=== PATIENT | male | born 1965 | race Caucasian/White ===

== ENCOUNTER 2016-09-16 01:31 | Inpatient (IN) | payer MEDICAID ==
[2016-09-16] VITALS (12 sets, daily range): BP systolic 116–138; BP diastolic 68–87
[~2016-09-16] VITALS: Ht 185.4 cm; Wt 83.5 kg
--- NOTE | 2016-09-16 01:57 | NUR ---
PT A/OX4 BREATHING EFFORTLESSLY ON ROOM AIR, PT STATES HE HAS BEEN HAVING A LUMP BY HIS TESTICLES FOR A WHILE AND WAS LIFTING A HEAVY BOX OF T SHIRTS TODAY AND FELT SOMETHING POP, SCROTUM IS SWOLLEN, MD MADE AWARE WILL CONTINUE TO MONITOR
[2016-09-16] MEDS ORDERED: KETOROLAC TROMETHAMINE INJ 60 MG/2 ML VIAL IM ONE ×2 (02:14→02:30)
[2016-09-16 02:41] LABS: APPEARANCE,URINE CLEAR (CLEAR); BILIRUBIN,URINE NEGATIVE (NEGATIVE); BLOOD, URINE NEGATIVE Ery/uL (NEGATIVE); COLOR,URINE YELLOW (YELLOW); KETONES,URINE NEGATIVE (NEGATIVE); LEUKOCYTE ESTERASE ,URINE NEGATIVE (NEGATIVE); NITRITE, URINE NEGATIVE (NEGATIVE); PROTEIN,URINE NEGATIVE (NEGATIVE); UGLUCOSE NEGATIVE (NEGATIVE); UROBILINOGEN,URINE 0.2 EU/dL (0.2)
[2016-09-16] MEDS ORDERED: HYDROMORPHONE 1 MG/1 ML DISP.SYRIN IV ONE (03:30)
[2016-09-16] MEDS ORDERED: ONDANSETRON HCL/PF 4 MG/2 ML VIAL IV ONE (03:30)
[2016-09-16] MEDS ORDERED: ONDANSETRON HCL/PF 4 MG/2 ML VIAL ONE (03:56)
[2016-09-16] MEDS ORDERED: HYDROMORPHONE 1 MG/1 ML DISP.SYRIN ONE (03:56)
--- NOTE | 2016-09-16 04:20 | NUR ---
PT TRIED TO PUSH HERNIA BACK IN AND WAS SUCCESSFUL WITH MD AT BEDSIDE, PT ASKED TO STAND UP AND HERNIA CAME BACK OUT, MD AT BEDSIDE WILL CONTINUE TO MONITOR.
[2016-09-16 05:09] LABS: BASOPHILS % (AUTO) 0.7 % (0.0-2.0); EOSINOPHILS # (AUTO) 0.3 /CMM (0.0-0.7); EOSINOPHILS % (AUTO) 5.2 % (0.0-6.0); HEMATOCRIT 26 % (39-51); HEMOGLOBIN 7.9 g/dL (13.5-17.5); LYMPHOCYTES # (AUTO) 1.5 /CMM (0.8-4.8); LYMPHOCYTES % (AUTO) 24.8 % (20.0-44.0); MEAN CORPUSCULAR HEMOGLOBIN 19 PG (26.0-33.0); MEAN CORPUSCULAR HGB CONC 30 g/dl (31.0-36.0); MEAN CORPUSCULAR VOLUME 64 fL (80-96); MONOCYTES # (AUTO) 0.5 /CMM (0.1-1.30); MONOCYTES % (AUTO) 7.6 % (2.0-12.0); NEUTROPHILS # (AUTO) 3.8 /CMM (1.8-8.9); NEUTROPHILS % (AUTO) 61.7 % (43.0-81.0); PLATELET COUNT (AUTO) 306 /CMM (150-450); RDW COEFFICIENT OF VARIATION 16.7 (11.5-15.0); RED BLOOD CELL COUNT(AUTO) 4.14 MIL/uL (4.5-6.0); WHITE BLOOD COUNT (AUTO) 6.2 K/uL (4.3-11.0)
[2016-09-16 05:18] LABS: CALCIUM, SERUM 8.3 mg/dL (8.5-10.1); CREATININE 0.8 mg/dL (0.6-1.3); POTASSIUM 3.9 mmol/L (3.5-5.1)
[2016-09-16 05:22] LABS: INR 0.94 (0.87-1.13)
--- NOTE | 2016-09-16 05:45 | NUR ---
admission notes: received report from [facility] car framer. pt came in for hernia, scrotal swelling x1 day, pt is a/o x3, brought to the unit via gurney. noted ble edema and both feet edema. received with iv on right side of the forehead, nursing sup lanel aware, for picc line/ midline insertion. vs taken and recorded, pt oriented to unit policy and rounding, took pictures of skin issues, however pt refused for picture of scrotum, education provided to the pt. ble offloaded. inventory of belonging completed by denise vyas. safety precautions for fall initiated call light in reach,will continue to monitor
[2016-09-16 06:00] LABS: EOSINOPHILS % (MANUAL) 6 % (0-4); LYMPHOCYTES % (MANUAL) 21 % (16-48); MONOCYTES % (MANUAL) 8 % (0-11.0); NEUTROPHILS % (MANUAL) 65 (42-76); PLATELET ESTIMATE ADEQUATE
[2016-09-16 06:01] LABS: HYPOCHROMASIA 2+
--- NOTE | 2016-09-16 06:45 | NUR ---
ms rn notes: tried to insert new iv, but unsuccessful, per rn sup already contacted for midline insertion, md aware, also found 5syringes and spoon on pt's bag but claiming its his friends, confiscated placed on francis bag,with pt's sticker, per harlette to endorse it to day rn, place it on four slide machine setter the nurses station.
--- NOTE | 2016-09-16 06:55 | NUR ---
ms rn notes: dr elena called back, informed pt already here, he stated he will put in the order, also made aware of midline insertion and pt's h/h 7.03/22
[2016-09-16] MEDS ORDERED: ONDANSETRON HCL/PF 4 MG/2 ML VIAL IVP PRN (07:00)
[2016-09-16] MEDS ORDERED: Z GUARD REMEDY 2 OZ OINT TP PRN (07:00)
[2016-09-16] MEDS ORDERED: MAGNESIUM HYDROXIDE 30 ML UDC PO PRN (07:00)
[2016-09-16] MEDS ORDERED: HYDROCODONE/APAP 5/325MG 1 EACH TABLET PO PRN ×2 (07:00→12:30)
[2016-09-16] MEDS ORDERED: MAG HYDROX/AL HYDROX/SIMETH 30 ML UDC PO PRN (07:00)
[2016-09-16] MEDS ORDERED: MORPHINE SULFATE INJ 2 MG/ML DISP.SYRIN IV PRN (07:00)
[2016-09-16] MEDS ORDERED: ACETAMINOPHEN 325 MG TABLET PO PRN (07:00)
--- NOTE | 2016-09-16 07:00 | NUR ---
ms rn notes: per pt he's willing to receive flu vaccine. will put an order
--- NOTE | 2016-09-16 07:02 | NUR ---
MS RN NOTES: PER PT HE'S WILLING TO RECEIVE FLU VACCINE PRIOR TO DC, ASKED RN AMARI IF OKAY TO PUT THE ORDER NOW, BUT SINCE PT WILL HAVE POSSIBLE SURGERY WERE CONCERN ABOUT ANY POTENTIAL REACTION, SO WILL ENDORSE TO DAY RN TO PLEASE GIVE FLU VACCINE PRIOR TO DC.
--- NOTE | 2016-09-16 07:04 | NUR ---
ms rn closing notes: pt on bed, sleeping, no facial grimace noted, ble kept offloaded on pillows. on npo for surgical consult with dr burns. vs stable, needs attended. safety precautions for fall remains engaged, call light in reach,will endorse to day rn for jack.
--- NOTE | 2016-09-16 07:15 | NUR ---
MS RN NOTES: RECEIVED CALL FROM KOLE KERR RN STATED HE'S NOT AVAILABLE TO COME, BUT HE WILL FIND SOMEONE TO DO THE MIDLINE, RN SUP MADE AWARE
[2016-09-16] MEDS: PANTOPRAZOLE 40 MG TABLET.DR PO SCH (07:30)
--- NOTE | 2016-09-16 07:46 | NUR ---
rn notes: received call from dr burns, per dr burns to obtain consent for repair of incarcerated right inguinal hernia, he also added he will see the pt before sending him to or, procedure will be 10am
--- NOTE | 2016-09-16 07:55 | NUR ---
RN NOTES: PT SIGNED ALL CONSENT FOR SURGERY AND MIDLINE INSERTION,
--- NOTE | 2016-09-16 08:30 | NUR ---
MS RN NOTES PATIENT IN BED RESTING NO SOB OR ACUTE DISTRESS NOTED. BED IN LOW LOCKED POSITION. CALL LIGHT WITHIN REACH. WILL CONTINUE TO MONITOR.
[2016-09-16] MEDS ORDERED: BUPIVACAINE MPF W/EPI 0.25% 30 ML VIAL ONE (09:53)
[2016-09-16 10:01] LABS: IRON, SERUM 19 ug/dl (50-175); TOTAL IRON BINDING CAPACITY 493 ug/dl (250-450)
[2016-09-16 10:14] LABS: FERRITIN 9 ng/mL (8-388)
[2016-09-16] MEDS ORDERED: FENTANYL PF 100MCG/2ML AMPUL ONE (10:29)
[2016-09-16] MEDS ORDERED: MIDAZOLAM HCL 2 MG/2ML VIAL ONE (10:30)
[2016-09-16] MEDS ORDERED: ROCURONIUM BROMIDE 50 MG/5 ML ONE (10:44)
--- NOTE | 2016-09-16 12:00 | NUR ---
MS RN NOTES PATIENT RETURNED FROM OR IN STABLE CONDITION. WILL CONTINUE TO MONITOR CLOSELY.
[2016-09-16] MEDS: MORPHINE SULFATE INJ 2 MG/ML DISP.SYRIN IV PRN ×4 (14:58→21:19)
--- NOTE | 2016-09-16 19:54 | NUR ---
MS RN NOTES PATIENT IN BED RESTING NO SOB OR ACUTE DISTRESS NOTE.D ALL DUE MEDICATIONS GIVEN. ALL NEEDS MET. PAIN MANAGED WITH MEDICATION WITH MIDLINE ON RIGHT UPPER ARM, INTACT PATENT. WILL ENDORSE TO PM SHIFT.
--- NOTE | 2016-09-16 20:00 | NUR ---
RN INITIAL NOTES RECEIVED PX AWAKE, ALERT, ORIENTED X 3, ON ROOM AIR, WITH DRESSING ON THE SCROTAL AREA WITH SHAKIRA DRAIN, DRAINING SANGUINOUS SECRETION (50 ML) ON NEGATIVE SUCTION; PX ABLE TO MOVE BY SELF; DENIED SOB, N/V, DIZZINESS BUT COMPLAINED OF 8/10 ACHING RIGHT SCROTAL PAIN, MORPHINE GIVEN. DISCUSSED PLAN OF CARE.
--- NOTE | 2016-09-16 22:00 | NUR ---
RN NOTES HAD ANOTHER PAIN ON THE RIGHT SCROTAL AREA, NO OBVIOUS BLEEDING NOTED, MORPHINE GIVEN IV.
[2016-09-16] MEDS: ZOLPIDEM TARTRATE 5 MG TABLET PO PRN (22:39)
--- NOTE | 2016-09-17 | NUR ---
RN NOTES PX COMPLAINING OF RIGHT INGUINAL PAIN, ACHING, MORPHINE GIVEN. HE SAYS THE SLEEPING PILL DID NOT WORK.
[2016-09-17] MEDS: MORPHINE SULFATE INJ 2 MG/ML DISP.SYRIN IV PRN ×11 (00:03→23:30)
--- NOTE | 2016-09-17 01:20 | NUR ---
RN NOTES PX COMPLAINED OF PAIN, RIGHT INGUINAL AREA. HE SAID THAT THE LAST PAIN SHOT WORKED FOR [address] CONCEPCION.
[2016-09-17] MEDS ORDERED: HYDROMORPHONE 1 MG/1 ML DISP.SYRIN ONE (01:39)
--- NOTE | 2016-09-17 01:44 | NUR ---
RN NOTES DR. CONCEPCION MADE AWARE OF PAIN CONDITION OF PATIENT, NEW ORDER MADE, DILAUDID 1 MG IV GIVEN.
[2016-09-17] MEDS ORDERED: HYDROMORPHONE 1 MG/1 ML DISP.SYRIN IV PRN (02:00)
--- NOTE | 2016-09-17 06:10 | NUR ---
RN NOTES PX CONDITION AND NEURO STATUS UNCHANGED; CONTINUED TO HAVE REGULAR EPISODES OF PAIN ON THE RIGHT INGUINAL AREA, MANAGED BY MORPHINE 2 MG IV Q 2 WELL 1 MG DILAUDID Q4, DENIED N/V, DIZZINESS, SOB; SKIN REMAINED INTACT, PIV REMAINED INTACT AND PATENT; SURGICAL SITE CLEAN, DRY, INTACT, SHAKIRA DRAIN ON NEG SUCTION; WILL ENDORSE TO NEXT RN.
--- NOTE | 2016-09-17 07:20 | NUR ---
MS RN- OPENING NOTE PT ASLEEP, NO S/S OF DISTRESS, BREATHING IS EVEN AND UNLABORED ON RA, MIDLINE INTACT, SHAKIRA DRAIN IN PLACE WITH SEROUS DRAINAGE, BEDSIDE RAILS UP X2, CALL LIGHT WITHIN REACH.
[2016-09-17] MEDS: PANTOPRAZOLE 40 MG TABLET.DR PO SCH (07:30)
[2016-09-17 08:00] VITALS: BP 110/61
[2016-09-17 08:05] LABS: EOSINOPHILS # (AUTO) 0.1 /CMM (0.0-0.7); EOSINOPHILS % (AUTO) 0.7 % (0.0-6.0); HEMATOCRIT 24 % (39-51); LYMPHOCYTES # (AUTO) 1.4 /CMM (0.8-4.8); LYMPHOCYTES % (AUTO) 15.7 % (20.0-44.0); MEAN CORPUSCULAR HEMOGLOBIN 19 PG (26.0-33.0); MEAN CORPUSCULAR HGB CONC 30 g/dl (31.0-36.0); MEAN CORPUSCULAR VOLUME 64 fL (80-96); MONOCYTES # (AUTO) 0.6 /CMM (0.1-1.30); MONOCYTES % (AUTO) 7.1 % (2.0-12.0); NEUTROPHILS # (AUTO) 6.6 /CMM (1.8-8.9); NEUTROPHILS % (AUTO) 76.5 % (43.0-81.0); PLATELET COUNT (AUTO) 277 /CMM (150-450); RDW COEFFICIENT OF VARIATION 17.7 (11.5-15.0); RED BLOOD CELL COUNT(AUTO) 3.69 MIL/uL (4.5-6.0); WHITE BLOOD COUNT (AUTO) 8.7 K/uL (4.3-11.0)
[2016-09-17 08:24] LABS: RETICULOCYTE COUNT 1.5 % (0.6-2.5)
[2016-09-17 08:58] LABS: THYROID STIMULATING HORMONE 0.785 uIU/mL (0.358-3.74)
[2016-09-17 09:17] LABS: BAND % (MANUAL) 1 % (0.0-5.0); EOSINOPHILS % (MANUAL) 1 % (0-4); HYPOCHROMASIA 2+; LYMPHOCYTES % (MANUAL) 15 % (16-48); MONOCYTES % (MANUAL) 9 % (0-11.0); NEUTROPHILS % (MANUAL) 74 (42-76); PLATELET ESTIMATE ADEQUATE
[2016-09-17 09:18] LABS: ANISOCYTOSIS 1+
--- NOTE | 2016-09-17 09:25 | NUR ---
WOUND CARE CONSULT: PT NOT SEEN YET FOR SKIN ASSESSMENT DUE TO PT SLEEPING SOUNDLY. PT PREVIOUSLY MEDICATED FOR PAIN PER NURSE. ADMISSION PHOTO SHOWS DRY ABRASIONS TO ABDOMEN. WILL SEE PT PT CONDITION PERMITS. PER NURSING STAFF, PT IS AMBULATORY AND CONTINENT.
[2016-09-17 09:28] LABS: CALCIUM, SERUM 8.2 mg/dL (8.5-10.1); CREATININE 0.9 mg/dL (0.6-1.3); MAGNESIUM 1.8 mg/dL (1.8-2.4); PHOSPHORUS 2.9 mg/dL (2.5-4.9); POTASSIUM 3.5 mmol/L (3.5-5.1)
--- NOTE | 2016-09-17 11:55 | NUR ---
M/S RN - NOTE DR TILLMAN NOTIFIED OF CURRENT H/H. PER DR. TILLMAN NO FURTHER ORDERS GIVEN, WILL PASS TO HEMATOLOGY.
--- NOTE | 2016-09-17 14:54 | NUR ---
M/S RN - NOTE SPOKE WITH VERONIKA BRADLEY TO DC SAHKIRA DRAIN. SHAKIRA DRAIN REMOVED PT TOLERATED WELL. TOTAL OF 30 ML SEROSANGUINEOUS DRAINAGE IN DRAIN. CLEARED FOR DC BY DR CARLOS. DR TILLMAN MADE AWARE.
[2016-09-17] MEDS ORDERED: Docusate Sodium PO (15:59)
[2016-09-17] MEDS ORDERED: HYDR-3326 PO (15:59)
[2016-09-17 16:00] VITALS: BP 120/76
[2016-09-17] MEDS ORDERED: FERR-58 PO (16:13)
[2016-09-17] MEDS: DOCUSATE SODIUM 250 MG CAPSULE PO SCH (16:17)
--- NOTE | 2016-09-17 17:37 | NUR ---
M/S RN - NOTE SPOKE WITH DR. ESTEVEZ REGARDING H/H AND DISCHARGE. NO FURTHER ORDERS GIVEN. DR. ESTEVEZ RECOMMENDS PT FOLLOW UP WITH PRIMARY PHYSICIAN SOON POSSIBLE REGARDING SEVERE ANEMIA.
--- NOTE | 2016-09-17 19:11 | NUR ---
per patient, he has no home to go, his roommate wont allow him to return to the home. Offered homeless [facility] but patient refused and stated he will make arrangement to go to a hotel. Patient hgb is currently low, per MD- no blood transfusion needed, iron supplements prescription was given to patient. Patient was advised to f/u with surgeon next week, list of [facility] clinics [facility] hospital was also given for patient to follow up after discharge. Addendum: 09/17/16 at 2 by CHRIS WILKINSON RN Amended: Links added.
--- NOTE | 2016-09-17 19:50 | NUR ---
MS RN NOTE: PATIENT RESTING IN BED, NO ACUTE DISTRESS NOTED. BREATHING EVEN AND UNLABORED, NO SOB NOTED. MIDLINE TO RIGHT UPPER ARM IN PLACE. BED LOCKED AND IN LOWEST POSITION, CALL LIGHT IN REACH. WILL CONTINUE TO MONITOR.
[2016-09-17 20:00] VITALS: BP 107/65
--- NOTE | 2016-09-17 21:05 | NUR ---
MS RN NOTE: PATIENT COMPLAINS OF PAIN TO ABDOMEN 03/06, MORPHINE 2M IV GIVEN PER MD ORDER. WILL CONTINUE TO MONITOR.
--- NOTE | 2016-09-17 23:30 | NUR ---
MS RN NOTE: PATIENT COMPLAINS OF PAIN TO ABDOMEN 03/06, MORPHINE 2M IV GIVEN PER MD ORDER. WILL CONTINUE TO MONITOR.
[2016-09-18] MEDS: ZOLPIDEM TARTRATE 5 MG TABLET PO PRN (00:21)
[2016-09-18] MEDS: MORPHINE SULFATE INJ 2 MG/ML DISP.SYRIN IV PRN ×5 (01:49→14:53)
--- NOTE | 2016-09-18 02:15 | NUR ---
MS RN NOTE: PATIENT COMPLAINS OF PAIN TO ABDOMEN 03/06, MORPHINE 2M IV GIVEN PER MD ORDER. WILL CONTINUE TO MONITOR.
--- NOTE | 2016-09-18 05:30 | NUR ---
MS RN NOTE: PATIENT COMPLAINS OF PAIN TO ABDOMEN 03/06, MORPHINE 2M IV GIVEN PER MD ORDER. WILL CONTINUE TO MONITOR.
--- NOTE | 2016-09-18 06:10 | NUR ---
MS RN NOTE: PATIENT RESTING IN BED, NO ACUTE DISTRESS NOTED. BREATHING EVEN AND UNLABORED, NO SOB NOTED. MIDLINE TO RIGHT UPPER ARM IN PLACE. BED LOCKED AND IN LOWEST POSITION, CALL LIGHT IN REACH. WILL ENDORSE TO DAY NURSE TO CONTINUE WITH PLAN OF CARE.
--- NOTE | 2016-09-18 07:05 | NUR ---
MS RN OPENING NOTES RECEIVED PT IN STABLE CONDITION, AWAKE AND LYING IN BED. NO SOB OR SIGNS OF DISTRESS NOTED. BED IN LOW LOCKED POSITION, SIDE RAILS UP X2, CALL LIGHT WITHIN PT REACH. WILL CONTINUE TO MONITOR.
[2016-09-18 07:29] LABS: BASOPHILS % (AUTO) 0.1 % (0.0-2.0); EOSINOPHILS # (AUTO) 0.2 /CMM (0.0-0.7); HEMATOCRIT 25 % (39-51); HEMOGLOBIN 7.6 g/dL (13.5-17.5); LYMPHOCYTES # (AUTO) 1.5 /CMM (0.8-4.8); LYMPHOCYTES % (AUTO) 19.4 % (20.0-44.0); MEAN CORPUSCULAR HEMOGLOBIN 19 PG (26.0-33.0); MEAN CORPUSCULAR HGB CONC 30 g/dl (31.0-36.0); MEAN CORPUSCULAR VOLUME 63 fL (80-96); MONOCYTES # (AUTO) 0.5 /CMM (0.1-1.30); MONOCYTES % (AUTO) 6.9 % (2.0-12.0); NEUTROPHILS # (AUTO) 5.6 /CMM (1.8-8.9); NEUTROPHILS % (AUTO) 71.6 % (43.0-81.0); PLATELET COUNT (AUTO) 312 /CMM (150-450); RED BLOOD CELL COUNT(AUTO) 4.03 MIL/uL (4.5-6.0); WHITE BLOOD COUNT (AUTO) 7.8 K/uL (4.3-11.0)
[2016-09-18 08:00] VITALS: BP 121/68
[2016-09-18 08:15] VITALS: BP 120/68
[2016-09-18] MEDS: PANTOPRAZOLE 40 MG TABLET.DR PO SCH (08:22)
[2016-09-18] MEDS: DOCUSATE SODIUM 250 MG CAPSULE PO SCH (08:24)
[2016-09-18 08:55] LABS: BASOPHILS % (MANUAL) 0 % (0.0-2.0); EOSINOPHILS % (MANUAL) 0 % (0-4); HYPOCHROMASIA 3+; LYMPHOCYTES % (MANUAL) 21 % (16-48); MONOCYTES % (MANUAL) 11 % (0-11.0); NEUTROPHILS % (MANUAL) 68 (42-76); PLATELET ESTIMATE ADEQUATE
[2016-09-18 08:56] LABS: ANISOCYTOSIS 1+; OVALOCYTES 1+
[2016-09-18] MEDS ORDERED: FERROUS SULFATE (325 MG) 325 MG/TAB TABLET PO SCH (12:00)
--- NOTE | 2016-09-18 15:30 | NUR ---
MIDLINE REMOVED, PRESSURE DRESSING APPLIED, NO BLEEDING OR PAIN NOTED.
--- NOTE | 2016-09-18 15:56 | NUR ---
DANIELA NOTES PT. WAS SAFELY DISCHARGED FROM THE UNIT IN STABLE CONDITION. HE WAS WHEELED DOWNSTAIRS AND TAKEN TO HIS TAXI BY THE STEEL UNLOADER. NO COMPLAINTS OF PAIN OR ANY SIGNS OF DISTRESS NOTED. ALL PT NEEDS AND ORDERS WERE CARRIED OUT DURING HOSPITALIZATION.
[2016-09-18 16:00] VITALS: BP 126/83
== END 2016-09-18 15:55 | disposition home or self-care (01) | DRG 228 ==
LOC: ER 01:35 → MEDSG2 04:45
PROVIDERS: ADMIT Internal Medicine; ATTEND Internal Medicine
PROC: 0YU50JZ Supplement Right Inguinal Region with Synthetic Substitute, Open Approach (ICD-10-PCS; principal; 2016-09-16 10:57)
PROC: 05H533Z Insertion of Infusion Device into Right Subclavian Vein, Percutaneous Approach (ICD-10-PCS; principal; 2016-09-16 10:57)
DX: K40.30 Unilateral inguinal hernia, with obstruction, without gangrene, not specified as recurrent (principal); F11.10 Opioid abuse, uncomplicated; D50.0 Iron deficiency anemia secondary to blood loss (chronic); I86.1 Scrotal varices; N43.3 Hydrocele, unspecified; N50.3 Cyst of epididymis; Z93.3 Colostomy status; Z71.51 Drug abuse counseling and surveillance of drug abuser; Z59.0 Homelessness
CPT/HCPCS: 36415; 71010-TC; 76870-TC; 80048-TC; 81000-TC; 82728-TC; 82746; 83540-TC; 83735-TC; 84100-TC; 84439-TC; 84443-TC; 85025-TC; 85045-TC; 85730-TC; 86850-TC; 87081-TC; A4606; A6402; C1781; J0690; J1100; J1170; J1885; J2250; J2270; J2405; J2704; J3010; J3490; Z7610

== ENCOUNTER 2016-09-21 13:33 | Emergency (ER) | payer MEDICAID ==
[~2016-09-21] VITALS: Ht 185.4 cm; Wt 80.3 kg
[~2016-09-21 13:33] MED LIST: Docusate Sodium PO; FERR-58 PO; HYDR-3326 PO
[2016-09-21 13:49] VITALS: BP 100/74
== END 2016-09-21 14:17 | disposition home or self-care (01) ==
LOC: ER 13:37
DX: K46.9 Unspecified abdominal hernia without obstruction or gangrene (principal); Z90.89 Acquired absence of other organs; Z91.048 Other nonmedicinal substance allergy status
CPT/HCPCS: 99281; A4606; Z7610; Z7502

== ENCOUNTER 2018-07-14 17:29 | Inpatient (IN) | payer MEDICAID ==
[~2018-07-14] VITALS: Ht 185.4 cm; Wt 86.6 kg
[~2018-07-14 17:29] MED LIST changes: -FERR-58 PO; +FERR325T23 PO; -HYDR-3326 PO; +HYDR-3974 PO
--- NOTE | 2018-07-14 18:00 | NUR ---
PT BIB SELF C/O ABSCESS ON LT UPPER ARM, UNK SOURCE, POSS INSECT BITE PER PT, PT IS AAOX4, NOT IN RESPIRATORY DISTRESS, KEPT RESTED AND COMFORTABLE.
--- NOTE | 2018-07-14 18:12 | NUR ---
AT BEDSIDE FOR EVAL.
[2018-07-14] MEDS ORDERED: VANCOMYCIN 1 GM in IV D5W 250 ML IV ONE (18:30)
[2018-07-14] MEDS ORDERED: IV NS 0.9% 1,000 ML BAG IV ONE (18:30)
--- NOTE | 2018-07-14 18:52 | NUR ---
HAVING DIFFICULTY INSERTING SALINE LOCK.
--- NOTE | 2018-07-14 19:00 | NUR ---
CALLED NURSING SUP FOR PICC LINE NURSE.
--- NOTE | 2018-07-14 19:22 | NUR ---
REPORT GIVEN TO DANIELA LORD FOR SEAMUS.
--- NOTE | 2018-07-14 19:34 | NUR ---
PICC LINE NURSE AT BEDSIDE.
[2018-07-14 19:47] LABS: APPEARANCE,URINE Clear (CLEAR); BILIRUBIN,URINE Negative (NEGATIVE); BLOOD, URINE Small Ery/uL (NEGATIVE); COLOR,URINE Yellow (YELLOW); KETONES,URINE Negative (NEGATIVE); LEUKOCYTE ESTERASE ,URINE Negative (NEGATIVE); NITRITE, URINE Negative (NEGATIVE); PH,URINE 5.5 (5.0-8.0); PROTEIN,URINE 100 mg/dl (NEGATIVE); UGLUCOSE Negative (NEGATIVE); UROBILINOGEN,URINE 0.2 EU/dL (0.2)
--- NOTE | 2018-07-14 19:50 | NUR ---
LABS DRAWN FROM PICC LINE AND SENT TO LAB.
[2018-07-14 19:53] LABS: BACTERIA,URINE None seen /HPF (None Seen); SQUAMOUS EPITHELIAL CELL,UR Few /HPF (None Seen); WBC,URINE 0-2 /HPF (0-3)
[2018-07-14] MEDS ORDERED: LIDOCAINE 2%-EPI 1:100,000 30 ML VIAL ONE (19:57)
[2018-07-14 19:59] LABS: BASOPHILS % (AUTO) 0.2 % (0.0-2.0); EOSINOPHILS % (AUTO) 0.4 % (0.0-6.0); HEMATOCRIT 25 % (39-51); HEMOGLOBIN 8.2 g/dL (13.5-17.5); LYMPHOCYTES # (AUTO) 0.5 /CMM (0.8-4.8); MEAN CORPUSCULAR HGB CONC 33 g/dl (31.0-36.0); MEAN CORPUSCULAR VOLUME 78 fL (80-96); MONOCYTES % (AUTO) 8.3 % (2.0-12.0); NEUTROPHILS # (AUTO) 10.1 /CMM (1.8-8.9); NEUTROPHILS % (AUTO) 87.1 % (43.0-81.0); PLATELET COUNT (AUTO) 380 /CMM (150-450); RED BLOOD CELL COUNT(AUTO) 3.22 MIL/uL (4.5-6.0); WHITE BLOOD COUNT (AUTO) 11.7 K/uL (4.3-11.0)
[2018-07-14 20:10] LABS: POTASSIUM 4.4 mmol/L (3.5-5.1)
[2018-07-14 20:15] LABS: CREATININE 7.6 mg/dL (0.6-1.3)
[2018-07-14 20:16] LABS: ALBUMIN 2.1 g/dL (3.4-5.0); BILIRUBIN,DIRECT 0.2 mg/dL (0.0-0.2); BILIRUBIN,TOTAL 0.4 mg/dL (0.2-1.0); TOTAL PROTEIN, SERUM 7.2 g/dL (6.4-8.2)
--- NOTE | 2018-07-14 20:30 | NUR ---
ER PROVIDER AT BEDSIDE INCISION AND DRAINAGE.
--- NOTE | 2018-07-14 21:33 | NUR ---
Patient is resting comfortably in bed with eyes closed. Easily aroused. VSS. NAD NOTED.
[2018-07-14] MEDS ORDERED: PIPERACILLIN /TAZOBACTAM 3.375 G VIAL IV ONE (21:43)
[2018-07-14] MEDS ORDERED: PIPERACILLIN /TAZOBACTAM 3.375 G in IV D5W 50 ML IV ONE (22:00)
[2018-07-14 22:05] VITALS: BP 149/90
--- NOTE | 2018-07-14 22:15 | NUR ---
RN INITIAL NOTES RECEIVED PT FROM ER, PT A&OX4, ABSCESS L UPPER ARM, PICS TAKEN. R UPPER PICC WITH 0.9 INFUSING @100. VSS, PT ORIENTED TO FLOOR. ALL SAFETY PRECAUTION TAKEN, BED IN LOW LOCKED POSITION. WILL CONT MONITOR.
[2018-07-14] MEDS ORDERED: Z GUARD REMEDY 2 OZ OINT TP PRN (23:00)
[2018-07-14] MEDS ORDERED: MAGNESIUM HYDROXIDE 30 ML UDC PO PRN (23:00)
[2018-07-14] MEDS ORDERED: MAG HYDROX/AL HYDROX/SIMETH 30 ML UDC PO PRN (23:00)
[2018-07-14] MEDS ORDERED: ACETAMINOPHEN 325 MG TABLET PO PRN (23:00)
[2018-07-14] MEDS: IV NS 0.9% 1,000 ML IV PRN (23:13)
[2018-07-15] MEDS ORDERED: MORPHINE SULFATE INJ 4 MG/ML DISP.SYRIN ONE ×2 (00:06→05:55)
[2018-07-15] MEDS: MORPHINE SULFATE INJ 2 MG/ML DISP.SYRIN IV PRN ×2 (00:09→05:56)
[2018-07-15 04:00] VITALS: BP 133/74
[2018-07-15] MEDS ORDERED: PIPERACILLIN /TAZOBACTAM 2.25 G in IV D5W 50 ML IV SCH (05:00)
[2018-07-15] MEDS ORDERED: PIPERACILLIN /TAZOBACTAM 2.25 G VIAL IV ONE (05:22)
[2018-07-15 06:42] LABS: BASOPHILS % (AUTO) 0.3 % (0.0-2.0); EOSINOPHILS % (AUTO) 1.6 % (0.0-6.0); HEMATOCRIT 23 % (39-51); HEMOGLOBIN 7.5 g/dL (13.5-17.5); LYMPHOCYTES # (AUTO) 0.9 /CMM (0.8-4.8); LYMPHOCYTES % (AUTO) 9.3 % (20.0-44.0); MEAN CORPUSCULAR HGB CONC 33 g/dl (31.0-36.0); MEAN CORPUSCULAR VOLUME 78 fL (80-96); MONOCYTES # (AUTO) 0.9 /CMM (0.1-1.30); MONOCYTES % (AUTO) 9.3 % (2.0-12.0); NEUTROPHILS # (AUTO) 7.4 /CMM (1.8-8.9); NEUTROPHILS % (AUTO) 79.5 % (43.0-81.0); PLATELET COUNT (AUTO) 338 /CMM (150-450); RED BLOOD CELL COUNT(AUTO) 2.88 MIL/uL (4.5-6.0); WHITE BLOOD COUNT (AUTO) 9.3 K/uL (4.3-11.0)
[2018-07-15 06:57] LABS: CALCIUM, SERUM 7.8 mg/dL (8.5-10.1); MAGNESIUM 1.9 mg/dL (1.8-2.4); PHOSPHORUS 6.2 mg/dL (2.5-4.9); POTASSIUM 4.5 mmol/L (3.5-5.1)
[2018-07-15 06:59] LABS: CREATININE 7.9 mg/dL (0.6-1.3)
--- NOTE | 2018-07-15 07:04 | NUR ---
RN CLOSING NOTES NO CHANGE IN PTS CONDITION OVER SHIFT. ALL ADMISSION ORDERS CARRIED OUT. ALL DUE MEDS GIVEN. PY KEPT SAFE AND ALL NEED ANTICIPATED AND MET. ZOSYN AND MORPHINE X2 WAS REMOVED BY LICENSING MANAGER BY OVERRIDING MEDS. MEDS WERE ENTERED MANUALLY BECAUSE STOCK MEDS CANT BE SCAND. 2MG MORPHINE WAS GIVEN AND 2MG MORPHINE WAS WASTED X2. WILL ENDORSE TO AM RN.
[2018-07-15 07:23] LABS: THYROID STIMULATING HORMONE 5.092 uIU/mL (0.358-3.74)
--- NOTE | 2018-07-15 07:39 | NUR ---
RN OPENING NOTE PATIENT IN BED IN STABLE CONDITION. A/O X 4. NO SIGNS OF ACUTE DISTRESS. NO COMPLAIN OF PAIN OR DISCOMFORT. ALL NEEDS ATTENDED TO. CALL LIGHT WITHIN REACH. WILL CONTINUE TO MONITOR TO ENSURE SAFETY.
[2018-07-15 08:00] VITALS: BP 130/70
[2018-07-15] MEDS ORDERED: FEE PK DOSING 1 MIN EA MC ONE (08:07)
[2018-07-15] MEDS: IV NS 0.9% 1,000 ML IV PRN (10:35)
--- NOTE | 2018-07-15 11:00 | NUR ---
RN NOTES SEEN BY DR KOLE AUGUSTIN AND RELAYED PATIENT'S BUN/CR OF 67/7.9H ALSO RELAYED KIDNEY US RESULTS. PER DR KOLE Garza HE WILL PUT IN ORDER NEEDED.
[2018-07-15] MEDS: PIPERACILLIN /TAZOBACTAM 3.375 G in IV D5W 100 ML IV SCH (12:42)
[2018-07-15 16:00] VITALS: BP 135/80
--- NOTE | 2018-07-15 18:24 | NUR ---
RN CLOSING NOTE PATIENT IN BED IN STABLE CONDITION. A/O X 4. NO SIGNS OF ACUTE DISTRESS. NO COMPLAIN OF PAIN OR DISCOMFORT. ALL NEEDS ATTENDED TO. CALL LIGHT WITHIN REACH. WILL ENDORSE TO NEXT SHIFT FOR CONTINUITY OF CARE.
[2018-07-15 20:00] VITALS: BP 127/79
--- NOTE | 2018-07-15 20:00 | NUR ---
RN INITIAL NOTE RECEIVED PATIENT IN BED IN STABLE CONDITION. A/O X 4. NO SIGNS OF ACUTE DISTRESS. PT COMPLAIN OF PAIN 02/03. CALL LIGHT WITHIN REACH. WILL CONTINUE TO MONITOR.
[2018-07-15] MEDS: ONDANSETRON HCL/PF 4 MG/2 ML VIAL IVP PRN (20:01)
[2018-07-15] MEDS: HYDROMORPHONE INJ 2 MG/ML DISP.SYRIN IV PRN (20:02)
[2018-07-16] MEDS: PIPERACILLIN /TAZOBACTAM 3.375 G in IV D5W 100 ML IV SCH ×2 (00:22→12:15)
[2018-07-16 04:00] VITALS: BP 129/74
--- NOTE | 2018-07-16 06:32 | NUR ---
RN CLOSING NOTE PATIENT IN BED IN STABLE CONDITION. A/O X 4. NO SIGNS OF ACUTE DISTRESS. ALL NEEDS ATTENDED TO. CALL LIGHT WITHIN REACH. WILL ENDORSE TO NEXT SHIFT FOR CONTINUITY OF CARE.
--- NOTE | 2018-07-16 07:45 | NUR ---
RN OPENING NOTE: RECEIVED PATIENT IN BED, AWAKE, ALERT AND VERBALLY RESPONSIVE. RESPIRATION EVEN AND UNLABORED SATURATING 98% ON ROOM AIR. DENIED ANY PAIN AT THIS TIME. (L) UA NOTED WITH DRY AND CLEAN KERLIX AND ELEVATED WITH PILLOW. (R) UA PICC LINE NOTED PATENT AND INTACT INFUSING WITH NS @100ML/HR. HOB ELEVATED. BED ALARMED AND LOCKED AT ALL TIMES. CALL LIGHT WITHIN REACH. NEEDS ANTICIPATED.
[2018-07-16 08:00] VITALS: BP 152/86
[2018-07-16 08:03] LABS: BASOPHILS % (AUTO) 0.3 % (0.0-2.0); EOSINOPHILS % (AUTO) 4.2 % (0.0-6.0); HEMATOCRIT 22 % (39-51); HEMOGLOBIN 7.3 g/dL (13.5-17.5); LYMPHOCYTES # (AUTO) 0.9 /CMM (0.8-4.8); LYMPHOCYTES % (AUTO) 13.8 % (20.0-44.0); MEAN CORPUSCULAR HGB CONC 33 g/dl (31.0-36.0); MEAN CORPUSCULAR VOLUME 79 fL (80-96); MONOCYTES # (AUTO) 0.8 /CMM (0.1-1.30); MONOCYTES % (AUTO) 12.6 % (2.0-12.0); NEUTROPHILS # (AUTO) 4.4 /CMM (1.8-8.9); NEUTROPHILS % (AUTO) 69.1 % (43.0-81.0); PLATELET COUNT (AUTO) 336 /CMM (150-450); RED BLOOD CELL COUNT(AUTO) 2.77 MIL/uL (4.5-6.0); WHITE BLOOD COUNT (AUTO) 6.4 K/uL (4.3-11.0)
[2018-07-16 08:17] LABS: BILIRUBIN,TOTAL 0.2 mg/dL (0.2-1.0); MAGNESIUM 1.8 mg/dL (1.8-2.4); PHOSPHORUS 6.9 mg/dL (2.5-4.9); POTASSIUM 4.7 mmol/L (3.5-5.1); TOTAL PROTEIN, SERUM 5.6 g/dL (6.4-8.2)
[2018-07-16] MEDS: IV NS 0.9% 1,000 ML IV PRN ×2 (08:21→17:38)
[2018-07-16] MEDS: HYDROCODONE/APAP 5/325MG 1 EACH TABLET PO PRN (08:24)
[2018-07-16 08:25] LABS: ALBUMIN 1.4 g/dL (3.4-5.0)
--- NOTE | 2018-07-16 08:45 | NUR ---
RN NOTE: CALLED AND PAGED DR. CORREA RE: THE ALBUMIN LEVEL. AWAITING FOR MD'S RESPONSE. PATIENT ATE 100% OF HIS BREAKFAST.
--- NOTE | 2018-07-16 09:38 | NUR ---
MS NURSE, Left upper arm oozing from incision area , cleaned up with normal saline and xeroform gauze applied with 4x4 gauze and wrapped with kirlix used all consulting technical director
[2018-07-16] MEDS: HYDROMORPHONE INJ 2 MG/ML DISP.SYRIN IV PRN ×2 (11:29→21:07)
[2018-07-16 16:00] VITALS: BP 136/74
--- NOTE | 2018-07-16 19:45 | NUR ---
RN CLOSING NOTE: PATIENT REMAINED ON STABLE CONDITION. FREE OF PAIN AND (R) UA PICC LINE STILL INFUSING NS @ 100ML/HR. BEDSIDE REPORT GIVEN TO PM SHIFT NURSE FOR CONTINUITY OF CARE.
[2018-07-16 20:00] VITALS: BP 136/82
--- NOTE | 2018-07-16 20:00 | NUR ---
RN INITIAL NOTE: RECEIVED PATIENT IN BED, AWAKE, ALERT AND VERBALLY RESPONSIVE. RESPIRATION EVEN AND UNLABORED SATURATING 98% ON ROOM AIR. (L) UA NOTED WITH DRY AND CLEAN KERLIX AND ELEVATED WITH PILLOW. (R) UA PICC LINE NOTED PATENT AND INTACT INFUSING WITH NS @100ML/HR. HOB ELEVATED. BED ALARMED AND LOCKED AT ALL TIMES. CALL LIGHT WITHIN REACH. WILL CONT TO MONITOR.
[2018-07-16] MEDS: VANCOMYCIN 0.75 GM in IV D5W 250 ML IV SCH (21:06)
[2018-07-17] MEDS: PIPERACILLIN /TAZOBACTAM 3.375 G in IV D5W 100 ML IV SCH ×2 (00:50→12:06)
[2018-07-17] MEDS: HYDROCODONE/APAP 5/325MG 1 EACH TABLET PO PRN (00:58)
[2018-07-17 04:00] VITALS: BP 120/98
[2018-07-17] MEDS: HYDROMORPHONE INJ 2 MG/ML DISP.SYRIN IV PRN ×3 (05:18→21:02)
--- NOTE | 2018-07-17 06:07 | NUR ---
RN CLOSING NOTE: PATIENT REMAINED ON STABLE CONDITION. (R) UA PICC LINE INFUSING NS @ 100ML/HR. BEDSIDE REPORT GIVEN TO AM SHIFT NURSE FOR CONTINUITY OF CARE.
[2018-07-17 06:31] LABS: BASOPHILS % (AUTO) 0.6 % (0.0-2.0); EOSINOPHILS % (AUTO) 3.9 % (0.0-6.0); HEMATOCRIT 25 % (39-51); HEMOGLOBIN 8.1 g/dL (13.5-17.5); LYMPHOCYTES # (AUTO) 1.2 /CMM (0.8-4.8); LYMPHOCYTES % (AUTO) 15.6 % (20.0-44.0); MEAN CORPUSCULAR HGB CONC 33 g/dl (31.0-36.0); MEAN CORPUSCULAR VOLUME 78 fL (80-96); MONOCYTES # (AUTO) 0.7 /CMM (0.1-1.30); NEUTROPHILS # (AUTO) 5.6 /CMM (1.8-8.9); NEUTROPHILS % (AUTO) 70.9 % (43.0-81.0); PLATELET COUNT (AUTO) 442 /CMM (150-450); RED BLOOD CELL COUNT(AUTO) 3.13 MIL/uL (4.5-6.0)
[2018-07-17 06:50] LABS: CALCIUM, SERUM 7.8 mg/dL (8.5-10.1); PHOSPHORUS 6.9 mg/dL (2.5-4.9)
[2018-07-17 07:32] LABS: CREATININE 8.2 mg/dL (0.6-1.3); POTASSIUM 6.2 mmol/L (3.5-5.1)
--- NOTE | 2018-07-17 07:35 | NUR ---
RN OPENING NOTE: RECEIVED PATIENT IN BED, AWAKE, ALERT AND VERBALLY RESPONSIVE. RESPIRATION EVEN AND UNLABORED SATURATING 99% ON ROOM AIR. DENIED ANY PAIN AT THIS TIME. (L) UA NOTED WITH DRY AND CLEAN KERLIX AND ELEVATED WITH PILLOW. (R) UA PICC LINE NOTED PATENT AND INTACT INFUSING WITH NS @100ML/HR. HOB ELEVATED. BED ALARMED AND LOCKED AT ALL TIMES. CALL LIGHT WITHIN REACH. NEEDS ANTICIPATED. DISCUSSED WITH PATIENT THAT THE WOUND CARE NURSE WILL BE COMING TODAY TO SEE HIS (L) UA WOUND. PATIENT UNDERSTOOD AND AGREED TO IT.
--- NOTE | 2018-07-17 07:45 | NUR ---
RN NOTE: CALLED AND PAGED DR. CORREA RE: THE CRITICAL LAB FOR POTASSIUM AND CREATININE LEVEL. AWAITING FOR MD'S RESPONSE. PATIENT REMAINED STABLE IN THE ROOM, AWAKE, ALERT AND ORIENTED X4.
[2018-07-17 08:00] VITALS: BP 165/81
--- NOTE | 2018-07-17 09:31 | NUR ---
WOUND CARE CONSULT: PT PRESENTS WITH LEFT ARM REDNESS, SWELLING AND TENDERNESS S/P I&D IN E.R. LONG PIECE OF IODOFORM PACKING REMOVED WITH SOME PURULENT DRAINAGE AND LARGE AMOUNT OF SEROSANGUINOUS DRAINAGE, NO ODOR. PT REFUSED TO HAVE WOUND MEASURED OR RE-PACKED. RECOMMEND SURGICAL CONSULT. GAUZE, ABD PAD AND KERLIX APPLIED. PT TOLERATED WELL. WILL SEE PRN. IN AGREEMENT WITH PLAN OF CARE.
[2018-07-17] MEDS: IV NS 0.9% 1,000 ML IV PRN (12:10)
[2018-07-17] MEDS: ONDANSETRON HCL/PF 4 MG/2 ML VIAL IVP PRN (13:32)
--- NOTE | 2018-07-17 13:40 | NUR ---
RN NOTE: DR. CORRAE PRESENT IN THE UNIT AND DISCUSSED WITH HER THE POTASSIUM LEVEL OF THE PATIENT SAME THE BUN AND CREATININE LEVEL. MD WITH NEW ORDER, NOTED AND CARRIED OUT. PATIENT MADE AWARE.
[2018-07-17] MEDS ORDERED: SODIUM POLYSTYRENE SULFONATE 15 G/60 ML BOTTLE PO ONE (15:00)
[2018-07-17 16:00] VITALS: BP 160/94
[2018-07-17 18:11] LABS: APPEARANCE,URINE CLEAR (CLEAR); BILIRUBIN,URINE NEGATIVE (NEGATIVE); BLOOD, URINE NEGATIVE Ery/uL (NEGATIVE); COLOR,URINE YELLOW (YELLOW); KETONES,URINE NEGATIVE (NEGATIVE); LEUKOCYTE ESTERASE ,URINE NEGATIVE (NEGATIVE); NITRITE, URINE NEGATIVE (NEGATIVE); PROTEIN,URINE 1+ mg/dl (NEGATIVE); UGLUCOSE NEGATIVE (NEGATIVE); UROBILINOGEN,URINE 0.2 EU/dL (0.2)
[2018-07-17 18:13] LABS: BACTERIA,URINE None seen /HPF (None Seen); EOSINOPHIL,URINE None Seen; RBC,URINE 0-2 /HPF (0-2); SQUAMOUS EPITHELIAL CELL,UR Few /HPF (None Seen); WBC,URINE 0-2 /HPF (0-3)
--- NOTE | 2018-07-17 18:25 | NUR ---
RN NOTE: CLARIFIED WITH DR. CORREA RE: THE PATIENT'S IV FLUID. PER TRUE SPANN THE IV FLUID NS @ 100 ML/HR. ORDER, NOTED AND CARRIED OUT. PATIENT MADE AWARE.
[2018-07-17 18:58] LABS: CREATININE, URINE 25.1 MG/DL (30.0-125.0); URINE TOTAL PROTEIN 56.3 mg/dL (0-11.9)
--- NOTE | 2018-07-17 19:42 | NUR ---
RN CLOSING NOTE: PATIENT REMAINED ON STABLE CONDITION. (R) UA PICC LINE PATENT AND INTACT. BEDSIDE REPORT GIVEN TO PM SHIFT NURSE FOR CONTINUITY OF CARE.
[2018-07-17 20:00] VITALS: BP 155/90
[2018-07-17 22:00] VITALS: BP 155/90
[2018-07-18] MEDS: PIPERACILLIN /TAZOBACTAM 3.375 G in IV D5W 100 ML IV SCH ×2 (00:52→12:13)
[2018-07-18 04:00] VITALS: BP 143/69
[2018-07-18 05:10] LABS: COMPLEMENT C3, SERUM 123 mg/dL (82-167); COMPLEMENT C4, SERUM 23 mg/dL (14-44)
[2018-07-18 05:58] LABS: CALCIUM, SERUM 7.8 mg/dL (8.5-10.1)
[2018-07-18 06:09] LABS: CREATININE 8.4 mg/dL (0.6-1.3)
--- NOTE | 2018-07-18 06:52 | NUR ---
RN NOTES ALERT AND ORIENTED, IN BED WATCHING TV. ABLE TO VERBALLY COMMUNICATE NEEDS. BREATHING EVEN AND UNLABORED. NO DISTRESS NOTED. COMPLAINED OF PAIN IN THE LEFT UPPER ARM. DILAUDID 0,25 ADMINISTERED, WITH RELIEF. HIRAM CALLED FOR ABNORMAL LABS, POTASSIUM 7.0 AND CREATININE 8.4. CALLED MD RELAYED MESSAGE. WAITING FOR REPLY.
--- NOTE | 2018-07-18 07:35 | NUR ---
MS RN OPENING NOTES RECEIVED PT FROM NIGHTSHIFT RN IN STABLE CONDITION. PT A/O X4. NO SOB OR ACUTE SIGNS OF DISTRESS NOTED. BREATHING IS EVEN AND UNLABORED. HE COMPLAINS OF AN ACHING PAIN TO HIS LEFT ELBOW RATED A 6/10. WILL ADMINISTER PRN PAIN MEDICATION. RIGHT UPPER ARM PICC LINE NOTED TO BE PATENT AND INTACT. NO REDNESS OR SIGNS OF INFILTRATION NOTED. GOOD BLOOD RETURN NOTED. BED IN LOW LOCKED POSITION, SIDE RAILS UP X2, CALL LIGHT WITHIN REACH. WILL CONTINUE TO MONITOR
[2018-07-18 08:00] VITALS: BP 148/75
[2018-07-18] MEDS ORDERED: FUROSEMIDE 100 MG/10 ML VIAL IV ONE (09:00)
[2018-07-18] MEDS ORDERED: SODIUM POLYSTYRENE SULFONATE 15 G/60 ML BOTTLE PO ONE (10:00)
[2018-07-18] MEDS: Sodium Acetate 150 MEQ in IV D5W 1,000 ML IV PRN ×2 (10:06→18:56)
[2018-07-18] MEDS: HYDROMORPHONE INJ 2 MG/ML DISP.SYRIN IV PRN ×3 (10:11→23:43)
[2018-07-18 10:17] LABS: *SPE A/G RATIO 0.5 (0.7-1.7); *SPE ALBUMIN 1.7 g/dL (2.9-4.4); *SPE ALPHA-1-GLOBULIN 0.4 g/dL (0.0-0.4); *SPE ALPHA-2-GLOBULIN 0.8 g/dL (0.4-1.0); *SPE BETA GLOBULIN 0.7 g/dL (0.7-1.3); *SPE GLOBULIN, TOTAL 3.2 g/dL (2.2-3.9); *SPE M-SPIKE Not Observed g/dL (Not Observed); *SPEGAMMA GLOBULIN 1.2 g/dL (0.4-1.8)
[2018-07-18] MEDS: SODIUM POLYSTYRENE SULFONATE 15 G/60 ML BOTTLE PO SCH ×2 (10:23→11:30)
--- NOTE | 2018-07-18 11:23 | NUR ---
Social service consult requested by KAROLINA DARSHANA Tabares for possible homelessness. Pt. is a 52 year old male who was admitted to [facility] for cellulitis. SW met with pt. bedside. Pt. is alert and oriented x 4. Pt. is pleasant and cooperative with SW during the assessment. Pt. states he rents a garage at his friend's house located at [address] [place] [address], in [facility]. Pt. states the garage has been converted to a room and is comfortable. Pt. has a history of heroin use but hasn't used for a year. Pt. denies any other drug or alcohol use. Pt. denies smoking cigarettes and marijuana. Pt. has no psychiatric history or diagnosis. Pt. will need transportation once medically cleared for discharge. No other social service needs are requested at this time. SW is available, if needed.
[2018-07-18 12:10] LABS: PTH, INTACT 79 pg/mL (15-65)
--- NOTE | 2018-07-18 12:21 | NUR ---
MS RN NOTES: KAYEXALATE ADMINISTRATION PT REFUSING SECOND KAYEXALATE ADMINISTRATION STATING "I DON'T LIKE IT. IT'S DISGUSTING, I DON'T WANT ANY MORE". RISKS AND BENEFITS EXPLAINED TO PT HOWEVER HE REMAINS FIRM IN HIS STANCE. WILL ALERT MD. PHARMACIST MADE AWARE. MEDICATION PLACED IN MED ROOM FRIDGE
[2018-07-18 12:37] LABS: CREATININE 8.7 mg/dL (0.6-1.3); POTASSIUM 6.5 mmol/L (3.5-5.1)
--- NOTE | 2018-07-18 15:24 | NUR ---
MS RN NOTES: HOSPITAL CHIEF FINANCIAL OFFICER UPDATE (LEO) HOSPITAL CHIEF FINANCIAL OFFICER MADE AWARE THAT PT REFUSED 30MG OUT OF THE 60 PRESCRIBED OF KAYEXALATE. MD ALSO MADE AWARE OF REPEAT BNP RESULT. NO NEW ORDERS AT THIS TIME
[2018-07-18 16:00] VITALS: BP 140/70
[2018-07-18] MEDS ORDERED: SODIUM POLYSTYRENE SULF. PWD 15 GM UDC PO ONE (16:30)
--- NOTE | 2018-07-18 19:05 | NUR ---
MS RN CLOSING NOTES PT REMAINS STABLE. ALL NEEDS MET DURING SHIFT AND ORDERS CARRIED OUT ACCORDINGLY .ALL DUE MEDS GIVEN. WOUND CARE RENDERED. UNABLE TO PACK WOUND WITH IODOFORM IT IS STILL CLOSED DESPITE APPLYING HEATING PAD ORDERED BY . VSS. SAFETY MEASURES REMAIN INLACE. PICC REMAINS PATENT AND INACT. WILL ENDORSE TO NIGHTSHIFT RN FOR SEAMUS
[2018-07-18 19:18] LABS: APPEARANCE,URINE CLEAR (CLEAR); BILIRUBIN,URINE NEGATIVE (NEGATIVE); BLOOD, URINE NEGATIVE Ery/uL (NEGATIVE); COLOR,URINE YELLOW (YELLOW); KETONES,URINE NEGATIVE (NEGATIVE); LEUKOCYTE ESTERASE ,URINE NEGATIVE (NEGATIVE); NITRITE, URINE NEGATIVE (NEGATIVE); PROTEIN,URINE 1+ mg/dl (NEGATIVE); UGLUCOSE NEGATIVE (NEGATIVE); UROBILINOGEN,URINE 0.2 EU/dL (0.2)
[2018-07-18 19:27] LABS: CREATININE, URINE 25.9 MG/DL (30.0-125.0); URINE TOTAL PROTEIN 53.2 mg/dL (0-11.9)
[2018-07-18 19:32] LABS: BACTERIA,URINE None seen /HPF (None Seen); RBC,URINE 0-2 /HPF (0-2); SQUAMOUS EPITHELIAL CELL,UR Rare /HPF (None Seen); WBC,URINE 0-2 /HPF (0-3)
[2018-07-18 20:00] VITALS: BP 155/89
[2018-07-18] MEDS: VANCOMYCIN 0.75 GM in IV D5W 250 ML IV SCH (20:35)
[2018-07-18 21:50] LABS: EOSINOPHIL,URINE None Seen
[2018-07-18] MEDS: ONDANSETRON HCL/PF 4 MG/2 ML VIAL IVP PRN (23:17)
[2018-07-19] MEDS: PIPERACILLIN /TAZOBACTAM 3.375 G in IV D5W 100 ML IV SCH ×2 (00:53→12:20)
[2018-07-19 04:00] VITALS: BP 154/84
[2018-07-19] MEDS: HYDROMORPHONE INJ 2 MG/ML DISP.SYRIN IV PRN ×2 (04:31→12:33)
[2018-07-19 06:58] LABS: BASOPHILS % (AUTO) 0.4 % (0.0-2.0); EOSINOPHILS % (AUTO) 2.4 % (0.0-6.0); HEMATOCRIT 25 % (39-51); HEMOGLOBIN 8.4 g/dL (13.5-17.5); LYMPHOCYTES # (AUTO) 0.9 /CMM (0.8-4.8); LYMPHOCYTES % (AUTO) 10.2 % (20.0-44.0); MEAN CORPUSCULAR HGB CONC 34 g/dl (31.0-36.0); MEAN CORPUSCULAR VOLUME 77 fL (80-96); MONOCYTES # (AUTO) 0.4 /CMM (0.1-1.30); MONOCYTES % (AUTO) 4.8 % (2.0-12.0); NEUTROPHILS # (AUTO) 6.9 /CMM (1.8-8.9); NEUTROPHILS % (AUTO) 82.2 % (43.0-81.0); PLATELET COUNT (AUTO) 443 /CMM (150-450); RED BLOOD CELL COUNT(AUTO) 3.21 MIL/uL (4.5-6.0); WHITE BLOOD COUNT (AUTO) 8.3 K/uL (4.3-11.0)
--- NOTE | 2018-07-19 07:00 | NUR ---
MS RN OPENING NOTES RECEIVED PT FROM ENVIRONMENTAL LABORATORY TECHNICIAN RN IN STABLE CONDITION. PT A/O X4. NO SOB OR ACUTE SIGNS OF DISTRESS NOTED. BREATHING IS EVEN AND UNLABORED. RIGHT UPPER ARM PICC LINE NOTED TO BE PATENT AND INTACT. NO REDNESS OR SIGNS OF INFILTRATION NOTED. GOOD BLOOD RETURN NOTED. BED IN LOW LOCKED POSITION, SIDE RAILS UP X2, CALL LIGHT WITHIN REACH. WILL CONTINUE TO MONITOR
[2018-07-19 07:21] LABS: CALCIUM, SERUM 8.1 mg/dL (8.5-10.1)
[2018-07-19 07:26] LABS: POTASSIUM 6.5 mmol/L (3.5-5.1)
[2018-07-19 07:27] LABS: CREATININE 8.8 mg/dL (0.6-1.3)
[2018-07-19 08:00] VITALS: BP 154/95
--- NOTE | 2018-07-19 12:00 | NUR ---
MS RN NOTES AIDEE (RAYMUNDO) REPORTED PT REQUESTING 1 MORE NIGHT STAY.
[2018-07-19] MEDS ORDERED: FUROSEMIDE 100 MG/10 ML VIAL IV ONE (13:00)
[2018-07-19] MEDS ORDERED: SODIUM POLYSTYRENE SULFONATE 15 G/60 ML BOTTLE PO ONE (13:00)
[2018-07-19] MEDS: CEFTRIAXONE 1 G in IV D5W 50 ML IV SCH (14:49)
[2018-07-19 16:00] VITALS: BP 156/90
[2018-07-19 20:00] VITALS: BP 154/91
--- NOTE | 2018-07-19 20:00 | NUR ---
RECEIVED PATIENT SITTING IN BED, WATCHING TV. VSS, AFEBRILE, NO DISTRESS NOTED, DENIES PAIN PHYSICAL ASSESSMENT DONE. EDUCATION/INSTRUCTIONS GIVEN , VERBALIZED UNDERSTANDING. CALL LIGHT WITHIN REACH INSTRUCTED TO CALL FOR ASSISTANCE. CONTINUE TO MONITOR
[2018-07-19] MEDS: Sodium Acetate 150 MEQ in IV D5W 1,000 ML IV PRN (20:07)
[2018-07-19 20:19] VITALS: BP 154/91
[2018-07-20] MEDS: HYDROMORPHONE INJ 2 MG/ML DISP.SYRIN IV PRN ×4 (00:39→18:27)
--- NOTE | 2018-07-20 00:40 | NUR ---
PATIENT C/O LEFT ARM PAIN - DILAUDID GIVEN PRN. CONTINUE TO MONITOR
[2018-07-20 04:00] VITALS: BP 128/84
[2018-07-20 04:54] VITALS: BP 128/84
[2018-07-20] MEDS: Sodium Acetate 150 MEQ in IV D5W 1,000 ML IV PRN ×2 (05:41→18:16)
[2018-07-20 06:44] LABS: CALCIUM, SERUM 7.1 mg/dL (8.5-10.1); POTASSIUM 4.9 mmol/L (3.5-5.1)
[2018-07-20 06:45] LABS: CREATININE 8.1 mg/dL (0.6-1.3)
--- NOTE | 2018-07-20 07:00 | NUR ---
MS RN NOTES RECEIVED REPORT FROM PM SHIFT NURSE. PT IN BED, AROUSABLE. A/OX3. L ARM WOUND DRESSING INTACT. KATIE MIDLINE NOTED. PT HAS URINAL AT BEDSIDE. NOT COMPLAINING OF PAIN AT THIS TIME. BED IN LOCKED/LOW POSITION. CALL LIGHT W/IN REACH. WILL CONT TO MONITOR.
[2018-07-20 08:00] VITALS: BP 153/94
[2018-07-20] MEDS: CEFTRIAXONE 1 G in IV D5W 50 ML IV SCH (14:48)
[2018-07-20 16:00] VITALS: BP 159/85
--- NOTE | 2018-07-20 19:15 | NUR ---
MS RN NOTES ENDORSED PT TO PM SHIFT FOR SEAMUS. ALL NEEDS ATTENDED TO. PT NOT IN DISTRESS. CALL LIGHT IN REACH.
[2018-07-20 20:00] VITALS: BP 153/87
[2018-07-21] MEDS: HYDROMORPHONE INJ 2 MG/ML DISP.SYRIN IV PRN ×5 (02:16→23:58)
[2018-07-21 04:00] VITALS: BP_SYST 147; BP_SYST 163; BP_DIAS 72; BP_DIAS 94
[2018-07-21] MEDS: Sodium Acetate 150 MEQ in IV D5W 1,000 ML IV PRN ×2 (05:09→17:00)
[2018-07-21 06:37] LABS: BASOPHILS % (AUTO) 0.4 % (0.0-2.0); EOSINOPHILS % (AUTO) 3.1 % (0.0-6.0); HEMATOCRIT 25 % (39-51); HEMOGLOBIN 8.2 g/dL (13.5-17.5); LYMPHOCYTES # (AUTO) 0.9 /CMM (0.8-4.8); LYMPHOCYTES % (AUTO) 11.9 % (20.0-44.0); MEAN CORPUSCULAR HGB CONC 33 g/dl (31.0-36.0); MEAN CORPUSCULAR VOLUME 77 fL (80-96); MONOCYTES # (AUTO) 0.7 /CMM (0.1-1.30); MONOCYTES % (AUTO) 8.9 % (2.0-12.0); NEUTROPHILS # (AUTO) 5.6 /CMM (1.8-8.9); NEUTROPHILS % (AUTO) 75.7 % (43.0-81.0); PLATELET COUNT (AUTO) 377 /CMM (150-450); RED BLOOD CELL COUNT(AUTO) 3.19 MIL/uL (4.5-6.0); WHITE BLOOD COUNT (AUTO) 7.4 K/uL (4.3-11.0)
[2018-07-21 08:00] VITALS: BP_SYST 153; BP_SYST 161; BP_DIAS 86; BP_DIAS 87
[2018-07-21 09:12] LABS: CALCIUM, SERUM 7.9 mg/dL (8.5-10.1); POTASSIUM 5.4 mmol/L (3.5-5.1)
[2018-07-21 09:35] LABS: CREATININE 9.2 mg/dL (0.6-1.3)
[2018-07-21] MEDS: CEFTRIAXONE 1 G in IV D5W 50 ML IV SCH (13:48)
--- NOTE | 2018-07-21 13:55 | NUR ---
MS RN NOTE Rocephin and Dilaudid given as ordered for 01/03 LUE pain. S/E by Jared TREVIÑO and Dr. Flores, discussed re: the patient re: the HD, patient agreed for now but does not want to sign consent yet, she will talk to his mother and he wanted to have HD cath placed tomorrow in case.
[2018-07-21] MEDS ORDERED: FUROSEMIDE 40 MG/4 ML VIAL IV ONE (15:00)
[2018-07-21 16:00] VITALS: BP 151/78
--- NOTE | 2018-07-21 18:11 | NUR ---
RN NOTE Dr. Stallworth called and gave order to get consent for HD cath placement and NPO post midnight. Informed patient but still does not want to sign the procedure at thyis time, he said he will think about tonight and told him to inform Noc nurse, will endorse. MD aware patient still has not signed procedure and informed MD he is still thinking of it.
[2018-07-21 20:00] VITALS: BP 161/95
[2018-07-21] MEDS: HYDROCODONE/APAP 5/325MG 1 EACH TABLET PO PRN (21:25)
[2018-07-22 04:00] VITALS: BP 164/85
[2018-07-22] MEDS: HYDROMORPHONE INJ 2 MG/ML DISP.SYRIN IV PRN (04:40)
[2018-07-22] MEDS: Sodium Acetate 150 MEQ in IV D5W 1,000 ML IV PRN (05:26)
[2018-07-22 06:30] LABS: BASOPHILS % (AUTO) 0.5 % (0.0-2.0); EOSINOPHILS % (AUTO) 2.2 % (0.0-6.0); HEMATOCRIT 25 % (39-51); HEMOGLOBIN 8.3 g/dL (13.5-17.5); LYMPHOCYTES # (AUTO) 1.1 /CMM (0.8-4.8); LYMPHOCYTES % (AUTO) 13.9 % (20.0-44.0); MEAN CORPUSCULAR HGB CONC 33 g/dl (31.0-36.0); MEAN CORPUSCULAR VOLUME 78 fL (80-96); MONOCYTES # (AUTO) 0.6 /CMM (0.1-1.30); NEUTROPHILS % (AUTO) 75.4 % (43.0-81.0); PLATELET COUNT (AUTO) 387 /CMM (150-450); RED BLOOD CELL COUNT(AUTO) 3.21 MIL/uL (4.5-6.0)
[2018-07-22 06:47] LABS: CALCIUM, SERUM 7.8 mg/dL (8.5-10.1); POTASSIUM 5.7 mmol/L (3.5-5.1)
[2018-07-22 06:48] LABS: CREATININE 9.1 mg/dL (0.6-1.3)
--- NOTE | 2018-07-22 07:00 | NUR ---
RN NOTES GOT A CALL FROM SURGERY ABOUT PATIENT BEING READY FOR HD CATH PLACEMENT AND HAS BEEN INFORMED THAT PATIENT DIDN'T ROBINA CONSENT FORMS FOR PROCEDURE AND SAID " NO ONE CAME TO TALK TO ME ABOUT THIS PROCEDURE AND I HAVE NO IDEA WHY I AM HAVING HD CATH PLACEMENT". SURGERY SAID THAT ONCE DOCTOR COMES HE WILL COME AND TALK TO THE PATIENT. AM LEAD AUDITOR SHARRI AND PM LEAD AUDITOR OLAYINKA NOTIFIED. CALLED MD NEVES WITH NO ANSWER. WILL ENDORSE TO THE AM RN FOR OFFICE MACHINE TECHNICIAN.
--- NOTE | 2018-07-22 07:00 | NUR ---
MS RN NOTES RECEIVED PT IN BED, A/OX3. PT SCHEDULED FOR PERMACATH PLACEMENT BUT IS REFUSING SURGERY AT THIS TIME. ON ROOM AIR SAT WNL. IV SITE/PATENT/FLUSHED WITH NO S/SX OF INFECTION. LUNG SOUNDS CLEAR; DIMINISHED LUNG BASES. HR REGULAR. BS ACTIVE ALL QUADS. URINAL AT BS WITH CLEAR YELLOW URINE. BED IN LOCKED/LOW POSITION. WILL FOLLOW UP WITH RE: SURGERY.
[2018-07-22] MEDS ORDERED: ANESTHESIA TRAY IN PYXIS 1 EA TRAY MC ONE (07:02)
--- NOTE | 2018-07-22 07:30 | NUR ---
MS RN NOTES DR WALLACE ROUNDING WITH PATIENT. PT REFUSED SURGERY AGAINST ADVICE OF . PT UNDERSTANDS RISKS OF NOT HAVING DIALYSIS. WILL FOLLOW UP WITH OUTBOUND TELEMARKETING REPRESENTATIVE.
[2018-07-22 08:00] VITALS: BP 136/84
--- NOTE | 2018-07-22 08:00 | NUR ---
MS RN NOTES NOTIFIED DR TRUJILLO OF PT'S REFUSAL TO PERMACATH PLACEMENT.
--- NOTE | 2018-07-22 09:00 | NUR ---
MS RN NOTES NOTIFIED LEO CHOPRA OF PT'S REFUSAL FOR SURGERY. PT STATED, "I DONT WANT SURGERY."
--- NOTE | 2018-07-22 09:45 | NUR ---
MS RN NOTES PT WANTS TO LEAVE AMA PT DOES NOT AGREE WITH TREATMENT OPTION. AMA FORM SIGNED.
--- NOTE | 2018-07-22 10:14 | NUR ---
MS RN NOTES PT REFUSED PIC OF WOUNDS
--- NOTE | 2018-07-22 11:49 | NUR ---
MS RN NOTES MIDLINE REMOVED. PT WALKED OUT WITH BELONGINGS. REFUSED WHEEL CHAIR. DISCHARGE PACKET IN HAND. ALL NEEDS ATTENDED TO.
== END 2018-07-22 11:45 | disposition left against medical advice (07) | DRG 383 ==
LOC: ER 17:32 → MEDSG1 20:58
PROVIDERS: ADMIT Nurse Practitioner Acute Care; ATTEND Nurse Practitioner Acute Care
PROC: 05H533Z Insertion of Infusion Device into Right Subclavian Vein, Percutaneous Approach (ICD-10-PCS; principal; 2018-07-14)
PROC: 0H9CXZZ Drainage of Left Upper Arm Skin, External Approach (ICD-10-PCS; principal; 2018-07-14)
DX: L02.414 Cutaneous abscess of left upper limb (principal); N17.0 Acute kidney failure with tubular necrosis; E43 Unspecified severe protein-calorie malnutrition; E87.2 Acidosis; E87.1 Hypo-osmolality and hyponatremia; D50.9 Iron deficiency anemia, unspecified; F19.11 Other psychoactive substance abuse, in remission; E86.1 Hypovolemia; E88.09 Other disorders of plasma-protein metabolism, not elsewhere classified; Z93.3 Colostomy status; Z68.23 Body mass index [BMI] 23.0-23.9, adult; N18.9 Chronic kidney disease, unspecified; Z91.15 Patient's noncompliance with renal dialysis; D72.829 Elevated white blood cell count, unspecified; L03.114 Cellulitis of left upper limb; E87.5 Hyperkalemia; N18.6 End stage renal disease
CPT/HCPCS: 36415; 71045-TC; 76770-TC; 80048-TC; 80053-TC; 80061-TC; 80074; 80076-TC; 80202-TC; 81000-TC; 82550-TC; 82570-TC; 82728-TC; 83540-TC; 83605-TC; 83735-TC; 83970; 84100-TC; 84155; 84155-TC; 84165; 84300-TC; 84443-TC; 85025-TC; 85610-TC; 85652-TC; 85730-TC; 86704; 86705; 86706; 86803; 86850-TC; 87040-TC; 87070-TC; 87081-TC; 87186-TC; 87340; 87806; A6253; A6402; A6403; A6407; G0378; J0696; J1170; J1940; J2270; J2405; J2543; J3370; J3490; J7030; J7060; J7070

== ENCOUNTER 2019-05-10 08:01 | Inpatient (IN) | payer MEDICAID, OTHER ==
[~2019-05-10] VITALS: Ht 185.4 cm; Wt 79.4 kg
--- NOTE | 2019-05-10 08:07 | NUR ---
PT BIB SELF C/O NAUSEA/VOMITING, PT IS AAOX4, NOT IN RESPIRATORY DISTRESS, HOOKED TO MONITOR, KEPT RESTED AND COMFORTABLE,WILL CONTINUE TO MONITOR.
[2019-05-10] MEDS ORDERED: IV NS 0.9% 1,000 ML BAG IV ONE (08:30)
[2019-05-10] MEDS ORDERED: ONDANSETRON HCL/PF 4 MG/2 ML VIAL IVP ONE (08:30)
[2019-05-10] MEDS ORDERED: ONDANSETRON HCL/PF 4 MG/2 ML VIAL ONE (08:34)
--- NOTE | 2019-05-10 08:39 | NUR ---
SEEN AND EXAMINED BY .
--- NOTE | 2019-05-10 08:41 | NUR ---
ER PHLEB AT BEDSIDE FOR BLOOD DRAW.
[2019-05-10 09:02] LABS: BASOPHILS # (AUTO) 0.1 /CMM (0.0-0.2); BASOPHILS % (AUTO) 0.8 % (0.0-2.0); EOSINOPHILS % (AUTO) 2.3 % (0.0-6.0); HEMATOCRIT 22 % (39-51); HEMOGLOBIN 7.3 g/dL (13.5-17.5); LYMPHOCYTES # (AUTO) 0.9 /CMM (0.8-4.8); LYMPHOCYTES % (AUTO) 11.5 % (20.0-44.0); MEAN CORPUSCULAR HGB CONC 34 g/dl (31.0-36.0); MEAN CORPUSCULAR VOLUME 82 fL (80-96); MONOCYTES # (AUTO) 0.4 /CMM (0.1-1.30); MONOCYTES % (AUTO) 5.2 % (2.0-12.0); NEUTROPHILS # (AUTO) 6.1 /CMM (1.8-8.9); NEUTROPHILS % (AUTO) 80.2 % (43.0-81.0); PLATELET COUNT (AUTO) 167 /CMM (150-450); RED BLOOD CELL COUNT(AUTO) 2.65 MIL/uL (4.5-6.0); WHITE BLOOD COUNT (AUTO) 7.7 K/uL (4.3-11.0)
[2019-05-10 09:14] LABS: ALBUMIN 2.8 g/dL (3.4-5.0); BILIRUBIN,DIRECT 0.1 mg/dL (0.0-0.2); BILIRUBIN,TOTAL 0.3 mg/dL (0.2-1.0); CALCIUM, SERUM 7.5 mg/dL (8.5-10.1); TOTAL PROTEIN, SERUM 8.3 g/dL (6.4-8.2)
[2019-05-10 09:16] LABS: CREATININE 19.6 mg/dL (0.6-1.3)
--- NOTE | 2019-05-10 10:05 | NUR ---
CALLED FOR MS BED -- ANABELLE
--- NOTE | 2019-05-10 10:08 | NUR ---
MOVE PACKET TURNED TO ADMITTING WITH LABS.
--- NOTE | 2019-05-10 10:27 | NUR ---
ROOM GIVEN 115-1
--- NOTE | 2019-05-10 11:45 | NUR ---
CALLED [facility] FIRST TIME 1113 SECOND TIME 1144
--- NOTE | 2019-05-10 11:53 | NUR ---
REPORT GIVEN TO DANIELA YAÑEZ FOR SEAMUS.
[2019-05-10 13:00] VITALS: BP 152/78
[2019-05-10] MEDS ORDERED: ACETAMINOPHEN 325 MG TABLET PO PRN (13:30)
[2019-05-10] MEDS ORDERED: MAGNESIUM HYDROXIDE 30 ML UDC PO PRN (13:30)
[2019-05-10] MEDS ORDERED: Z GUARD REMEDY 2 OZ OINT TP PRN (13:30)
[2019-05-10] MEDS ORDERED: MAG HYDROX/AL HYDROX/SIMETH 30 ML UDC PO PRN (13:30)
[2019-05-10] MEDS: ONDANSETRON HCL/PF 4 MG/2 ML VIAL IVP PRN (15:54)
[2019-05-10 16:24] VITALS: BP 152/78
[2019-05-10 17:00] VITALS: BP_SYST 148; BP_SYST 152; BP_DIAS 78; BP_DIAS 80
[2019-05-10 20:00] VITALS: BP 158/94
[2019-05-10] MEDS: HYDROCODONE/APAP 5/325MG 1 EACH TABLET PO PRN (21:21)
--- NOTE | 2019-05-10 21:47 | NUR ---
18 G MIDLINE PLACED BY MONIQUE
[2019-05-11] VITALS (9 sets, daily range): BP systolic 145–215; BP diastolic 87–105
[2019-05-11] MEDS: ONDANSETRON HCL/PF 4 MG/2 ML VIAL IVP PRN (04:18)
[2019-05-11] MEDS: HYDROCODONE/APAP 5/325MG 1 EACH TABLET PO PRN ×3 (04:19→22:42)
[2019-05-11 05:07] LABS: BASOPHILS # (AUTO) 0.1 /CMM (0.0-0.2); BASOPHILS % (AUTO) 0.7 % (0.0-2.0); EOSINOPHILS % (AUTO) 2.7 % (0.0-6.0); LYMPHOCYTES # (AUTO) 1.4 /CMM (0.8-4.8); LYMPHOCYTES % (AUTO) 20.3 % (20.0-44.0); MEAN CORPUSCULAR HGB CONC 34 g/dl (31.0-36.0); MEAN CORPUSCULAR VOLUME 82 fL (80-96); MONOCYTES # (AUTO) 0.6 /CMM (0.1-1.30); MONOCYTES % (AUTO) 8.5 % (2.0-12.0); NEUTROPHILS # (AUTO) 4.7 /CMM (1.8-8.9); NEUTROPHILS % (AUTO) 67.8 % (43.0-81.0); PLATELET COUNT (AUTO) 144 /CMM (150-450); RED BLOOD CELL COUNT(AUTO) 2.43 MIL/uL (4.5-6.0); WHITE BLOOD COUNT (AUTO) 6.9 K/uL (4.3-11.0)
[2019-05-11 05:28] LABS: HEMATOCRIT 20 % (39-51); HEMOGLOBIN 6.7 g/dL (13.5-17.5)
[2019-05-11 05:39] LABS: ALBUMIN 2.6 g/dL (3.4-5.0); BILIRUBIN,TOTAL 0.2 mg/dL (0.2-1.0); CALCIUM, SERUM 6.5 mg/dL (8.5-10.1); MAGNESIUM 1.6 mg/dL (1.8-2.4); POTASSIUM 5.7 mmol/L (3.5-5.1); TOTAL PROTEIN, SERUM 7.5 g/dL (6.4-8.2)
[2019-05-11 05:42] LABS: THYROID STIMULATING HORMONE 7.098 uIU/mL (0.358-3.74)
[2019-05-11 05:43] LABS: CREATININE 18.4 mg/dL (0.6-1.3)
[2019-05-11 05:44] LABS: PHOSPHORUS 10.4 mg/dL (2.5-4.9)
--- NOTE | 2019-05-11 06:46 | NUR ---
ENDING NOTES: AWARE OF SCHEDULED PROCEDURE AND NEEDING TO BE NPO AT MIDNIGHT. CONSENT SIGNED FOR PERM CATH PLACEMENT BY MD CARBAJAL . MIDLINE PLACED LAST NIGHT BY MONIQUE LEFT ARM. BLOOD DRAWN THIS AM AT 066 FOR TYPE AND SCREEN AND THEN MD ROSA WANTS ONE UNIT TO BE INFUSED. 02 PLACED 2LITER D/T HB 6.7 AND C/O CAR MEDIVATED WITH NORCO TABLET 1 PATIENT FELL ASLEEP
--- NOTE | 2019-05-11 07:00 | NUR ---
MS SUAREZ INIAL NOTES PATIENT RECEIVED BY PM SHIFT , A/O X4 PATIENT IS ON 2L OXYGEN SATURATING AT 100%. PATIENT IS SATURATING WELL. PATIENT COMPLAINING OF HEADACHE. 8/10 PAIN LEVEL PATIENT IS AWARE OF PROCEDURES WELL SURGERY. PATIENT MID LINE IS INTACT AND FLUSHING WELL WITH NO SIGNS OF INFECTION. PATIENT IS AWARE OF BLOOD TRANSFUSION AT 1 UNIT . PATIENT HB 6.7. PATIENTS SKIN IS INTACT. AMBULATORY. BED ON LOWEST POSITION, SAFETY MAINTAINED. CALL LIGHT WITH IN REACH.
[2019-05-11 07:32] LABS: EOSINOPHILS % (MANUAL) 2 % (0-4); LYMPHOCYTES % (MANUAL) 21 % (16-48); MONOCYTES % (MANUAL) 6 % (0-11.0); NEUTROPHILS % (MANUAL) 71 (42-76)
[2019-05-11] MEDS: AMLODIPINE BESYLATE 5 MG TABLET PO SCH (12:15)
--- NOTE | 2019-05-11 13:07 | NUR ---
RN NOTES MS PATIENT BP 198/98 TEMP: 98 , PULSE 62 , PAIN 10/10 PATIENT COMPLAINING OF SEVERE MED ACHE CURRENTLY BLOOD TRANS FUSING 60 ML PATIENT WAS GIVEN NORVAC. NOTIFIED CHASE FATOUMATA ABOUT PATIENT CONDITION . TOLD TO CONTINUE BLOOD AT 120 ML.
[2019-05-11] MEDS ORDERED: ANESTHESIA TRAY IN PYXIS 1 EA TRAY MC ONE (13:42)
[2019-05-11] MEDS ORDERED: LIDOCAINE HCL/PF 1% 30 ML SDV ONE (13:42)
[2019-05-11] MEDS ORDERED: HEPARIN SODIUM, PORCINE 1,000 UNIT/ML VIAL ONE (13:42)
[2019-05-11] MEDS ORDERED: CLONIDINE HCL 0.1 MG TABLET PO PRN (14:00)
--- NOTE | 2019-05-11 14:30 | NUR ---
MS RN NOTES PATIENT LEFT TO SURGERY FOR (R) PERMA CATH.
--- NOTE | 2019-05-11 19:10 | NUR ---
MS RN OPENING NOTES: RECEIVED PATIENT RESTING IN BED, ON HEMODIALYSIS ON GOING. A/O X4. NO COMPLAIN OF PAIN. HD VIA RIGHT CHEST PERMA CATH.
--- NOTE | 2019-05-11 19:30 | NUR ---
MS RN CLOSING NOTES PATIENT ENDORSED TO PM SHIFT. PATIENT IS CURRENTLY ON HD. PATIENT IS ON 2L O2 AND SATURATING WELL. PATIENT SHOWS NO SIGNS OF DISTRESS. PATIENT IS AWARE OF TREATMENT PLAN WELL DISEASE PROCESS. PATIENT BED AT LOWEST POSITION , SAFETY MAINTAINED, CALL LIGHT WITH IN REACH .
--- NOTE | 2019-05-11 22:28 | NUR ---
Met with patient, he is alert and oriented. States he is currently homeless and has very limited resources. He is ambulatory and independent with adl's. Hx of ESRD and non-compliant. He was started on his 1st hemodialysis today and might need outpt hemodialysis set up . Discuss dc planning - patient is requesting placement when discharge. Addendum: 05/11/19 at 2229 by CHRIS WILKINSON RN Amended: Links added.
--- NOTE | 2019-05-12 01:27 | NUR ---
VOMITTED. ZOFRAN 4MG IV GIVEN.
[2019-05-12] MEDS: ONDANSETRON HCL/PF 4 MG/2 ML VIAL IVP PRN ×3 (01:31→21:16)
--- NOTE | 2019-05-12 01:50 | NUR ---
PATIENT INSTRUCTED TO COLLECT URINE SAMPLE. STERILE CONTAINER PROVIDED,PATIENT VERBALIZED UNDERSTANDING.
[2019-05-12 04:00] VITALS: BP 139/79
--- NOTE | 2019-05-12 05:00 | NUR ---
MS RN CLOSING NOTES: PATIENT IS RESTING COMFORTABLY IN BED. COMPLAINED OF HEADACHE, MEDICATED WITH NORCO 5/325 MG PO. NO ACUTE EVENTS OVERNIGHT. URINE SAMPLE COLLECTED. CALL LIGHT WITHIN REACH. BED IN LOWEST AND LOCKED POSITION.
[2019-05-12] MEDS: HYDROCODONE/APAP 5/325MG 1 EACH TABLET PO PRN (06:39)
[2019-05-12 06:59] LABS: BASOPHILS % (AUTO) 0.5 % (0.0-2.0); EOSINOPHILS % (AUTO) 0.7 % (0.0-6.0); HEMOGLOBIN 7.1 g/dL (13.5-17.5); LYMPHOCYTES # (AUTO) 0.6 /CMM (0.8-4.8); LYMPHOCYTES % (AUTO) 9.7 % (20.0-44.0); MEAN CORPUSCULAR HGB CONC 35 g/dl (31.0-36.0); MEAN CORPUSCULAR VOLUME 79 fL (80-96); MONOCYTES # (AUTO) 0.3 /CMM (0.1-1.30); MONOCYTES % (AUTO) 5.9 % (2.0-12.0); NEUTROPHILS # (AUTO) 4.8 /CMM (1.8-8.9); NEUTROPHILS % (AUTO) 83.2 % (43.0-81.0); PLATELET COUNT (AUTO) 141 /CMM (150-450); RED BLOOD CELL COUNT(AUTO) 2.56 MIL/uL (4.5-6.0); WHITE BLOOD COUNT (AUTO) 5.8 K/uL (4.3-11.0)
[2019-05-12 07:06] LABS: COMPLEMENT C3, SERUM 104 mg/dL (82-167); COMPLEMENT C4, SERUM 32 mg/dL (14-44)
[2019-05-12 07:17] LABS: ALBUMIN 2.5 g/dL (3.4-5.0); BILIRUBIN,TOTAL 0.3 mg/dL (0.2-1.0); CALCIUM, SERUM 8.1 mg/dL (8.5-10.1); MAGNESIUM 1.7 mg/dL (1.8-2.4); POTASSIUM 4.5 mmol/L (3.5-5.1); TOTAL PROTEIN, SERUM 7.2 g/dL (6.4-8.2)
[2019-05-12 07:18] LABS: HEMATOCRIT 20 % (39-51)
[2019-05-12 07:22] LABS: CREATININE, URINE 31.4 MG/DL (30.0-125.0); URINE TOTAL PROTEIN 443.1 mg/dL (0-11.9)
[2019-05-12 07:38] LABS: CREATININE 11.3 mg/dL (0.6-1.3)
--- NOTE | 2019-05-12 07:38 | NUR ---
RECEIVED A CRITICAL LAB HEMATOCRIT= 20, ENDORSED TO DANIELA AN.
--- NOTE | 2019-05-12 07:58 | NUR ---
CRITICAL RESULT OF PHOS 80. RECIEVED FROM PROGRAM MANAGER TRANSPORTATION SUNNY. TRENDING LOW. WILL GRETEL THE ATTENDING
[2019-05-12 08:00] VITALS: BP 156/83
--- NOTE | 2019-05-12 08:37 | NUR ---
COMPLAINING OF NAUSEA AND STILL HAS HEADACHE AND CLAIMS NORCO DID NOT RELIEVE THE PAIN .WILL CALL THE PHYSICIAN TO INFORM
[2019-05-12] MEDS: AMLODIPINE BESYLATE 5 MG TABLET PO SCH (08:41)
--- NOTE | 2019-05-12 08:51 | NUR ---
CHARGE NURSE INMFORMED THAT THE PATIENT HAS CRITICAL PHOISPHOROUS LEVE, TALKED TO THE HD NURSE AND WILL HAVE HD TODAY IN THE AFTERNOON
[2019-05-12] MEDS ORDERED: AMLODIPINE BESYLATE 5 MG TABLET PO SCH (09:00)
[2019-05-12 11:35] LABS: EOSINOPHIL,URINE None Seen
[2019-05-12 11:47] LABS: APPEARANCE,URINE CLEAR (CLEAR); BILIRUBIN,URINE NEGATIVE (NEGATIVE); BLOOD, URINE SMALL Ery/uL (NEGATIVE); KETONES,URINE NEGATIVE (NEGATIVE); LEUKOCYTE ESTERASE ,URINE NEGATIVE (NEGATIVE); NITRITE, URINE NEGATIVE (NEGATIVE); PROTEIN,URINE >=300 mg/dl (NEGATIVE); UGLUCOSE 250 MG/DL mg/dL (NEGATIVE); UROBILINOGEN,URINE 0.2 EU/dL (0.2)
[2019-05-12 11:49] LABS: COLOR,URINE STRAW (YELLOW)
--- NOTE | 2019-05-12 11:49 | NUR ---
charge nurse [facility] that the patient needs wound care consult as there are wounds that are not recorded. will take pictures about it and will needs wound care reaasessements and orders, Addendum: 05/12/19 at 1244 by JUVE NARANJO RN error this note is not for this patient, clarification of notes
[2019-05-12 11:53] LABS: BACTERIA,URINE None seen /HPF (None Seen); RBC,URINE 0-2 /HPF (0-2); SQUAMOUS EPITHELIAL CELL,UR None Seen /HPF (None Seen); WBC,URINE NONE SEEN /HPF (0-3)
[2019-05-12 12:06] LABS: PTH, INTACT 290 pg/mL (15-65)
--- NOTE | 2019-05-12 12:45 | NUR ---
Dr Spencer paged for the critical value od phosphorous and hct,
--- NOTE | 2019-05-12 13:32 | NUR ---
Dr Spencer in and informed about the phosphorous level and the headache but patient is curretly asleep with no further complaints,
[2019-05-12 15:06] LABS: *ANA ANTI-CENTROMERE B AB <0.2 AI (0.0-0.9); *ANA ANTI-DNA(DS) AB, QN 14 IU/mL (0-9); *ANA ANTI-JO-1 <0.2 AI (0.0-0.9); *ANA ANTICHROMATIN ANTIBODY <0.2 AI (0.0-0.9); *ANA RNP ANTIBODIES <0.2 AI (0.0-0.9); *ANA SJOGREN'S ANTI-SS-A <0.2 AI (0.0-0.9); *ANA SJOGREN'S ANTI-SS-B <0.2 AI (0.0-0.9); *ANAANTI-SCLERODERMA-70 AB 0.5 AI (0.0-0.9); *ANASMITH AB <0.2 AI (0.0-0.9)
[2019-05-12] MEDS: MORPHINE SULFATE INJ 2 MG/ML DISP.SYRIN IV PRN ×2 (15:12→22:59)
--- NOTE | 2019-05-12 15:17 | NUR ---
with complainmts of headache 04/05 DR Spencer with orders and carried out.morphine dose as ordered
[2019-05-12 15:18] VITALS: BP 152/76
--- NOTE | 2019-05-12 15:21 | NUR ---
vein mapping of the bilateral arms for av shunt access insertion completed and patient tolerated the procedure.
[2019-05-12 16:00] VITALS: BP 156/85
--- NOTE | 2019-05-12 19:00 | NUR ---
RN medsurrao opening notes Received Pt from morning nurse. Pt is alert and orientedX4. Pt is resting in bed comfortably. Pt will have dialysis today. Respiration is normal in room air. No SOB. No nausea or vomiting. No S/S of distress noted. TROY midline is clean, intact and patent. R chest permacath is clean, intact and patent. Safety precautions is maintained. Bed at low position, brakes locked, side rails upX2 and call light is within reach. Will continue to monitor.
--- NOTE | 2019-05-12 19:10 | NUR ---
venous mapping ot the bilateral lower extremties completed.
--- NOTE | 2019-05-12 19:50 | NUR ---
DANIELA nye notes Pt is having a dialysis. Will continue to monitor
[2019-05-12 20:00] VITALS: BP 162/98
--- NOTE | 2019-05-12 21:16 | NUR ---
RN hannah notes Pt is complaining of nausea. Administered Zofran Inj 4 mg/2 ml IV push as ordered for nausea. Instructed to call. Safety precautions is maintained. Will continue to monitor.
--- NOTE | 2019-05-12 22:00 | NUR ---
DANIELA young notes Dialysis is finished. Pt tolerated well. VS is stable. Output is 500 ml. Will continue to monitor.
[2019-05-12 22:55] VITALS: BP 163/95
--- NOTE | 2019-05-12 23:06 | NUR ---
RN medsurg notes Pt is complaining of pain in his head and requesting pain meds morphine. Administered Morphine sulfate 2 mg/1 ml as ordered for pain in head 8/10 on pain scale. Instructed to call. Safety precautions is maintained. Will continue to monitor. VS as follows: Bp 163/95, Pulse 69, Temp 98.6, O2 sat is 98% in room air and respiration is 20.
[2019-05-13 04:00] VITALS: BP 156/91
[2019-05-13] MEDS: MORPHINE SULFATE INJ 2 MG/ML DISP.SYRIN IV PRN ×3 (05:54→18:19)
--- NOTE | 2019-05-13 06:50 | NUR ---
RN medsurg closing notes Pt is alert and orientedX4. Pt is resting in bed comfortably. Awaken easily. Respiration is normal in room air. No SOB. No nausea or vomiting. No S/S of distress noted. TROY midline is clean, intact, patent and SL. R chest permacath is clean, intact and patent. Kept Pt clean, dry, warm and comfortable. PRN meds were given as ordered per Pt request. Safety precautions is maintained. Bed at low position, brakes locked, side rails upX2 and call light is within reach. Will endorse to morning nurse for SEAMUS.
[2019-05-13 07:04] LABS: BASOPHILS % (AUTO) 0.4 % (0.0-2.0); EOSINOPHILS % (AUTO) 1.5 % (0.0-6.0); HEMATOCRIT 21 % (39-51); HEMOGLOBIN 7.3 g/dL (13.5-17.5); LYMPHOCYTES # (AUTO) 0.7 /CMM (0.8-4.8); LYMPHOCYTES % (AUTO) 11.9 % (20.0-44.0); MEAN CORPUSCULAR HGB CONC 34 g/dl (31.0-36.0); MEAN CORPUSCULAR VOLUME 81 fL (80-96); MONOCYTES # (AUTO) 0.5 /CMM (0.1-1.30); MONOCYTES % (AUTO) 8.6 % (2.0-12.0); NEUTROPHILS # (AUTO) 4.4 /CMM (1.8-8.9); NEUTROPHILS % (AUTO) 77.6 % (43.0-81.0); PLATELET COUNT (AUTO) 138 /CMM (150-450); RED BLOOD CELL COUNT(AUTO) 2.61 MIL/uL (4.5-6.0); WHITE BLOOD COUNT (AUTO) 5.7 K/uL (4.3-11.0)
--- NOTE | 2019-05-13 07:15 | NUR ---
MS RN OPENING NOTES RECEIVED PT IN BED, AWAKE, AO X4. TOLERATING RA, WITH NO ACUTE RESPIRATORY DISTRESS NOTED. PT DENIES ANY PAIN OR DISCOMFORT. PT ALSO DENIES CONCERNS OR QUESTIONS AT THIS TIME. PIV TROY MIDLINE, FLUSHED WITH NS, INTACT AND OPERATIONAL. RIGHT CHEST WALL PERMACATH NOTED FOR HD ACCESS. PT KEPT COMFORTABLE IN BED. CALL LIGHT KEPT WITHIN REACH. PT'S BED IN LOWEST, LOCKED POSITION WITH SR X3. WILL CONTINUE TO MONITOR.
[2019-05-13 07:48] LABS: ALBUMIN 2.5 g/dL (3.4-5.0); BILIRUBIN,TOTAL 0.3 mg/dL (0.2-1.0); MAGNESIUM 1.7 mg/dL (1.8-2.4); PHOSPHORUS 4.8 mg/dL (2.5-4.9); POTASSIUM 4.6 mmol/L (3.5-5.1); TOTAL PROTEIN, SERUM 7.3 g/dL (6.4-8.2)
[2019-05-13 08:00] VITALS: BP 164/97
[2019-05-13] MEDS: AMLODIPINE BESYLATE 5 MG TABLET PO SCH (08:13)
[2019-05-13 08:22] LABS: CREATININE 7.9 mg/dL (0.6-1.3)
[2019-05-13] MEDS: Magnesium 1GM/D5W 100ML PREMIX 100 ML IV SCH ×2 (11:10→12:56)
[2019-05-13 16:00] VITALS: BP 163/92
[2019-05-13 17:07] LABS: APPEARANCE,URINE CLEAR (CLEAR); BILIRUBIN,URINE NEGATIVE (NEGATIVE); BLOOD, URINE SMALL Ery/uL (NEGATIVE); COLOR,URINE YELLOW (YELLOW); KETONES,URINE NEGATIVE (NEGATIVE); LEUKOCYTE ESTERASE ,URINE NEGATIVE (NEGATIVE); NITRITE, URINE NEGATIVE (NEGATIVE); PROTEIN,URINE >=300 mg/dl (NEGATIVE); UGLUCOSE 500 MG/DL mg/dL (NEGATIVE); UROBILINOGEN,URINE 0.2 EU/dL (0.2)
--- NOTE | 2019-05-13 18:39 | NUR ---
MS RN CLOSING NOTES PT IN BED, AWAKE, AO X4. TOLERATING RA, WITH NO ACUTE RESPIRATORY DISTRESS NOTED. PT DENIES ANY PAIN OR DISCOMFORT. PT ALSO DENIES CONCERNS OR QUESTIONS AT THIS TIME. PIV TROY MIDLINE, FLUSHED WITH NS, INTACT AND OPERATIONAL. RIGHT CHEST WALL PERMACATH NOTED FOR HD ACCESS. ALL NEEDS AND CARE ATTENDED. PT KEPT COMFORTABLE IN BED. CALL LIGHT KEPT WITHIN REACH. PT'S BED IN LOWEST, LOCKED POSITION WITH SR X3. WILL ENDORSE TO INCOMING NIGHT NURSE FOR SE[facility].
--- NOTE | 2019-05-13 19:05 | NUR ---
MS RN NOTE RECEIVED PT IN STABLE CONDITION A/O X4, PT NOTED TO BE ASLEEP. NO SIGNS OF SOB OR DISTRESS, NO INDICATION OF PAIN OR N/V. TROY MIDLINE IN PLACE S/L, PT NOTED WITH R CHEST WALL PERMACATH IN PLACE AND INTACT. ALL CURRENT NEEDS ATTENDED TO. BED LOW, LOCKED, UPPER RAILS UP, AND CALL LIGHT WITHIN REACH. WILL. CONT. TO MONITOR.
--- NOTE | 2019-05-13 19:10 | NUR ---
MS RN NOTE RECEIVED PT IN STABLE CONDITION A/O X3, NOTED TO BE RESTING IN BED. NO SIGNS OF SOB OR DISTRESS, NO C/O PAIN OR N/V. PEREZ NOTED TO BE IN PLACE WITH ADEQUATE URINE DRAINING. IV IN LAC IN PLACE WITH IVF INFUSING, TOLERATING WELL. ALL CURRENT NEEDS ATTENDED TO. BED LOW, LOCKED, UPPER RAILS UP, AND CALL LIGHT WITHIN REACH. WILL CONT. TO MONITOR. Addendum: 05/13/19 at 6 by JAH LYONS RN NOTE FOR WRONG PATIENT, PLEASE DISREGARD.
[2019-05-13 20:00] VITALS: BP 143/93
[2019-05-13] MEDS: ZOLPIDEM TARTRATE 5 MG TABLET PO PRN (23:17)
--- NOTE | 2019-05-14 04:00 | NUR ---
MS RN NOTE PT REFUSED 0400 VITAL SIGNS TO BE TAKEN.
[2019-05-14] MEDS: MORPHINE SULFATE INJ 2 MG/ML DISP.SYRIN IV PRN ×3 (05:56→19:20)
--- NOTE | 2019-05-14 06:28 | NUR ---
MS RN NOTE PT REMAINS IN STABLE CONDITION A/O X4, CURRENTLY WATCHING TV. NO SIGNS OF SOB OR DISTRESS, NO INDICATION OF PAIN OR N/V. TROY MIDLINE IN PLACE S/L, PT NOTED WITH R CHEST WALL PERMACATH IN PLACE AND INTACT. ALL CURRENT NEEDS ATTENDED TO. BED LOW, LOCKED, UPPER RAILS UP, AND CALL LIGHT WITHIN REACH. WILL. CONT. TO MONITOR AND ENDORSE TO NEXT SHIFT FOR [facility].
[2019-05-14 06:50] LABS: BASOPHILS # (AUTO) 0.1 /CMM (0.0-0.2); EOSINOPHILS % (AUTO) 2.7 % (0.0-6.0); HEMATOCRIT 22 % (39-51); HEMOGLOBIN 7.4 g/dL (13.5-17.5); LYMPHOCYTES # (AUTO) 1.1 /CMM (0.8-4.8); LYMPHOCYTES % (AUTO) 17.3 % (20.0-44.0); MEAN CORPUSCULAR HGB CONC 34 g/dl (31.0-36.0); MEAN CORPUSCULAR VOLUME 82 fL (80-96); MONOCYTES # (AUTO) 0.5 /CMM (0.1-1.30); MONOCYTES % (AUTO) 8.7 % (2.0-12.0); NEUTROPHILS # (AUTO) 4.5 /CMM (1.8-8.9); NEUTROPHILS % (AUTO) 70.3 % (43.0-81.0); PLATELET COUNT (AUTO) 138 /CMM (150-450); WHITE BLOOD COUNT (AUTO) 6.3 K/uL (4.3-11.0)
[2019-05-14 07:09] LABS: CALCIUM, SERUM 7.8 mg/dL (8.5-10.1); MAGNESIUM 2.1 mg/dL (1.8-2.4); PHOSPHORUS 5.7 mg/dL (2.5-4.9)
--- NOTE | 2019-05-14 07:15 | NUR ---
MS RN OPENING NOTE: RECEIVED PATIENT IN BED. AWAKE, ALERT AND ORIENTED X4. TOLERATING ROOM AIR, NO SOB NOR ACUTE DISTRESS NOTED. IV ACCESS ON TROY MIDLINE PATENT, DRESSING INTACT AND CLEAN. WITH RIGHT CHEST HD ACCESS. DRESSING IS CLEAN AND DRY. NO COMPLAINTS OF PAIN AT THE MOMENT. CALL LIGHT IN REACH, SIDE RAILS UP, BED LOCKED, LOW AND AT SEMI-MCDANIELS'S POSITION. WILL CONTINUE TO MONITOR.
[2019-05-14 08:00] VITALS: BP 172/97
[2019-05-14] MEDS: LEVOTHYROXINE SODIUM 25 MCG TABLET PO SCH (08:14)
[2019-05-14] MEDS: AMLODIPINE BESYLATE 5 MG TABLET PO SCH (09:33)
[2019-05-14 10:00] VITALS: BP 172/97
[2019-05-14 16:00] VITALS: BP 136/102
--- NOTE | 2019-05-14 19:15 | NUR ---
MS RN CLOSING NOTE: PATIENT IN BED. AWAKE, ALERT AND ORIENTED X4. TOLERATING ROOM AIR, NO SOB NOR ACUTE DISTRESS NOTED. IV ACCESS ON TROY MIDLINE PATENT, DRESSING INTACT AND CLEAN. WITH RIGHT CHEST HD ACCESS. DRESSING IS CLEAN AND DRY. NO COMPLAINTS OF PAIN AT THE MOMENT. CALL LIGHT IN REACH, SIDE RAILS UP, BED LOCKED, LOW AND AT SEMI-MCDANIELS'S POSITION. PATIENT INDEPENDENTLY ABLE TO TURN, REMINDED TO TURN AND REPOSITION Q2HR AND QPRN. PERSONAL GROOMING AND HYGIENE WAS DONE BY PATIENT. ENDORSED TO NIGHT NURSE FOR SE[facility].
[2019-05-14 20:00] VITALS: BP 148/90
[2019-05-14] MEDS: HYDROCODONE/APAP 5/325MG 1 EACH TABLET PO PRN (20:28)
[2019-05-14] MEDS: ZOLPIDEM TARTRATE 5 MG TABLET PO PRN (20:53)
[2019-05-15 04:00] VITALS: BP 148/89
[2019-05-15] MEDS: MORPHINE SULFATE INJ 2 MG/ML DISP.SYRIN IV PRN ×3 (05:52→18:51)
[2019-05-15 06:30] LABS: BASOPHILS # (AUTO) 0.1 /CMM (0.0-0.2); EOSINOPHILS % (AUTO) 2.9 % (0.0-6.0); HEMATOCRIT 22 % (39-51); HEMOGLOBIN 7.3 g/dL (13.5-17.5); LYMPHOCYTES # (AUTO) 1.1 /CMM (0.8-4.8); LYMPHOCYTES % (AUTO) 18.7 % (20.0-44.0); MEAN CORPUSCULAR HGB CONC 34 g/dl (31.0-36.0); MEAN CORPUSCULAR VOLUME 82 fL (80-96); MONOCYTES # (AUTO) 0.5 /CMM (0.1-1.30); MONOCYTES % (AUTO) 9.5 % (2.0-12.0); NEUTROPHILS # (AUTO) 3.9 /CMM (1.8-8.9); NEUTROPHILS % (AUTO) 67.9 % (43.0-81.0); PLATELET COUNT (AUTO) 135 /CMM (150-450); RED BLOOD CELL COUNT(AUTO) 2.63 MIL/uL (4.5-6.0); WHITE BLOOD COUNT (AUTO) 5.7 K/uL (4.3-11.0)
[2019-05-15 07:11] LABS: POTASSIUM 4.3 mmol/L (3.5-5.1)
--- NOTE | 2019-05-15 07:25 | NUR ---
RN OPENING NOTES PT IS AWAKE AND ALERT. DENIES ANY PAIN OR SOB AT PRESENT MOMENT. REPORT RECEIVED FROM TEACHER CCLC RN. PT HAS A MIDLINE IN TROY. URINAL AT BEDSIDE. PER REPORT PT RECEIVED DIALYSIS YESTERDAY WITH 2 L OUTPUT. BED IS LOCKED AND IN LOWEST POSITION WITH CALL LIGHT IN REACH. WILL CONTINUE TO MONITOR.
[2019-05-15] MEDS: ONDANSETRON HCL/PF 4 MG/2 ML VIAL IVP PRN (07:37)
[2019-05-15 08:00] VITALS: BP 121/86
[2019-05-15] MEDS: LEVOTHYROXINE SODIUM 25 MCG TABLET PO SCH (08:07)
[2019-05-15] MEDS: AMLODIPINE BESYLATE 5 MG TABLET PO SCH (08:08)
[2019-05-15 09:07] LABS: CREATININE 8.3 mg/dL (0.6-1.3)
[2019-05-15 09:13] LABS: MAGNESIUM 1.9 mg/dL (1.8-2.4)
[2019-05-15 16:00] VITALS: BP 134/89
[2019-05-15] MEDS: HYDROCODONE/APAP 5/325MG 1 EACH TABLET PO PRN (17:29)
--- NOTE | 2019-05-15 19:10 | NUR ---
RN PM OPENING NOTES REPORT RECIEVED FROM FREDDY SUAREZ. PT IS AWAKE AND ALERT. PT DENIES ANY PAIN OR SOB AT THIS TIME. PT SITTING IN BED WATCHING HIS PHONE IN BED. PT HAS A MIDLINE IN TROY THAT IS PATENT AND INTACT. URINAL AT BEDSIDE. PER REPORT PT RECEIVED DIALYSIS 05/14/19 WITH 2 L OUTPUT. PLAN IS TO HAVE DIALYSIS AGAIN TOMORROW. REVIEWED POC WITH PATIENT VERBALIZED UNDERSTANDING. BED IS LOCKED AND IN LOWEST POSITION WITH CALL LIGHT IN REACH. WILL CONTINUE TO MONITOR. VERBALIZED UNDERSTANDING TO CALL FOR ASSISTANCE NEEDED.
--- NOTE | 2019-05-15 19:17 | NUR ---
REPORT GIVEN TO SENIOR FOREMAN RN FOR SE[facility]US.
[2019-05-15 20:00] VITALS: BP 142/87
[2019-05-15] MEDS: ZOLPIDEM TARTRATE 5 MG TABLET PO PRN (23:12)
[2019-05-16] MEDS: MORPHINE SULFATE INJ 2 MG/ML DISP.SYRIN IV PRN ×3 (02:37→18:53)
[2019-05-16 04:00] VITALS: BP 153/95
[2019-05-16] MEDS: ONDANSETRON HCL/PF 4 MG/2 ML VIAL IVP PRN (06:35)
[2019-05-16] MEDS: LEVOTHYROXINE SODIUM 25 MCG TABLET PO SCH (06:35)
--- NOTE | 2019-05-16 06:40 | NUR ---
RN PM CLOSING NOTES PT IS AWAKE AND ALERT. PT DENIES SOB AT THIS TIME. PT IN BED WATCHING HIS PHONE IN BED. PT HAS A MIDLINE IN TROY THAT IS PATENT AND INTACT. MEDICATED FOR NAUSEA WITH ZOFRAN PER PATIENT REQUEST ORDERED. URINAL AT BEDSIDE. DIALYSIS SCHEDULED TODAY. REVIEWED POC WITH PATIENT AND PAIN MANAGEMENT PLAN WITH PATIENT AND THE NEXT TIME HE WAS ABLE TO HAVE HIS MEDICATIONS. REPORTS HIS HEADACH IS RISING. VERBALIZED UNDERSTANDING. BED IS LOCKED AND IN LOWEST POSITION WITH CALL LIGHT IN REACH. WILL CONTINUE TO MONITOR. VERBALIZED UNDERSTANDING TO CALL FOR ASSISTANCE NEEDED.
[2019-05-16 07:16] LABS: BASOPHILS # (AUTO) 0.1 /CMM (0.0-0.2); BASOPHILS % (AUTO) 1.1 % (0.0-2.0); CALCIUM, SERUM 8.1 mg/dL (8.5-10.1); EOSINOPHILS % (AUTO) 3.6 % (0.0-6.0); HEMATOCRIT 21 % (39-51); HEMOGLOBIN 7.2 g/dL (13.5-17.5); MEAN CORPUSCULAR HGB CONC 34 g/dl (31.0-36.0); MEAN CORPUSCULAR VOLUME 83 fL (80-96); MONOCYTES # (AUTO) 0.5 /CMM (0.1-1.30); MONOCYTES % (AUTO) 10.4 % (2.0-12.0); NEUTROPHILS # (AUTO) 3.2 /CMM (1.8-8.9); NEUTROPHILS % (AUTO) 64.9 % (43.0-81.0); PHOSPHORUS 6.1 mg/dL (2.5-4.9); PLATELET COUNT (AUTO) 140 /CMM (150-450); POTASSIUM 4.5 mmol/L (3.5-5.1); RED BLOOD CELL COUNT(AUTO) 2.57 MIL/uL (4.5-6.0); WHITE BLOOD COUNT (AUTO) 4.9 K/uL (4.3-11.0)
[2019-05-16 07:21] LABS: CREATININE 9.9 mg/dL (0.6-1.3)
[2019-05-16 08:00] VITALS: BP 131/85
--- NOTE | 2019-05-16 08:04 | NUR ---
RN OPENING NOTES RECEIVED PATIENT RESTING IN BED COMFORTABLY, EASILY AROUSED. HE IS AOX4, VERBAL, AND AMBULATORY. HE IS ON RA, TOLERATING WELL, NO S/SX OF RESP DISTRESS OR SOB. SKIN IS INTACT, WILL MONITOR FOR ANY CHANGES OR BREAKDOWN. CHEST RISES AND FALLS EVENLY WITH EVERY BREATH. PT DOES NO COMPLAIN OF ANY PAIN OR DISCOMFORT AT THIS TIME. TROY MIDLINE HL AND R CHEST HD CATH ARE INTACT, PT TO BE DIALYZED TODAY. PT IS ON RENAL DIET, TOLERATING WELL. SAFETY MEASURES HAVE BEEN IMPLEMENTED, CALL LIGHT IS WITHIN REACH, BED IS IN LOWEST AND LOCKED POSITION, SIDE RAILS UP X2, WILL CONTINUE TO MONITOR FOR ANY CHANGES.
[2019-05-16] MEDS: AMLODIPINE BESYLATE 5 MG TABLET PO SCH (09:00)
--- NOTE | 2019-05-16 11:41 | NUR ---
RN NOTES PATIENT HAS BEEN DIALYZED, 1.5 L REMOVED. TOLERATED IT WELL. VSS, WILL CONTINUE TO MONITOR.
--- NOTE | 2019-05-16 15:40 | NUR ---
RAYMUNDO was made aware this afternoon by case specialist Mairelena that pt. is homeless and there is a discharge order for him since he has been given a chair time at [facility]. RAYMUNDO met with the pt. bedside. Pt. is alert and oriented x 4. DARSHANA Johnson was also bedside. RAYMUNDO informed pt. that he has been cleared for discharge and that he is no longer appropriate for SNF placement per Marielena. Pt. got upset and stated, " all this time they said they were going to get me placement." RAYMUNDO provided active listening and emotional support to the pt. Pt. does not want to go to assisted since his dialysis is in the [facility] [place] and all the shelters are in [facility]. Pt. will try to call and make accommodations. RAYMUNDO informed pt, she will request the doctor to have him stay another night. DARSHANA Johnson to notify the doctor. RAYMUNDO to follow up with the pt. tomorrow.
[2019-05-16 16:00] VITALS: BP 136/94
--- NOTE | 2019-05-16 19:28 | NUR ---
RN CLOSING NOTES PATIENT IS RESTING IN BED COMFORTABLY. DOES NOT SHOW ANY S/SX OF DISTRESS. NO ACUTE CHANGES OCCURRED THROUGHOUT THE SHIFT, VITAL SIGNS GERRY STABLE, PT NEEDS HAVE BEEN MET. SAFETY MEASURES HAVE BEEN IMPLEMENTED, CALL LIGHT IS WITHIN REACH, BED IS IN LOWEST AND LOCKED POSITION, PT HAS BEEN ENDORSED TO NIGHTSHIFT RN.
--- NOTE | 2019-05-16 19:30 | NUR ---
MS RN OPENING NOTES Received patient A/O x 4, awake on bed. Per patient he is not relieved of his headache despite the Morphine administered by the AM RN. Patient claimed sharp pain medial of his head, 03/06, patient is calm watching TV. Administered additional due meds to adjunct patient's claim. On RA, no SOB/respiratory distress noted. Kept on bed clean, dry and comfortable. Call light within easy reach. On fall and aspiration precautions.
[2019-05-16] MEDS: HYDROCODONE/APAP 5/325MG 1 EACH TABLET PO PRN (19:52)
[2019-05-16 20:00] VITALS: BP 130/87
[2019-05-16] MEDS: ZOLPIDEM TARTRATE 5 MG TABLET PO PRN (22:42)
[2019-05-17] MEDS: MORPHINE SULFATE INJ 2 MG/ML DISP.SYRIN IV PRN ×3 (02:41→21:46)
[2019-05-17 04:00] VITALS: BP 148/95
--- NOTE | 2019-05-17 06:21 | NUR ---
MS RN CLOSING NOTES Patient asleep, easily awaken. On RA, no respiratory distress, no s/sx of discomfort noted at this time. All nursing needs attended, all due meds given as ordered. No new complaints made. Afebrile throughout the shift, medicated for complaints of pain, noted effective. No episode of N/V within the shift. Able to perform ADLs without assistance, tolerated well. Kept on bed clean, dry and comfortable. On fall and aspiration precautions. Call light within easy reach. Endorsed to the next shift.
[2019-05-17 06:30] LABS: BASOPHILS # (AUTO) 0.1 /CMM (0.0-0.2); BASOPHILS % (AUTO) 1.1 % (0.0-2.0); HEMATOCRIT 23 % (39-51); HEMOGLOBIN 7.6 g/dL (13.5-17.5); LYMPHOCYTES # (AUTO) 0.9 /CMM (0.8-4.8); LYMPHOCYTES % (AUTO) 19.1 % (20.0-44.0); MEAN CORPUSCULAR HGB CONC 33 g/dl (31.0-36.0); MEAN CORPUSCULAR VOLUME 83 fL (80-96); MONOCYTES # (AUTO) 0.5 /CMM (0.1-1.30); MONOCYTES % (AUTO) 10.1 % (2.0-12.0); NEUTROPHILS # (AUTO) 3.3 /CMM (1.8-8.9); NEUTROPHILS % (AUTO) 66.7 % (43.0-81.0); PLATELET COUNT (AUTO) 159 /CMM (150-450); RED BLOOD CELL COUNT(AUTO) 2.73 MIL/uL (4.5-6.0); WHITE BLOOD COUNT (AUTO) 4.9 K/uL (4.3-11.0)
[2019-05-17 06:52] LABS: CALCIUM, SERUM 8.1 mg/dL (8.5-10.1); MAGNESIUM 1.9 mg/dL (1.8-2.4); PHOSPHORUS 5.5 mg/dL (2.5-4.9); POTASSIUM 4.5 mmol/L (3.5-5.1)
[2019-05-17 07:06] LABS: CREATININE 8.5 mg/dL (0.6-1.3)
[2019-05-17 08:00] VITALS: BP 120/72
[2019-05-17] MEDS: LEVOTHYROXINE SODIUM 25 MCG TABLET PO SCH (08:03)
[2019-05-17] MEDS: AMLODIPINE BESYLATE 5 MG TABLET PO SCH (08:04)
[2019-05-17 16:00] VITALS: BP 133/87
--- NOTE | 2019-05-17 18:33 | NUR ---
RN NOTE: PATIENT REMAINS ALERT AWAKE ORIENTED X 4. ON ROOM AIR, NO BREATHING DISTRESS NOTED. DENIES CHEST PAIN & DISCOMFORT. C/O HEADACHES PER PATIENT CHRONIC, CONTINUE WITH PAIN MANAGEMENT PRN MEDICATION ORDERED, EFFECTIVE. NO FALL/INJURY NOTED. COMPLIANT WITH NURSING CARE & TREATMENT. SAFETY MEASURES OBSERVED. ENCOURAGE PATIENT TO USE CALL LIGHT FOR ASSISTANCE. CONTINUE WITH PLAN OF CARE. CALL LIGHT WITHIN REACH. Addendum: 05/17/19 at 1837 by JUAN PABLO TORRES RN HD CATH INTACT TO RIGHT CHEST WALL. DRESSING CLEAN & DRY.
--- NOTE | 2019-05-17 19:35 | NUR ---
MS RN NOTES RECEIVED ON BED,SLEEPING,AROUSABLE TO VERBAL STIMULI,BREATHING NORMAL,NOT IN ANY FORM OF DISTRESS.WITH LEFT ARM MIDLINE SALINE LOCK FOR MEDS,RIGHT CHEST WALL CATH FOR HD TREATMENT.CALL LIGHT IN REACH,NEEDS ANTICIPATED.
[2019-05-17 20:00] VITALS: BP 133/76
[2019-05-17 20:34] VITALS: BP 133/76
--- NOTE | 2019-05-17 21:46 | NUR ---
MS RN NOTES C/O HEADACHE 8/10 ON PAIN SCALE,MEDICATED WITH MORPHINE 2MG IV ORDERED FOR SEVERE PAIN.
[2019-05-17] MEDS: ZOLPIDEM TARTRATE 5 MG TABLET PO PRN (23:16)
--- NOTE | 2019-05-17 23:16 | NUR ---
MS RN NOTES C/O INSOMNIA,AMBIEN 5MG PO GIVEN ORDERED.
[2019-05-18] VITALS: BP 124/62
[2019-05-18 04:00] VITALS: BP 147/84
--- NOTE | 2019-05-18 06:17 | NUR ---
MS RN NOTES SLEPT WELL AT NIGHT WITH AMBIEN 5MG PO.HEADACHE IMPROVED.MIDLINE LEFT UPPER ARM INTACT AND PATENT.FOR D/C PLANNING TO ASSISTED LIVING,CALL LIGHT IN REACH,NEEDS ATTENDED.WILL ENDORSE TO DAY NURSE FOR [facility].
[2019-05-18 06:39] LABS: BASOPHILS # (AUTO) 0.1 /CMM (0.0-0.2); BASOPHILS % (AUTO) 1.1 % (0.0-2.0); EOSINOPHILS % (AUTO) 3.7 % (0.0-6.0); HEMATOCRIT 23 % (39-51); HEMOGLOBIN 7.7 g/dL (13.5-17.5); LYMPHOCYTES % (AUTO) 18.8 % (20.0-44.0); MEAN CORPUSCULAR HGB CONC 34 g/dl (31.0-36.0); MEAN CORPUSCULAR VOLUME 83 fL (80-96); MONOCYTES # (AUTO) 0.5 /CMM (0.1-1.30); MONOCYTES % (AUTO) 9.9 % (2.0-12.0); NEUTROPHILS # (AUTO) 3.7 /CMM (1.8-8.9); NEUTROPHILS % (AUTO) 66.5 % (43.0-81.0); PLATELET COUNT (AUTO) 177 /CMM (150-450); RED BLOOD CELL COUNT(AUTO) 2.75 MIL/uL (4.5-6.0); WHITE BLOOD COUNT (AUTO) 5.5 K/uL (4.3-11.0)
[2019-05-18 07:07] LABS: CALCIUM, SERUM 8.3 mg/dL (8.5-10.1); PHOSPHORUS 5.7 mg/dL (2.5-4.9); POTASSIUM 4.4 mmol/L (3.5-5.1)
[2019-05-18 07:09] LABS: CREATININE 10.6 mg/dL (0.6-1.3)
--- NOTE | 2019-05-18 07:30 | NUR ---
MS RN OPENING NOTES RECEIVED REPORT AT BEDSIDE. PATIENT SLEEPING, OPEN EYES WHEN CALLED BY NAME. IV TROY MIDLINE, SL , PATENT AND FLUSHED WELL. RIGHT CHEST PERMA CATH, DRESSING INTACT. PATIENT COMPLAIN OF HEADACHE 7 OUT OF 10 AND ASKING FOR PAIN MEDICATION. PAIN MED TO BE GIVEN. BED LOW AND LOCKED, SIDE RAILS UP X2, CALL LIGHT WITHIN REACH. INSTRUCTED TO CALL IF HE NEEDS GOING TO THE BATHROOM. URINAL AT BEDSIDE. WILL CON TO MONITOR.
[2019-05-18 08:00] VITALS: BP 128/72
[2019-05-18] MEDS: LEVOTHYROXINE SODIUM 25 MCG TABLET PO SCH (08:06)
[2019-05-18] MEDS: MORPHINE SULFATE INJ 2 MG/ML DISP.SYRIN IV PRN ×2 (08:07→15:40)
[2019-05-18] MEDS: AMLODIPINE BESYLATE 5 MG TABLET PO SCH (09:31)
[2019-05-18] MEDS ORDERED: CLON0.1T14 PO (10:22)
[2019-05-18] MEDS ORDERED: AMLO5TAB9 PO (10:22)
[2019-05-18] MEDS ORDERED: LEVO25TA7 PO (10:22)
[2019-05-18] MEDS ORDERED: EPOETIN ALFA (10,000 UNIT) 10,000 UNIT/ML VIAL IV ONE (12:00)
--- NOTE | 2019-05-18 12:06 | NUR ---
PATIENT TO BE DISCHARGED AND SAID HE HAS CHANGED HIS MIND AND NEEDS TO BE RELOCATED. ANALYTICS LEAD MADE AWARE. ARRANGEMENT DONE WITH [facility].
--- NOTE | 2019-05-18 15:28 | NUR ---
HD DONE. 2 L OUT.
[2019-05-18 16:00] VITALS: BP_SYST 130; BP_SYST 135; BP_DIAS 68; BP_DIAS 76
--- NOTE | 2019-05-18 18:01 | NUR ---
PATIENT DISCHARGED TO [facility]. STABLE UPON DISCHARGE. ALL NEEDS ATTENDED.
== END 2019-05-18 17:59 | disposition home or self-care (01) | DRG 470 ==
LOC: ER 08:02 → MEDSG1 12:28
PROVIDERS: ADMIT Hospitalist; ATTEND Nurse Practitioner Acute Care
PROC: 05HA33Z Insertion of Infusion Device into Left Brachial Vein, Percutaneous Approach (ICD-10-PCS; 2019-05-10)
PROC: 0JH63XZ Insertion of Tunneled Vascular Access Device into Chest Subcutaneous Tissue and Fascia, Percutaneous Approach (ICD-10-PCS; principal; 2019-05-11)
PROC: 02HV33Z Insertion of Infusion Device into Superior Vena Cava, Percutaneous Approach (ICD-10-PCS; principal; 2019-05-11)
PROC: 30233P1 Transfusion of Nonautologous Frozen Red Cells into Peripheral Vein, Percutaneous Approach (ICD-10-PCS; principal; 2019-05-11)
PROC: B518YZA Fluoroscopy of Superior Vena Cava using Other Contrast, Guidance (ICD-10-PCS; principal; 2019-05-11)
PROC: 5A1D70Z Performance of Urinary Filtration, Intermittent, Less than 6 Hours Per Day (ICD-10-PCS; 2019-05-12)
PROC: 5A1D70Z Performance of Urinary Filtration, Intermittent, Less than 6 Hours Per Day (ICD-10-PCS; 2019-05-14)
PROC: 5A1D70Z Performance of Urinary Filtration, Intermittent, Less than 6 Hours Per Day (ICD-10-PCS; 2019-05-16)
PROC: 5A1D70Z Performance of Urinary Filtration, Intermittent, Less than 6 Hours Per Day (ICD-10-PCS; 2019-05-18)
DX: I12.0 Hypertensive chronic kidney disease with stage 5 chronic kidney disease or end stage renal disease (principal); K85.90 Acute pancreatitis without necrosis or infection, unspecified; E87.2 Acidosis; E44.0 Moderate protein-calorie malnutrition; N25.0 Renal osteodystrophy; E83.39 Other disorders of phosphorus metabolism; E83.42 Hypomagnesemia; N18.6 End stage renal disease; E87.5 Hyperkalemia; Z99.2 Dependence on renal dialysis; D63.1 Anemia in chronic kidney disease; Z68.23 Body mass index [BMI] 23.0-23.9, adult; Z91.14 Patient's other noncompliance with medication regimen; Z91.19 Patient's noncompliance with other medical treatment and regimen; R51 Headache; E03.9 Hypothyroidism, unspecified
CPT/HCPCS: 36415; 70450-TC; 71045-TC; 76700-TC; 80048-TC; 80053-TC; 80061-TC; 80076-TC; 81000-TC; 82550-TC; 82570-TC; 83540-TC; 83690-TC; 83735-TC; 83970; 84100-TC; 84155-TC; 84300-TC; 84439-TC; 84443-TC; 84484-TC; 85025-TC; 85610-TC; 85652-TC; 85730-TC; 86225; 86235; 86706; 86803; 86850-TC; 86921-TC; 87081-TC; 87086-TC; 87340; 90935-TC; 97116-TC; 97530-TC; C1750; G0378; J0690; J0885; J1644; J2270; J2405; J2704; J3475; J3490; J7030; J7040; P9016-BL

== ENCOUNTER 2019-08-09 16:05 | Inpatient (IN) | payer OTHER ==
[~2019-08-09] VITALS: Ht 185.4 cm; Wt 80.3 kg
[~2019-08-09 16:05] MED LIST changes: +AMLO5TAB9 PO; +CLON0.1T14 PO; -Docusate Sodium PO; -FERR325T23 PO; -HYDR-3974 PO; +LEVO25TA7 PO
[2019-08-09] MEDS ORDERED: CALC667C6 PO (16:19)
[2019-08-09] MEDS ORDERED: LEVO50TA8 PO (16:21)
[2019-08-09] MEDS ORDERED: AMLO5TAB9 PO (16:21)
[2019-08-09] MEDS ORDERED: CLON0.1T14 PO (16:21)
--- NOTE | 2019-08-09 16:30 | NUR ---
[facility] C/O MALFUNCTIONING DIALYSIS CATHETER. PATIENT A/OX4, BREATHING EVEN AND UNLABORED, NO SOB NOTED, NEEDS ATTENDED, AMBULATORY WITH STEADY GAIT. PATIENT COMPLETED HALF OF HIS HEMODIALYSIS SESSION TODAY.
--- NOTE | 2019-08-09 16:40 | NUR ---
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 WAITING FOR MIDLINE INSERTION.
--- NOTE | 2019-08-09 16:53 | NUR ---
CALLED FOR BED AND SUBITTED MOVE SHEET
--- NOTE | 2019-08-09 17:41 | NUR ---
JUAN CARLOS CALLED ITS [facility]
--- NOTE | 2019-08-09 17:47 | NUR ---
SPOKE WITH SHANNON ZAMORA, UNABLE TO PROVIDE CLINICALS AT THIS TIME. STILL WAITING FOR MIDLINE INSERTION FOR BLOOD DRAW.
--- NOTE | 2019-08-09 17:49 | NUR ---
BED ASSIGNMENT 115-1
--- NOTE | 2019-08-09 18:17 | NUR ---
MIDLINE NURSE AT BEDSIDE.
--- NOTE | 2019-08-09 18:32 | NUR ---
MIDLINE INSERTED ON RIGHT UPPER ARM.
[2019-08-09 18:36] LABS: BASOPHILS % (AUTO) 1.2 % (0.0-2.0); EOSINOPHILS % (AUTO) 5.2 % (0.0-6.0); HEMATOCRIT 41 % (39-51); LYMPHOCYTES # (AUTO) 0.9 /CMM (0.8-4.8); LYMPHOCYTES % (AUTO) 22.4 % (20.0-44.0); MEAN CORPUSCULAR HGB CONC 32 g/dl (31.0-36.0); MEAN CORPUSCULAR VOLUME 91 fL (80-96); MONOCYTES # (AUTO) 0.4 /CMM (0.1-1.30); MONOCYTES % (AUTO) 10.9 % (2.0-12.0); NEUTROPHILS # (AUTO) 2.3 /CMM (1.8-8.9); NEUTROPHILS % (AUTO) 60.3 % (43.0-81.0); PLATELET COUNT (AUTO) 150 /CMM (150-450); RED BLOOD CELL COUNT(AUTO) 4.47 MIL/uL (4.5-6.0); WHITE BLOOD COUNT (AUTO) 3.9 K/uL (4.3-11.0)
--- NOTE | 2019-08-09 18:37 | NUR ---
REPORT GIVEN TO LILIAN SUAREZ FOR [facility].
[2019-08-09 19:01] LABS: ALBUMIN 3.8 g/dL (3.4-5.0); BILIRUBIN,DIRECT 0.1 mg/dL (0.0-0.2); BILIRUBIN,TOTAL 0.5 mg/dL (0.2-1.0); CALCIUM, SERUM 8.7 mg/dL (8.5-10.1); POTASSIUM 5.5 mmol/L (3.5-5.1); TOTAL PROTEIN, SERUM 8.1 g/dL (6.4-8.2)
[2019-08-09 19:02] LABS: CREATININE 9.3 mg/dL (0.6-1.3)
--- NOTE | 2019-08-09 19:11 | NUR ---
Spoke with alex winkler, clinicals information provided, transferred back to admitting.
--- NOTE | 2019-08-09 19:42 | NUR ---
PATIENT SEEN BY KEVAN FOR EVALUATION
--- NOTE | 2019-08-09 19:43 | NUR ---
PATIENT IN NO DISTRESS, TRANSFERRED TO ROOM VIA ACLS PROTOCOL. AMBULATORY WITH STEADY GAIT.
[2019-08-09] MEDS ORDERED: ZOLPIDEM TARTRATE 5 MG TABLET PO PRN (20:00)
[2019-08-09] MEDS ORDERED: HYDROCODONE/APAP 5/325MG 1 EACH TABLET PO PRN (20:00)
[2019-08-09] MEDS ORDERED: MAG HYDROX/AL HYDROX/SIMETH 30 ML UDC PO PRN (20:00)
[2019-08-09] MEDS ORDERED: CLONIDINE HCL 0.1 MG TABLET PO PRN (20:00)
[2019-08-09] MEDS ORDERED: ACETAMINOPHEN 325 MG TABLET PO PRN (20:00)
[2019-08-09] MEDS ORDERED: MORPHINE SULFATE INJ 2 MG/ML DISP.SYRIN IV PRN (20:00)
[2019-08-09] MEDS ORDERED: ONDANSETRON HCL/PF 4 MG/2 ML VIAL IVP PRN (20:00)
[2019-08-09] MEDS ORDERED: MAGNESIUM HYDROXIDE 30 ML UDC PO PRN (20:00)
--- NOTE | 2019-08-09 20:30 | NUR ---
ADMISSION NOTES: RECEIVED REPORT FROM MIRELA SUAREZ, PT BROUGHT TO THE UNIT AT 1950 VIA IEMORNEY. PT A/O X4, ON RA RESPIRATIONS EVEN AND UNLABORED. DENIES ANY PAIN OR DISCOMFORT AT THIS TIME. NEW MIDLINE KATIE, PATENT AND FLUSHING WELL, ON HL, GOOD BLOOD RETURN NOTED. SKIN ASSESSMENT PERFORMED, PT STATED HE HAS GENITAL HERPES, PT REFUSED ASSESSMENT OF GENITAL AREA, REFUSED FOR PHOTO. PT INSISTED ON USING OWN STREET CLOTHES AND PANTS. ORIENTED TO UNIT POLICY AND HOURLY ROUNDING, USE OF CALL LIGHT SYSTEM. RIGHT CW PERMACATH MALFUNCTION, DRESSING IN PLACED. PER PT HE HAD HD TODAY BUT NO OUTPUT WAS REMOVED. DISCUSSED PLAN OF CARE TO PT. VS TAKEN AND RECORDED. GARCIA CORMIER COMPLETED INVENTORY OF BELONGINGS. SAFETY PRECAUTIONS FOR FALL INITIATED, CALL LIGHT IN REACH, WILL CONTINUE MONITORING PT.
[2019-08-09] MEDS: SODIUM POLYSTYRENE SULFONATE 15 G/60 ML BOTTLE PO ONE ×2 (20:40→20:44)
[2019-08-09 20:42] VITALS: BP_SYST 139; BP_SYST 141; BP_DIAS 98; BP_DIAS 99
--- NOTE | 2019-08-09 20:44 | NUR ---
refusal for kayexalate: informed pt asbout medication kayexalate for potassium 5.5, pt initially agree. rn prepared meds open in front of pt, however upon pt seeing the bottle he changed his mind and said he doesnt want the said medication. education provided to pt regarding medication action/purpose. but pt still refused. tech intern made aware.
[2019-08-10 04:22] VITALS: BP 149/99
--- NOTE | 2019-08-10 06:43 | NUR ---
end of shift report: pt complained that he's unable to sleep at 0500am, informed pt prn sleeping pill cannot be administered at this time, as its beyond the policy, last time for admin is 0200am for sleping pills. 0500am is already late. pt understand. pt ambulatory, self care, continent, luzmaria midline remains patent and flushing well, with good blood return noted. awaiting nephro consult. right cw hd catheter dressing remains c/d/i, no active bleeding noted. safety precautions for fall remains engaged, call light in reach, will endorse to day rn for continuity of care.
[2019-08-10 07:19] LABS: BASOPHILS % (AUTO) 1.1 % (0.0-2.0); EOSINOPHILS % (AUTO) 5.9 % (0.0-6.0); HEMATOCRIT 41 % (39-51); HEMOGLOBIN 12.9 g/dL (13.5-17.5); LYMPHOCYTES % (AUTO) 21.9 % (20.0-44.0); MEAN CORPUSCULAR HGB CONC 32 g/dl (31.0-36.0); MEAN CORPUSCULAR VOLUME 92 fL (80-96); MONOCYTES # (AUTO) 0.5 /CMM (0.1-1.30); MONOCYTES % (AUTO) 11.3 % (2.0-12.0); NEUTROPHILS # (AUTO) 2.6 /CMM (1.8-8.9); NEUTROPHILS % (AUTO) 59.8 % (43.0-81.0); PLATELET COUNT (AUTO) 161 /CMM (150-450); RED BLOOD CELL COUNT(AUTO) 4.45 MIL/uL (4.5-6.0); WHITE BLOOD COUNT (AUTO) 4.4 K/uL (4.3-11.0)
[2019-08-10 07:30] VITALS: BP 148/89
[2019-08-10 07:47] LABS: ALBUMIN 3.6 g/dL (3.4-5.0); BILIRUBIN,TOTAL 0.4 mg/dL (0.2-1.0); MAGNESIUM 2.5 mg/dL (1.8-2.4); PHOSPHORUS 6.6 mg/dL (2.5-4.9); POTASSIUM 5.5 mmol/L (3.5-5.1); TOTAL PROTEIN, SERUM 7.8 g/dL (6.4-8.2)
[2019-08-10 07:49] LABS: CREATININE 10.2 mg/dL (0.6-1.3)
[2019-08-10 08:00] VITALS: BP 148/89
[2019-08-10] MEDS: LEVOTHYROXINE SODIUM 25 MCG TABLET PO SCH (08:07)
[2019-08-10] MEDS: CALCIUM ACETATE 667 MG TABLET PO SCH ×3 (08:07→18:51)
[2019-08-10] MEDS: PANTOPRAZOLE 40 MG TABLET.DR PO SCH (08:07)
[2019-08-10] MEDS ORDERED: AMLODIPINE BESYLATE 5 MG TABLET PO SCH (09:00)
[2019-08-10] MEDS ORDERED: hydrOXYzine 10 MG TABLET PO PRN (10:30)
[2019-08-10] MEDS ORDERED: ALTEPLASE CATHFLO 2 MG/VIAL IV ONE (12:30)
--- NOTE | 2019-08-10 12:30 | NUR ---
MS RN NOTES CATH FLOW GIVEN BY HD NURSE. PATIENT TOLERATED WELL.
[2019-08-10 16:00] VITALS: BP 144/95
--- NOTE | 2019-08-10 19:27 | NUR ---
MS RN NOTES PATIENT IN BED RESTING NO SOB OR ACUTE DISTRESS NOTED. NO ACUTE CHANGES NOTED DURING SHIFT. ENDORSED CARE TO PM SHIFT.
--- NOTE | 2019-08-10 19:45 | NUR ---
KAROLINA/RN RECEIVED PATIENT IN BED AWAKE, ALERT, ORIENTED, COMFORTABLE, NO C/O PAIN, NO DISTRESS NOTED, CALL LIGHT IN REACH. WILL MONITOR.
[2019-08-11 04:00] VITALS: BP 144/75
--- NOTE | 2019-08-11 06:22 | NUR ---
KAROLINA/RN PATIENT IS AWAKE, COMFORTABLE, NO DISTRESS NOTED, ALL NEEDS ATTENDED AT THIS TIME, WILL CONTINUE TO MONITOR.
--- NOTE | 2019-08-11 07:19 | NUR ---
RN OPENING NOTES RECEIVED PATIENT IN BED, AWAKE. A/O X4, VERBALLY RESPONSIVE AND ABLE TO MAKE NEEDS KNOWN. DENIES PAIN OR ANY DISCOMFORT AT THE MOMENT. ON ROOM AIR, NO SOB NOTED. IN NO APPARENT DISTRESS NOTED. IV ACCESS ON KATIE MIDLINE HEPLOCK , INTACT, PATENT AND FLUSHED WELL. NOTED OF RCW PERMACATH , NO SIGNS OF INFECTION. SAFETY MEASURES APPLIED. BED IN LOW POSITION AND LOCKED. CALL LIGHT WITHIN REACH. WILL CONTINUE TO MONITOR
[2019-08-11] MEDS: PANTOPRAZOLE 40 MG TABLET.DR PO SCH (07:33)
[2019-08-11] MEDS: LEVOTHYROXINE SODIUM 25 MCG TABLET PO SCH (07:33)
[2019-08-11] MEDS: SEVELAMER CARBONATE 0.8 GM POWD.PACK GT SCH ×3 (07:33→18:00)
[2019-08-11] MEDS: CALCIUM ACETATE 667 MG TABLET PO SCH ×3 (07:33→18:28)
[2019-08-11 08:00] VITALS: BP 150/95
[2019-08-11] MEDS: AMLODIPINE BESYLATE 5 MG TABLET PO SCH (08:47)
[2019-08-11 16:00] VITALS: BP 122/86
--- NOTE | 2019-08-11 19:07 | NUR ---
RN CLOSING NOTES PATIENT IN BED AWAKE, COMFORTABLY WATCHING TELEVISION. A/O X 4. VERBALLY RESPONSIVE AND ABLE TO MAKE NEEDS KNOWN. DENIES ANY PAIN AT THE MOMENT. ON ROOM AIR, SATURATING WELL. NO SOB NOTED. IV ACCESS INTACT, PATENT AND FLUSHED WELL. NO SIGNS OF INFILTRATION. KEPT CLEAN AND DRY. ALL NEEDS MET. SAFETY PRECAUTIONS IN PLACED. ENDORSED TO PM RN FOR [facility]
--- NOTE | 2019-08-11 19:10 | NUR ---
MS RN NOTE RECEIVED PT IN STABLE CONDITION A/O X4, NOTED WALKING IN ROOM. STEADY GAIT. NO SIGNS OF SOB OR DISTRESS, NO C/O PAIN OR N/V. KATIE MIDLINE IN PLACE S/L. ALL CURRENT NEEDS ATTENDED TO. BED LOW, LOCKED, UPPER RAILS UP, AND CALL LIGHT WITHIN REACH. WILL CONT. TO MONITOR.
[2019-08-11 20:00] VITALS: BP 142/76
[2019-08-12 04:18] VITALS: BP 131/80
--- NOTE | 2019-08-12 06:47 | NUR ---
MS RN NOTE PT IN STABLE CONDITION A/O X4, NOTED WALKING IN ROOM. STEADY GAIT. NO SIGNS OF SOB OR DISTRESS, NO C/O PAIN OR N/V. KATIE MIDLINE IN PLACE S/L. ALL CURRENT NEEDS ATTENDED TO. BED LOW, LOCKED, UPPER RAILS UP, AND CALL LIGHT WITHIN REACH. WILL CONT. TO MONITOR AND ENDORSE TO NEXT SHIFT FOR [facility].
[2019-08-12 08:00] VITALS: BP 137/74
[2019-08-12 08:10] LABS: BASOPHILS # (AUTO) 0.1 /CMM (0.0-0.2); BASOPHILS % (AUTO) 0.9 % (0.0-2.0); EOSINOPHILS % (AUTO) 4.3 % (0.0-6.0); HEMATOCRIT 42 % (39-51); HEMOGLOBIN 13.5 g/dL (13.5-17.5); LYMPHOCYTES # (AUTO) 1.6 /CMM (0.8-4.8); LYMPHOCYTES % (AUTO) 24.4 % (20.0-44.0); MEAN CORPUSCULAR HGB CONC 32 g/dl (31.0-36.0); MEAN CORPUSCULAR VOLUME 91 fL (80-96); MONOCYTES # (AUTO) 0.8 /CMM (0.1-1.30); MONOCYTES % (AUTO) 11.3 % (2.0-12.0); NEUTROPHILS # (AUTO) 3.9 /CMM (1.8-8.9); NEUTROPHILS % (AUTO) 59.1 % (43.0-81.0); PLATELET COUNT (AUTO) 175 /CMM (150-450); RED BLOOD CELL COUNT(AUTO) 4.66 MIL/uL (4.5-6.0); WHITE BLOOD COUNT (AUTO) 6.7 K/uL (4.3-11.0)
[2019-08-12] MEDS: LEVOTHYROXINE SODIUM 25 MCG TABLET PO SCH (08:33)
[2019-08-12] MEDS: CALCIUM ACETATE 667 MG TABLET PO SCH ×3 (08:33→18:06)
[2019-08-12] MEDS: SEVELAMER CARBONATE 0.8 GM POWD.PACK GT SCH ×3 (08:33→18:06)
[2019-08-12] MEDS: PANTOPRAZOLE 40 MG TABLET.DR PO SCH (08:33)
[2019-08-12] MEDS: AMLODIPINE BESYLATE 5 MG TABLET PO SCH (08:34)
[2019-08-12 09:00] LABS: CALCIUM, SERUM 8.1 mg/dL (8.5-10.1); POTASSIUM 5.2 mmol/L (3.5-5.1)
[2019-08-12 09:09] LABS: CREATININE 11.6 mg/dL (0.6-1.3)
[2019-08-12 16:00] VITALS: BP 129/73
--- NOTE | 2019-08-12 18:31 | NUR ---
PATIENT RESTING IN BED, WATCHING TV. A/O X 4. DENIES ANY PAIN AT THIS TIME. ON ROOM AIR, SATURATING WELL. NO SOB, NO DISTRESS NOTED. KATIE MIDLINE PATENT AND FLUSHING WELL. PATIENT KEPT CLEAN AND DRY. ALL NEEDS ATTENDED. SAFETY PRECAUTIONS IN PLACED, CALL LIGHT WITHIN REACH.WILL ENDORSED TO BILL COLLECTOR RN FOR [facility]
--- NOTE | 2019-08-12 19:40 | NUR ---
MS RN NOTES PATIENT IN BED, AWAKE, ALERT AND ORIENTED X4. BREATHING EVEN AND UNLABORED ON ROOM AIR. SHOWS NO SIGNS OF ACUTE RESPIRATORY DISTRESS. NO ACUTE PAIN. IV KATIE MIDLINE CLEAN DRY AND INTACT. SHOWS NO SIGNS OF INFILTRATION, NO REDNESS. SAFETY PRECAUTIONS IN PLACE. BED IN LOWEST POSITION, LOCKED AND CALL LIGHT KEPT WITHIN REACH. WILL CONTINUE TO MONITOR.
[2019-08-12 20:00] VITALS: BP_SYST 124; BP_SYST 127; BP_DIAS 71
[2019-08-13 04:00] VITALS: BP 125/81
--- NOTE | 2019-08-13 06:48 | NUR ---
MS RN NOTES PATIENT IN BED, ASLEEP, ALERT AND ORIENTED X4. BREATHING EVEN AND UNLABORED ON ROOM AIR. SHOWS NO SIGNS OF ACUTE RESPIRATORY DISTRESS. NO ACUTE PAIN. IV KATIE MIDLINE CLEAN DRY AND INTACT. SHOWS NO SIGNS OF INFILTRATION, NO REDNESS. ALL DUE MEDICATIONS GIVEN. SAFETY PRECAUTIONS IN PLACE. BED IN LOWEST POSITION, LOCKED AND CALL LIGHT KEPT WITHIN REACH. WILL ENDORSE TO ONCOMING NURSE.
[2019-08-13 06:58] LABS: BASOPHILS % (AUTO) 0.8 % (0.0-2.0); EOSINOPHILS % (AUTO) 5.7 % (0.0-6.0); HEMATOCRIT 41 % (39-51); HEMOGLOBIN 13.1 g/dL (13.5-17.5); LYMPHOCYTES # (AUTO) 1.2 /CMM (0.8-4.8); LYMPHOCYTES % (AUTO) 22.3 % (20.0-44.0); MEAN CORPUSCULAR HGB CONC 32 g/dl (31.0-36.0); MEAN CORPUSCULAR VOLUME 91 fL (80-96); MONOCYTES # (AUTO) 0.6 /CMM (0.1-1.30); MONOCYTES % (AUTO) 10.8 % (2.0-12.0); NEUTROPHILS # (AUTO) 3.3 /CMM (1.8-8.9); NEUTROPHILS % (AUTO) 60.4 % (43.0-81.0); PLATELET COUNT (AUTO) 158 /CMM (150-450); RED BLOOD CELL COUNT(AUTO) 4.48 MIL/uL (4.5-6.0); WHITE BLOOD COUNT (AUTO) 5.5 K/uL (4.3-11.0)
[2019-08-13 08:00] VITALS: BP 137/84
[2019-08-13] MEDS: SEVELAMER CARBONATE 0.8 GM POWD.PACK GT SCH ×3 (08:44→16:55)
[2019-08-13] MEDS: PANTOPRAZOLE 40 MG TABLET.DR PO SCH (08:45)
[2019-08-13] MEDS: LEVOTHYROXINE SODIUM 25 MCG TABLET PO SCH (08:45)
[2019-08-13] MEDS: CALCIUM ACETATE 667 MG TABLET PO SCH ×3 (08:45→16:55)
[2019-08-13] MEDS: AMLODIPINE BESYLATE 5 MG TABLET PO SCH (08:47)
--- NOTE | 2019-08-13 09:48 | NUR ---
alert, oriented, self-care, compliant with care. took all po meds EXCEPT renvela, last po4 on 08/10 was 6.6, " it is nasty meds, i deal with po4 myself". asked whether he wants me to mix with juice, or apple sauce, " it is even nastier" for HD today
[2019-08-13 10:13] VITALS: BP 137/84
[2019-08-13] MEDS ORDERED: ALTEPLASE CATHFLO 2 MG/VIAL IV ONE (14:00)
--- NOTE | 2019-08-13 14:35 | NUR ---
completed his 2 hrs and 1/2 dialysis, 1.4liter out, alert, oriented, and appropriate. . Plan is to have UE venous doppler for possible fistula.
[2019-08-13 16:00] VITALS: BP 124/77
--- NOTE | 2019-08-13 16:47 | NUR ---
fell asleep aftert dialysis today, fully aware he is NPO except meds, after midnite for R ARM AV FISTULA REPLACEMENT. also verbalized understanding NO blood drawn on Right arm, consent has not been signed yet secondary to sleepiness. Oncoming to follow this up
--- NOTE | 2019-08-13 19:30 | NUR ---
MS RN OPENING NOTE RECEIVED PATIENT IN BED. A/O X4. TOLERATING ROOM AIR. RESPIRATIONS ARE EVEN AND UNLABORED. NO S/S SOB NOTED. DENIES PAIN AT THIS TIME. IN NO APPARENT DISTRESS. IV ACCESS IN KATIE MIDLINE PATENT AND SALINE LOCKED. RIGHT UPPER CHEST PERMACATH PRESENT. BED IS LOW AND LOCKED, HOB ELEVATED IN SEMI FOWLERS, SIDE RAILS UPX2. CALL LIGHT WITHIN REACH. WILL CONTINUE TO MONITOR.
[2019-08-13 20:00] VITALS: BP 132/89
--- NOTE | 2019-08-13 20:10 | NUR ---
MS RN NOTE OBTAINED CONSENT FOR RIGHT ARM AV FISTULA REPLACEMENT, BLOOD, AND ANESTHESIA. CONSENTS PLACED IN CHART.
--- NOTE | 2019-08-13 21:30 | NUR ---
MS RN NOTE INFORMED CHARGE NURSE THAT THERE IS A MISC. ORDER FOR NO BLOOD DRAW OR IV INSERTION IN RIGHT ARM. [facility] HAS A MIDLINE, WHERE LAB OBTAINS BLOOD. PATIENT NEEDS TYPE AND SCREEN FOR PROCEDURE TOMORROW AFTERNOON. CHARGE NURSE CALLED NURSING SUPP AND INFORMED OF THE SITUATION. NURSING SUPP REPLIED THE DAY SHIFT WILL OBTAIN ORDER/CONSENT FOR TROY MIDLINE FOR PATIENT, NO BLOOD DRAW FROM RIGHT ARM. LAB OBTAINED BLOOD FROM LEFT ARM. SIGN PLACED ABOVE BED WITH NO RIGHT ARM BLOOD DRAW.
[2019-08-13 22:00] VITALS: BP 132/89
[2019-08-13 22:55] LABS: APPEARANCE,URINE CLEAR (CLEAR); BILIRUBIN,URINE NEGATIVE (NEGATIVE); BLOOD, URINE SMALL Ery/uL (NEGATIVE); COLOR,URINE YELLOW (YELLOW); KETONES,URINE NEGATIVE (NEGATIVE); LEUKOCYTE ESTERASE ,URINE NEGATIVE (NEGATIVE); NITRITE, URINE NEGATIVE (NEGATIVE); PH,URINE 7.5 (5.0-8.0); PROTEIN,URINE 100 mg/dl (NEGATIVE); UGLUCOSE 100 MG/DL mg/dL (NEGATIVE); UROBILINOGEN,URINE 0.2 EU/dL (0.2)
[2019-08-13 23:00] LABS: BACTERIA,URINE Few /HPF (None Seen); SQUAMOUS EPITHELIAL CELL,UR Rare /HPF (None Seen); WBC,URINE 0-2 /HPF (0-3)
--- NOTE | 2019-08-14 00:05 | NUR ---
MS RN NOTE MADE PATIENT AWARE OF NPO STATUS. PLACED SIGN ON DOOR AND TABLE. REMOVED ALL FOOD AND DRINK. PATIENT ACKNOWLEDGES NO PO INTAKE. WILL CONTINUE TO MONITOR.
[2019-08-14 04:00] VITALS: BP 137/82
--- NOTE | 2019-08-14 06:06 | NUR ---
MS RN CLOSING NOTE PATIENT IN BED. A/O X4. TOLERATING ROOM AIR. RESPIRATIONS ARE EVEN AND UNLABORED. NO SOB NOTED. NO C/O PAIN THROUGHOUT SHIFT. NO DISTRESS NOTED. IV ACCESS MAINTAINED IN [facility] MIDLINE PATENT AND SALINE LOCKED. RIGHT UPPER CHEST PERMACATH PRESENT. BED IS LOW AND LOCKED, HOB ELEVATED IN SEMI FOWLERS, SIDE RAILS UPX2. CALL LIGHT WITHIN REACH. WILL ENDORSE TO NEXT SHIFT
[2019-08-14 06:16] VITALS: BP 136/82
[2019-08-14 08:00] VITALS: BP 124/78
[2019-08-14] MEDS: SEVELAMER CARBONATE 0.8 GM POWD.PACK GT SCH ×3 (08:00→17:40)
[2019-08-14] MEDS: CALCIUM ACETATE 667 MG TABLET PO SCH ×3 (08:00→17:40)
[2019-08-14] MEDS: PANTOPRAZOLE 40 MG TABLET.DR PO SCH (08:23)
[2019-08-14] MEDS: LEVOTHYROXINE SODIUM 25 MCG TABLET PO SCH (08:23)
[2019-08-14] MEDS: AMLODIPINE BESYLATE 5 MG TABLET PO SCH (08:23)
[2019-08-14 11:08] LABS: BASOPHILS % (AUTO) 0.8 % (0.0-2.0); EOSINOPHILS % (AUTO) 5.2 % (0.0-6.0); HEMATOCRIT 43 % (39-51); LYMPHOCYTES # (AUTO) 1.1 /CMM (0.8-4.8); LYMPHOCYTES % (AUTO) 22.5 % (20.0-44.0); MEAN CORPUSCULAR HGB CONC 32 g/dl (31.0-36.0); MEAN CORPUSCULAR VOLUME 90 fL (80-96); MONOCYTES # (AUTO) 0.6 /CMM (0.1-1.30); MONOCYTES % (AUTO) 10.9 % (2.0-12.0); NEUTROPHILS # (AUTO) 3.1 /CMM (1.8-8.9); NEUTROPHILS % (AUTO) 60.6 % (43.0-81.0); PLATELET COUNT (AUTO) 159 /CMM (150-450); RED BLOOD CELL COUNT(AUTO) 4.83 MIL/uL (4.5-6.0); WHITE BLOOD COUNT (AUTO) 5.1 K/uL (4.3-11.0)
[2019-08-14 11:25] LABS: ALBUMIN 3.5 g/dL (3.4-5.0); BILIRUBIN,TOTAL 0.4 mg/dL (0.2-1.0); CALCIUM, SERUM 7.8 mg/dL (8.5-10.1); MAGNESIUM 2.3 mg/dL (1.8-2.4); PHOSPHORUS 6.3 mg/dL (2.5-4.9); POTASSIUM 5.2 mmol/L (3.5-5.1); TOTAL PROTEIN, SERUM 7.6 g/dL (6.4-8.2)
[2019-08-14 11:34] LABS: CREATININE 11.2 mg/dL (0.6-1.3)
[2019-08-14 15:58] VITALS: BP 120/73
[2019-08-14 16:00] VITALS: BP 120/73
--- NOTE | 2019-08-14 18:28 | NUR ---
RN NOTE: PATIENT REMAINS ALERT AWAKE ORIENTED X 4. ON ROOM AIR, NO BREATHING DISTRESS NOTED. DENIES CHEST PAIN & DISCOMFORT. NO FALL/INJURY NOTED. NO SIGNIFICANT CHANGES NOTED. S/P HD DONE TODAY, NO OUTPUT. PLAN FOR AV FISTULA CREATION TOMORROW. NEW MIDLINE INSERTED TO LEFT UPPER ARM. RIGHT ARM MIDLINE REMOVED. PT AMBULATORY. ENCOURAGE PATIENT TO USE CALL LIGHT FOR ASSISTANCE. CONTINUE TO MONITOR.
--- NOTE | 2019-08-14 19:44 | NUR ---
RN NOTES RECEIVED PATIENT ALERT AWAKE ORIENTED X 4. ON ROOM AIR, NO BREATHING DISTRESS NOTED. DENIES CHEST PAIN & OR DISCOMFORT.SAFETY MEASURES S/P HD DONE TODAY, NO OUTPUT. PLAN FOR AV FISTULA CREATION TOMORROW. NEW MIDLINE INSERTED TO LEFT UPPER ARM, DRESSING INTACT AND PATENT, RIGHT ARM MIDLINE REMOVED PER AM NURSE REPORT, PT AMBULATORY. ENCOURAGE PATIENT TO USE CALL LIGHT FOR ASSISTANCE. BED IN LOW LOCKED POSITION, WILL CONTINUE TO MONITOR ACCORDINGLY.
[2019-08-14 20:00] VITALS: BP 143/91
--- NOTE | 2019-08-15 00:08 | NUR ---
RN NOTES NPO MAINTAINED, PATIENT AWARE FOR PROCEDURE OH.
[2019-08-15 00:18] VITALS: BP 138/84
[2019-08-15 06:29] VITALS: BP 142/91
[2019-08-15] MEDS: LEVOTHYROXINE SODIUM 25 MCG TABLET PO SCH (07:30)
[2019-08-15] MEDS: PANTOPRAZOLE 40 MG TABLET.DR PO SCH (07:30)
--- NOTE | 2019-08-15 07:33 | NUR ---
RN NOTES ALL NEEDS ATTENDED AND MET, ABLE TO REST AND SLEPT WITH LONG INTERVALS, SAFETY MEASURES IN PLACE, ENDORSED TO AM NURSE FOR CONTINUITY OF CARE.
[2019-08-15 08:00] VITALS: BP 141/100
[2019-08-15] MEDS: SEVELAMER CARBONATE 0.8 GM POWD.PACK GT SCH ×3 (08:00→17:57)
[2019-08-15] MEDS: CALCIUM ACETATE 667 MG TABLET PO SCH ×3 (08:00→17:56)
--- NOTE | 2019-08-15 08:00 | NUR ---
RN NOTE: PATIENT REMAINS ALERT AWAKE ORIENTED X 4. ON ROOM AIR, NO BREATHING DISTRESS NOTED. DENIES CHEST PAIN & DISCOMFORT. NO FALL/INJURY NOTED. NO SIGNIFICANT CHANGES NOTED. ON NPO. FOR AV FISTULA PLACEMENT AT [address] CARBAJAL.CONSENTS HAS BEEN SIGNED.PT AMBULATORY. ENCOURAGED PATIENT TO USE CALL LIGHT FOR ASSISTANCE. CONTINUE TO MONITOR.
[2019-08-15] MEDS: AMLODIPINE BESYLATE 5 MG TABLET PO SCH (09:00)
--- NOTE | 2019-08-15 12:00 | NUR ---
TO OR FOR AV FISTULA PLACEMENT BY DR CARBAJAL.ALL CONSENTS HAS BEEN SIGNED WITH STABLE V/S.
[2019-08-15] MEDS ORDERED: LIDOCAINE HCL/MPF 1% 30 ML VIAL IJ ONE (12:06)
[2019-08-15] MEDS ORDERED: FENTANYL PF 100MCG/2ML AMPUL ONE ×2 (12:16→13:13)
[2019-08-15] MEDS ORDERED: HEPARIN SODIUM, PORCINE 1,000 UNIT/ML VIAL ONE (12:45)
[2019-08-15] MEDS ORDERED: CELLULOSE,OXIDIZED 1 PKT EACH MC ONE (14:20)
[2019-08-15] MEDS ORDERED: HYDROMORPHONE INJ 2 MG/ML DISP.SYRIN ONE (15:10)
--- NOTE | 2019-08-15 15:58 | NUR ---
BACK FROM O.R. S/P AV FISTULA PLACEMENT IN HIS [facility].FISTULA DONE WAS TO DEEP PER O.R. NURSE.PENDING BMP BLOOD DRAW.CALLED LAB TO SEND FUR GRADER TO DO STAT BMP ON THE PT.WITH STABLE V/S NOTED.BP 144/82 HR 58 O2 SAT 98%.PT DENIES ANY PAIN OR DISTRESS.C/O PAIN WHEN BRUIT IS CHECKED IN HIS [facility] BECAUSE ITS TOO DEEP PER MD.WILL MONITOR.
[2019-08-15 16:00] VITALS: BP_SYST 123; BP_SYST 144; BP_DIAS 79; BP_DIAS 82
[2019-08-15 16:42] LABS: CALCIUM, SERUM 8.3 mg/dL (8.5-10.1); POTASSIUM 5.3 mmol/L (3.5-5.1)
[2019-08-15 16:43] LABS: CREATININE 10.4 mg/dL (0.6-1.3)
[2019-08-15] MEDS ORDERED: SEVE0.8P GT (17:02)
[2019-08-15] MEDS ORDERED: AMLO5TAB9 PO (17:02)
--- NOTE | 2019-08-15 18:28 | NUR ---
DISCHARGED PT HOME VIA PRIVATE CAR WITH STABLE V/S.NO BLEEDING NOTED ON THE [place]OY MIDLINE.DRESSING TO THE [facility] AV FISTULA IS CLEAN AND DRY.PT DENIES ANY PAIN OR DISTRESS.NORCO GIVEN WAS EFFECTIVE.
== END 2019-08-15 18:29 | disposition home health service (06) | DRG 444 ==
LOC: ER 16:10 → MEDSG1 19:34
PROVIDERS: ADMIT Nurse Practitioner Acute Care; ATTEND Nurse Practitioner Acute Care
PROC: 5A1D70Z Performance of Urinary Filtration, Intermittent, Less than 6 Hours Per Day (ICD-10-PCS; 2019-08-11)
PROC: B547ZZA Ultrasonography of Left Subclavian Vein, Guidance (ICD-10-PCS; principal; 2019-08-14)
PROC: 05H633Z Insertion of Infusion Device into Left Subclavian Vein, Percutaneous Approach (ICD-10-PCS; principal; 2019-08-14)
PROC: 03170ZD Bypass Right Brachial Artery to Upper Arm Vein, Open Approach (ICD-10-PCS; principal; 2019-08-14)
PROC: 05PY33Z Removal of Infusion Device from Upper Vein, Percutaneous Approach (ICD-10-PCS; 2019-08-15)
PROC: 05HY33Z Insertion of Infusion Device into Upper Vein, Percutaneous Approach (ICD-10-PCS; 2019-08-15)
PROC: 0JH63XZ Insertion of Tunneled Vascular Access Device into Chest Subcutaneous Tissue and Fascia, Percutaneous Approach (ICD-10-PCS; 2019-08-15)
DX: T82.41XA Breakdown (mechanical) of vascular dialysis catheter, initial encounter (principal); I12.0 Hypertensive chronic kidney disease with stage 5 chronic kidney disease or end stage renal disease; E83.39 Other disorders of phosphorus metabolism; E87.5 Hyperkalemia; N25.0 Renal osteodystrophy; N18.6 End stage renal disease; Y71.2 Prosthetic and other implants, materials and accessory cardiovascular devices associated with adverse incidents; Z99.2 Dependence on renal dialysis; K21.9 Gastro-esophageal reflux disease without esophagitis; E03.9 Hypothyroidism, unspecified; D63.8 Anemia in other chronic diseases classified elsewhere; Y84.8 Other medical procedures as the cause of abnormal reaction of the patient, or of later complication, without mention of misadventure at the time of the procedure; Y92.009 Unspecified place in unspecified non-institutional (private) residence as the place of occurrence of the external cause; R73.9 Hyperglycemia, unspecified
CPT/HCPCS: 36410; 36415; 71045-TC; 80048-TC; 80053-TC; 80076-TC; 81000-TC; 83690-TC; 83735-TC; 84100-TC; 84132-TC; 85025-TC; 85730-TC; 86704; 86705; 86706; 86803; 86850-TC; 87081-TC; 87340; 90935-TC; 97116-TC; 97530-TC; C1750; C1769; G0378; J0690; J1100; J1170; J1644; J2405; J2704; J2997; J3010; J3490; Q0177

== ENCOUNTER 2020-05-19 13:11 | Emergency (ER) | payer MEDICARE, OTHER ==
[~2020-05-19] VITALS: Ht 185.4 cm; Wt 86.2 kg
[~2020-05-19 13:11] MED LIST changes: +AMLO-212 PO; -AMLO5TAB9 PO; +CALC667C6 PO; -LEVO25TA7 PO; +LEVO50TA8 PO; +SEVE0.8P GT
[2020-05-19 13:54] VITALS: BP 125/74
== END 2020-05-19 13:55 | disposition left against medical advice (07) ==
LOC: ER 13:17
DX: S50.312A Abrasion of left elbow, initial encounter (principal); R94.31 Abnormal electrocardiogram [ECG] [EKG]; X58.XXXA Exposure to other specified factors, initial encounter; Y93.89 Activity, other specified; Y92.89 Other specified places as the place of occurrence of the external cause; Y99.8 Other external cause status
CPT/HCPCS: 82962-TC

== ENCOUNTER 2020-12-06 13:03 | Inpatient (IN) | payer MEDICARE, OTHER ==
[~2020-12-06] VITALS: Ht 185.4 cm; Wt 87.1 kg
--- NOTE | 2020-12-06 13:18 | NUR ---
PT CAME IN FOR ANXIETY, HEART RACING SENSATION ON/OFF X 1 WEEK. DENIES CHEST PAIN SENT [facility] FOR NOTED HR >130'S. FINISHED DIALYSIS TODAY. AOX4, NO SOB NOTED, PLACE ON DIALS SUPERVISOR. DR KIRAN AT BEDSIDE. WILL CONTINUE TO MONITOR
[2020-12-06] MEDS ORDERED: DILTIAZEM HCL 25 MG IV ONE (13:55)
[2020-12-06] MEDS ORDERED: DILTIAZEM HCL 25 MG IV IVP ONE (14:00)
[2020-12-06 14:03] LABS: BASOPHILS % (AUTO) 0.9 % (0.0-2.0); EOSINOPHILS % (AUTO) 3.7 % (0.0-6.0); HEMATOCRIT 33 % (39-51); LYMPHOCYTES # (AUTO) 0.9 /CMM (0.8-4.8); LYMPHOCYTES % (AUTO) 19.6 % (20.0-44.0); MEAN CORPUSCULAR HGB CONC 33 g/dl (31.0-36.0); MEAN CORPUSCULAR VOLUME 97 fL (80-96); MONOCYTES # (AUTO) 0.8 /CMM (0.1-1.30); MONOCYTES % (AUTO) 16.1 % (2.0-12.0); NEUTROPHILS # (AUTO) 2.8 /CMM (1.8-8.9); NEUTROPHILS % (AUTO) 59.7 % (43.0-81.0); PLATELET COUNT (AUTO) 211 /CMM (150-450); RED BLOOD CELL COUNT(AUTO) 3.39 MIL/uL (4.5-6.0); WHITE BLOOD COUNT (AUTO) 4.7 K/uL (4.3-11.0)
[2020-12-06] MEDS: DILTIAZEM HCL IV 125 MG in IV D5W 100 ML IV ONE ×2 (14:07→14:26)
[2020-12-06 14:13] LABS: CALCIUM, SERUM 8.3 mg/dL (8.5-10.1); CREATININE 5.2 mg/dL (0.6-1.3); POTASSIUM 3.9 mmol/L (3.5-5.1)
[2020-12-06 14:18] LABS: BILIRUBIN,TOTAL 0.8 mg/dL (0.2-1.0); TOTAL PROTEIN, SERUM 7.4 g/dL (6.4-8.2)
--- NOTE | 2020-12-06 14:40 | NUR ---
[facility] CALLED LINK FABRIC MACHINE OPERATOR PAGED.
--- NOTE | 2020-12-06 14:53 | NUR ---
BP 133/85, HR 143, CARDIZEM DRIP TITRATED UP FROM 5MG TO 10MG. DR KIRAN AWARE. WILL CONTINUE TO MONITOR
[2020-12-06 15:18] LABS: EOSINOPHILS % (MANUAL) 5 % (0-4); LYMPHOCYTES % (MANUAL) 18 % (16-48); MONOCYTES % (MANUAL) 10 % (0-11.0); NEUTROPHILS % (MANUAL) 67 (42-76)
--- NOTE | 2020-12-06 15:29 | NUR ---
BP 130/87, HR 148, CARDIZEM DRIP TITRATED UP FROM TO 15MG. DR KIRAN AWARE. WILL CONTINUE TO MONITOR
[2020-12-06] MEDS ORDERED: MAGNESIUM HYDROXIDE 30 ML UDC PO PRN (15:30)
[2020-12-06] MEDS ORDERED: ACETAMINOPHEN 325 MG TABLET PO PRN (15:30)
[2020-12-06] MEDS ORDERED: Z GUARD REMEDY 2 OZ OINT TP PRN (15:30)
[2020-12-06] MEDS ORDERED: ONDANSETRON HCL/PF 4 MG/2 ML VIAL IVP PRN (15:30)
[2020-12-06] MEDS ORDERED: HYDROCODONE/APAP 5/325MG TABLET PO PRN (15:30)
[2020-12-06] MEDS ORDERED: DILTIAZEM HCL IV 125 MG in IV NS 0.9% 100 ML IV PRN ×2 (15:30→16:00)
--- NOTE | 2020-12-06 15:45 | NUR ---
Patient's tele box initiated upon arrival to the unit and noted with Sinus rhythm with HR of 74. Cardizem drip turned off. Informed MD and per MD gann to hold Amiodarone drip.
[2020-12-06] MEDS ORDERED: METOPROLOL TARTRATE 25 MG TABLET PO ONE (16:00)
[2020-12-06] MEDS ORDERED: LORAZEPAM INJ 2 MG/ML VIAL IV ONE (16:00)
--- NOTE | 2020-12-06 16:10 | NUR ---
GOT BED 117-1
--- NOTE | 2020-12-06 16:19 | NUR ---
VITAL SIGNS AT THIS TIME, BP 138/89, HR 124, PT SEEN BY CHASE RIVERA. PER DR RIVERA, ADMINISTER ATIVAN AND METOPROLOL PER ORDER AT THIS TIME WILL CONTINUE TO MONITOR.
[2020-12-06] MEDS ORDERED: METOPROLOL TARTRATE 25 MG TABLET ONE (16:26)
[2020-12-06] MEDS ORDERED: LORAZEPAM INJ 2 MG/ML VIAL ONE (16:28)
[2020-12-06] MEDS ORDERED: APIXABAN 2.5 MG TABLET PO SCH (17:00)
--- NOTE | 2020-12-06 17:07 | NUR ---
REPORT GIVEN TO NURSE DANE
[2020-12-06] MEDS ORDERED: APIXABAN 5 MG TABLET PO SCH (17:12)
[2020-12-06 17:27] VITALS: BP 118/70
[2020-12-06] MEDS ORDERED: AMIODARONE 150 MG in IV D5W 100 ML IV ONE (17:30)
--- NOTE | 2020-12-06 17:35 | NUR ---
Received patient from ED at 1725. Patient on cardizem drip running to left neck. Patient is alert and oriented. No c/o pain or discomfort. Vitals stable . HR WNL. Tele box applied upon arrival. Assessments initiated.
--- NOTE | 2020-12-06 17:35 | NUR ---
PT TRANSPORTED TO [facility] ROOM 117-1 WITH ACLS PROTOCOL IN PLACE. REPORT GIVEN TO [place] NURSE FOR [facility]AMUS
[2020-12-06] MEDS ORDERED: AMIODARONE 450 MG in IV D5W 250 ML IV PRN (17:45)
--- NOTE | 2020-12-06 19:07 | NUR ---
RN CLOSING NOTES Patient is alert and oriented. Patient is breathing even and unlabored. No c/o pain or discomfort. On room air with 02 sat of 98%. Patient noted with left neck iv access, flushes well. Bruit and thrill noted to right upper arm AV fistula. Bed is in lowest and locked position. Tele box readings of SR in 60's to 70's. Endorsed to next shift for continuation of care. Call light within reach.
--- NOTE | 2020-12-06 19:50 | NUR ---
RN NOTE RECEIVED PT IN BED RESTING. PT A/O X 4 DENIES ANY PAIN OR DISCOMFORT. NO SOB AT THIS TIME. PT ON TELE MONITOR HR 70 NSR. [facility] AV FISTULA + BRUIT. SAFETY MEASURES IMPLEMENTED, SIDE RAILS UP X 2, CALL LIGHT WITHIN REACH WILL CONT TO MONITOR PT.
[2020-12-06 20:00] VITALS: BP 113/70
[2020-12-06] MEDS ORDERED: HEPARIN SODIUM, PORCINE 5000 UNITS/1 ML VIAL SQ ONE (21:00)
[2020-12-07] VITALS: BP 127/85
[2020-12-07 04:00] VITALS: BP 136/86
--- NOTE | 2020-12-07 06:24 | NUR ---
RN NOTE PT REFUSED TO HAVE LABS DRAWN PER VELVET WEAVER
--- NOTE | 2020-12-07 07:30 | NUR ---
RN OPENING NOTE PATIENT IN BED IN HIGH FOWLERS POSITION EATING BREAKFAST. PATIENT A&OX4 ABLE TO MAKE NEEDS KNOWN. NO APPARENT RESPIRATORY DISTRESS NOTED. NO SIGN AND SYMPTOM OF PAIN NOTED. TELE MONITOR ON. PATIENT LEFT NECK #20 G INTACT AND PATENT. RIGHT UPPER ARM AV FISTULA NOTED. SAFETY PRECAUTIONS IMPLEMENTED, SIDE RAILS UP X2, BED LOCKED IN LOWEST POSITION, CALL LIGHT WITHIN REACH. WILL CONTINUE TO MONITOR AND PROVIDE CARE THROUGHOUT SHIFT.
--- NOTE | 2020-12-07 07:31 | NUR ---
RN NOTE PT REMAINED STABLE DURING SHIFT. ENDORSED TO AM RN FOR CONT. OF CARE.
[2020-12-07 08:00] VITALS: BP 145/92
[2020-12-07] MEDS: SERTRALINE HCL 50 MG TABLET PO SCH (11:03)
[2020-12-07 11:15] LABS: BASOPHILS % (AUTO) 0.7 % (0.0-2.0); EOSINOPHILS % (AUTO) 3.6 % (0.0-6.0); HEMATOCRIT 30 % (39-51); HEMOGLOBIN 9.8 g/dL (13.5-17.5); LYMPHOCYTES # (AUTO) 1.3 /CMM (0.8-4.8); LYMPHOCYTES % (AUTO) 29.8 % (20.0-44.0); MEAN CORPUSCULAR HGB CONC 33 g/dl (31.0-36.0); MEAN CORPUSCULAR VOLUME 99 fL (80-96); MONOCYTES # (AUTO) 0.8 /CMM (0.1-1.30); MONOCYTES % (AUTO) 20.1 % (2.0-12.0); NEUTROPHILS # (AUTO) 1.9 /CMM (1.8-8.9); NEUTROPHILS % (AUTO) 45.8 % (43.0-81.0); PLATELET COUNT (AUTO) 163 /CMM (150-450); RED BLOOD CELL COUNT(AUTO) 3.02 MIL/uL (4.5-6.0); WHITE BLOOD COUNT (AUTO) 4.2 K/uL (4.3-11.0)
[2020-12-07 11:28] LABS: CALCIUM, SERUM 7.4 mg/dL (8.5-10.1); MAGNESIUM 2.1 mg/dL (1.8-2.4); PHOSPHORUS 5.4 mg/dL (2.5-4.9); POTASSIUM 4.5 mmol/L (3.5-5.1)
[2020-12-07 11:33] LABS: CREATININE 7.6 mg/dL (0.6-1.3)
[2020-12-07 12:00] VITALS: BP 144/90
[2020-12-07 12:55] LABS: EOSINOPHILS % (MANUAL) 3 % (0-4); LYMPHOCYTES % (MANUAL) 30 % (16-48); MONOCYTES % (MANUAL) 15 % (0-11.0); NEUTROPHILS % (MANUAL) 52 (42-76)
[2020-12-07] MEDS: LORAZEPAM 0.5 MG TABLET PO PRN (13:58)
[2020-12-07 16:00] VITALS: BP 146/90
[2020-12-07] MEDS: CALCIUM ACETATE 667 MG TABLET PO SCH (18:10)
--- NOTE | 2020-12-07 18:55 | NUR ---
RN CLOSING NOTE PATIENT RESTING IN BED IN HIGH FOWLERS POSITION. PATIENT A&OX4 ABLE TO MAKE NEEDS KNOWN. NO APPARENT RESPIRATORY DISTRESS NOTED. NO SIGN AND SYMPTOM OF PAIN NOTED. TELE MONITOR ON. PATIENT LEFT NECK #20 G INTACT AND PATENT. RIGHT UPPER ARM AV FISTULA NOTED. SAFETY PRECAUTIONS IMPLEMENTED, SIDE RAILS UP X2, BED LOCKED IN LOWEST POSITION, CALL LIGHT WITHIN REACH. WILL ENDORSE CARE TO UPCOMING SHIFT.
[2020-12-07 20:00] VITALS: BP 129/70
[2020-12-08] VITALS: BP 155/94
[2020-12-08] MEDS: LORAZEPAM 0.5 MG TABLET PO PRN (03:40)
[2020-12-08 04:00] VITALS: BP 151/90
[2020-12-08] MEDS ORDERED: LEVOTHYROXINE SODIUM 25 MCG TABLET PO SCH (07:30)
--- NOTE | 2020-12-08 07:30 | NUR ---
BAD WORK GATHERER AM NOTE PATIENT IN BED IN HIGH FOWLERS POSITION, AOX4 ABLE TO MAKE NEEDS KNOWN. ON ROOM AIR, NO SOB, RESPIRATION UNLABORED. SINUS RHYTHM, HR 72, DENIES CHEST PAIN OR DISCOMFORT, PATIENT LEFT NECK #20 G INTACT AND PATENT. RIGHT UPPER ARM AV FISTULA NOTED. SAFETY PRECAUTIONS IMPLEMENTED, SIDE RAILS UP X2, BED LOCKED IN LOWEST POSITION, CALL LIGHT WITHIN REACH. WILL CONTINUE TO MONITOR.
[2020-12-08 08:00] VITALS: BP 150/89
[2020-12-08] MEDS: CALCIUM ACETATE 667 MG TABLET PO SCH ×2 (08:01→13:20)
[2020-12-08] MEDS: SERTRALINE HCL 50 MG TABLET PO SCH (08:01)
--- NOTE | 2020-12-08 09:30 | NUR ---
RN NOTES DUE MEDS GIVEN
[2020-12-08 12:00] VITALS: BP 171/90
[2020-12-08] MEDS ORDERED: Lorazepam PO (12:52)
[2020-12-08] MEDS ORDERED: SERT50TA PO (12:52)
[2020-12-08 13:22] VITALS: BP 171/90
[2020-12-08] MEDS ORDERED: hydrALAZINE HCL 10 MG TABLET PO ONE (13:30)
--- NOTE | 2020-12-08 15:26 | NUR ---
RN NOTES PATIENT DISCHARGED TO HOME PER MD IN STABLE CONDITION. PROVIDED DC INSTRUCTIONS, HEALTH TEACHINGS, MED RECON LIST/PRESCRIPTION. PATIENT TO FOLLOW UP WITH PCP IN 1 WEEK AND TO CONTINUE WITH HD. IV ACCESS TO LEFT NECK REMOVED, PRESSURE APPLIED, NO BLEEDING, DRESSING IN PLACE. ALL BELONGINGS CHECKED AND RETURNED. ALL PAPERWORKS SIGNED. ACCOMPANIED BY JU GUERRIERBY VIA WHEELCHAIR WILL GO HOME VIA LYFT.
== END 2020-12-08 15:49 | disposition home or self-care (01) | DRG 308 ==
LOC: ER 13:05 → TELE 17:00 → TELE1 17:24 → TELE-TD 17:41 → TELE1 12-07 11:22
PROVIDERS: ADMIT Nurse Practitioner Acute Care; ATTEND Nurse Practitioner Acute Care
PROC: 5A1D70Z Performance of Urinary Filtration, Intermittent, Less than 6 Hours Per Day (ICD-10-PCS; principal; 2020-12-07)
DX: I48.91 Unspecified atrial fibrillation (principal); N18.6 End stage renal disease; E44.0 Moderate protein-calorie malnutrition; I12.0 Hypertensive chronic kidney disease with stage 5 chronic kidney disease or end stage renal disease; Z99.2 Dependence on renal dialysis; E87.5 Hyperkalemia; E03.9 Hypothyroidism, unspecified; D63.1 Anemia in chronic kidney disease; F32.9 Major depressive disorder, single episode, unspecified; F41.9 Anxiety disorder, unspecified; M89.8X9 Other specified disorders of bone, unspecified site; E88.09 Other disorders of plasma-protein metabolism, not elsewhere classified; N25.0 Renal osteodystrophy; I50.9 Heart failure, unspecified
CPT/HCPCS: 36415; 71045-TC; 80048-TC; 80053-TC; 80061-TC; 83735-TC; 83880; 84100-TC; 84443-TC; 84484-TC; 85025-TC; 85610-TC; 87081-TC; 90935-TC; 93307-TC; C9803; G0378; J0282; J2060; J3490; J7060

== ENCOUNTER → 2021-12-31 | Emergency (ER) | payer OTHER ==
[~2021-12-31] VITALS: Ht 185.4 cm; Wt 81.6 kg
[~2021-12-31] MED LIST changes: -AMLO-212 PO; +AMOX-430 PO; +HYDR-4209 PO; +HYDR-4303 PO; +HYDROCODONE/APAP 5/325MG TABLET ONE; +Lorazepam PO; +SERT50TA PO; -SEVE0.8P GT
[2021-12-31 15:58] VITALS: BP 142/90
[2021-12-31] MEDS: HYDROCODONE/APAP 5/325MG TABLET PO ONE (16:04)
--- NOTE | 2021-12-31 16:04 | NUR ---
Patient discharged to home in stable condition. Written and verbal after care instructions given. Patient verbalizes understanding of instruction.
== END | disposition home or self-care (01) ==
LOC: ER 16:08
DX: K02.9 Dental caries, unspecified (principal); I12.0 Hypertensive chronic kidney disease with stage 5 chronic kidney disease or end stage renal disease; N18.6 End stage renal disease; E03.9 Hypothyroidism, unspecified; Z99.2 Dependence on renal dialysis; Z88.8 Allergy status to other drugs, medicaments and biological substances; Z60.2 Problems related to living alone; Z79.899 Other long term (current) drug therapy

== ENCOUNTER 2023-04-30 09:51 | Inpatient (IN) | payer OTHER ==
[~2023-04-30] VITALS: Ht 185.4 cm; Wt 85.3 kg
[~2023-04-30 09:51] MED LIST changes: -HYDR-4303 PO; -HYDROCODONE/APAP 5/325MG TABLET ONE
[2023-04-30 11:24] LABS: BASOPHILS # (AUTO) 0.1 K/uL (0.0-0.2); BASOPHILS % (AUTO) 1.1 % (0.0-2.0); EOSINOPHILS # (AUTO) 0.2 K/uL (0.0-0.7); EOSINOPHILS % (AUTO) 3.6 % (0.0-6.0); HEMATOCRIT 40 % (39-51); HEMOGLOBIN 13.2 g/dL (13.5-17.5); LYMPHOCYTES # (AUTO) 0.9 K/uL (0.8-4.8); LYMPHOCYTES % (AUTO) 16.1 % (20.0-44.0); MEAN CORPUSCULAR HEMOGLOBIN 33 PG (26.0-33.0); MEAN CORPUSCULAR HGB CONC 33 g/dl (31.0-36.0); MEAN CORPUSCULAR VOLUME 98 fL (80-96); MONOCYTES # (AUTO) 0.4 K/uL (0.1-1.30); MONOCYTES % (AUTO) 7.5 % (2.0-12.0); NEUTROPHILS # (AUTO) 3.9 K/uL (1.8-8.9); NEUTROPHILS % (AUTO) 71.7 % (43.0-81.0); PLATELET COUNT (AUTO) 107 K/uL (150-450); RED BLOOD CELL COUNT(AUTO) 4.04 MIL/uL (4.5-6.0); RED CELL DISTRIBUTION WIDTH 18.2 % (11.5-15.0); WHITE BLOOD COUNT (AUTO) 5.5 K/uL (4.3-11.0)
[2023-04-30 11:28] LABS: MAGNESIUM 2.5 mg/dL (1.8-2.4)
[2023-04-30 11:33] LABS: LACTIC ACID 1.3 mmol/L (0.4-2.0); PHOSPHORUS 8.4 mg/dL (2.5-4.9)
[2023-04-30 11:57] LABS: ALANINE AMINOTRANSFERASE 22 U/L (12-78); ALBUMIN 3.9 g/dL (3.4-5.0); ALKALINE PHOSPHATASE 99 U/L (46-116); ASPARTATE AMINOTRANSFERASE 16 U/L (15-37); BILIRUBIN,TOTAL 0.5 mg/dL (0.2-1.0); CALCIUM, SERUM 9.1 mg/dL (8.5-10.1); CARBON DIOXIDE 23 mmol/L (21-32); CHLORIDE 95 mmol/L (98-107); GLUCOSE 97 mg/dL (74-106); NT-PRO BNP > 25000 pg/mL (0-125); POTASSIUM 4.9 mmol/L (3.5-5.1); SODIUM SERUM 137 mmol/L (136-145); TOTAL PROTEIN, SERUM 8.8 g/dL (6.4-8.2)
[2023-04-30 11:58] LABS: UREA NITROGEN, BLOOD 101 mg/dL (7-18)
[2023-04-30 11:59] LABS: CREATININE 12.3 mg/dL (0.6-1.3)
[2023-04-30] MEDS ORDERED: LABETALOL HCL IV 100MG VIAL IV ONE (12:30)
[2023-04-30 12:38] LABS: BILIRUBIN,DIRECT 0.1 mg/dL (0.0-0.2)
[2023-04-30] MEDS ORDERED: LABETALOL HCL IV 100MG VIAL ONE (12:51)
[2023-04-30] MEDS ORDERED: FERR210T PO (13:20)
[2023-04-30] MEDS ORDERED: CINA30TA2 PO (13:20)
[2023-04-30] MEDS ORDERED: APIXABAN 5 MG TABLET PO SCH (17:00)
[2023-04-30] MEDS ORDERED: ZOLPIDEM TARTRATE 5 MG TABLET PO PRN (17:00)
[2023-04-30] MEDS ORDERED: ACETAMINOPHEN 325 MG TABLET PO PRN (17:00)
[2023-04-30] MEDS ORDERED: METOPROLOL SUCCINATE 50 MG TAB.SR.24H PO SCH (17:00)
[2023-04-30] MEDS ORDERED: ALPRAZOLAM 0.25 MG TABLET PO PRN (17:00)
[2023-04-30] MEDS: CALCIUM ACETATE 667 MG CAP/TAB PO SCH (17:56)
[2023-04-30] MEDS ORDERED: DILTIAZEM HCL IV 125 MG in IV NS 0.9% 100 ML IV PRN (18:00)
[2023-04-30] MEDS ORDERED: DILTIAZEM HCL 25 MG IV ONE (19:43)
[2023-04-30] MEDS: HEPARIN SODIUM, PORCINE 5000 UNITS/1 ML VIAL SQ SCH (20:57)
[2023-04-30 21:06] VITALS: BP 122/78; TEMP 97.5; O2SAT 100
[2023-04-30 21:36] VITALS: BP 126/63; O2SAT 100
[2023-04-30 22:00] VITALS: BP 119/75; O2SAT 100
[2023-04-30 23:00] VITALS: BP 128/71; O2SAT 99
[2023-05-01] VITALS (14 sets, daily range): BP systolic 124–155; BP diastolic 15–85; TEMP 97.5–98.7; O2SAT 96–100
[2023-05-01 05:52] LABS: BASOPHILS % (AUTO) 0.7 % (0.0-2.0); EOSINOPHILS # (AUTO) 0.2 K/uL (0.0-0.7); EOSINOPHILS % (AUTO) 3.6 % (0.0-6.0); HEMATOCRIT 33 % (39-51); HEMOGLOBIN 11.4 g/dL (13.5-17.5); LYMPHOCYTES # (AUTO) 0.9 K/uL (0.8-4.8); LYMPHOCYTES % (AUTO) 16.8 % (20.0-44.0); MEAN CORPUSCULAR HEMOGLOBIN 33 PG (26.0-33.0); MEAN CORPUSCULAR HGB CONC 35 g/dl (31.0-36.0); MEAN CORPUSCULAR VOLUME 96 fL (80-96); MONOCYTES # (AUTO) 0.6 K/uL (0.1-1.30); MONOCYTES % (AUTO) 12.5 % (2.0-12.0); NEUTROPHILS # (AUTO) 3.4 K/uL (1.8-8.9); NEUTROPHILS % (AUTO) 66.4 % (43.0-81.0); PLATELET COUNT (AUTO) 110 K/uL (150-450); RED BLOOD CELL COUNT(AUTO) 3.42 MIL/uL (4.5-6.0); RED CELL DISTRIBUTION WIDTH 17.5 % (11.5-15.0); WHITE BLOOD COUNT (AUTO) 5.1 K/uL (4.3-11.0)
[2023-05-01 05:55] LABS: CALCIUM, SERUM 8.3 mg/dL (8.5-10.1); MAGNESIUM 2.3 mg/dL (1.8-2.4); POTASSIUM 5.8 mmol/L (3.5-5.1)
[2023-05-01 05:59] LABS: CREATININE 11.1 mg/dL (0.6-1.3)
[2023-05-01 06:15] LABS: THYROID STIMULATING HORMONE 3.498 uIU/mL (0.358-3.74)
[2023-05-01] MEDS ORDERED: LEVOTHYROXINE SODIUM 50 MCG TABLET PO SCH (07:30)
[2023-05-01] MEDS: CALCIUM ACETATE 667 MG CAP/TAB PO SCH ×2 (08:09→13:14)
[2023-05-01] MEDS: HEPARIN SODIUM, PORCINE 5000 UNITS/1 ML VIAL SQ SCH (08:10)
[2023-05-01] MEDS ORDERED: ASPI-1420 PO (08:47)
[2023-05-01] MEDS ORDERED: METO50TA7 PO ×2 (08:47→08:51)
[2023-05-02] MEDS ORDERED: CINACALCET HCL 30 MG TABLET PO SCH (09:00)
[2023-05-03 02:07] LABS: HEPATITIS B SURFACE AB Reactive (.)
== END 2023-05-01 14:45 | disposition home or self-care (01) | DRG 308 ==
LOC: ER 09:58 → TELE 14:05 → ICU 20:59
PROVIDERS: ADMIT Internal Medicine; ATTEND Internal Medicine
PROC: 5A1D70Z Performance of Urinary Filtration, Intermittent, Less than 6 Hours Per Day (ICD-10-PCS; principal; 2023-04-30)
PROC: 05HC33Z Insertion of Infusion Device into Left Basilic Vein, Percutaneous Approach (ICD-10-PCS; 2023-04-30)
DX: I48.92 Unspecified atrial flutter (principal); N18.6 End stage renal disease; I13.11 Hypertensive heart and chronic kidney disease without heart failure, with stage 5 chronic kidney disease, or end stage renal disease; Z99.2 Dependence on renal dialysis; E03.9 Hypothyroidism, unspecified; Z79.890 Hormone replacement therapy; F41.9 Anxiety disorder, unspecified; I70.0 Atherosclerosis of aorta; Z91.048 Other nonmedicinal substance allergy status; M89.8X9 Other specified disorders of bone, unspecified site; D64.9 Anemia, unspecified; I48.0 Paroxysmal atrial fibrillation; I08.0 Rheumatic disorders of both mitral and aortic valves
CPT/HCPCS: 36415; 71045-TC; 80048-TC; 80076-TC; 83605-TC; 83735-TC; 83880; 84100-TC; 84443-TC; 84484-TC; 85025-TC; 86706; 87340; 93307-TC; A4223; G0378; J1644; J3490; J7030

== ENCOUNTER 2024-05-15 17:52 | Emergency (ER) | payer OTHER, MEDICAID ==
[~2024-05-15] VITALS: Ht 185.4 cm; Wt 84.8 kg
[~2024-05-15 17:52] MED LIST changes: -AMOX-430 PO; +ASPI-1420 PO; +CINA30TA2 PO; -CLON0.1T14 PO; -HYDR-4209 PO; -Lorazepam PO; +METO50TA7 PO; -SERT50TA PO
[2024-05-15 17:59] VITALS: BP 160/61; TEMP 98.4
[2024-05-15] MEDS ORDERED: PRED50TA PO (18:55)
[2024-05-15 19:01] VITALS: O2SAT 100
== END 2024-05-15 19:02 | disposition home or self-care (01) ==
LOC: ER 17:53
DX: L30.9 Dermatitis, unspecified (principal); I12.0 Hypertensive chronic kidney disease with stage 5 chronic kidney disease or end stage renal disease; N18.6 End stage renal disease; F17.200 Nicotine dependence, unspecified, uncomplicated; E03.9 Hypothyroidism, unspecified; Z79.52 Long term (current) use of systemic steroids; Z79.82 Long term (current) use of aspirin; Z93.3 Colostomy status; Z99.2 Dependence on renal dialysis

== ENCOUNTER 2024-05-18 13:49 | Emergency (ER) | payer OTHER, MEDICAID ==
[~2024-05-18] VITALS: Ht 185.4 cm; Wt 88.0 kg
[~2024-05-18 13:49] MED LIST changes: +PRED50TA PO
[2024-05-18 14:05] VITALS: TEMP 98.6
[2024-05-18 14:43] LABS: CALCIUM, SERUM 8.3 mg/dL (8.5-10.1); CREATININE 6.9 mg/dL (0.6-1.3)
[2024-05-18] MEDS ORDERED: SODIUM ZIRCONIUM CYCLOSILICATE 10 GM POWD.PACK ONE (14:58)
[2024-05-18] MEDS: SODIUM ZIRCONIUM CYCLOSILICATE 10 GM POWD.PACK PO ONE (15:03)
[2024-05-18 15:06] VITALS: BP 148/80; O2SAT 98
[2024-05-18 15:16] LABS: BASOPHILS % (AUTO) 0.1 % (0.0-2.0); EOSINOPHILS % (AUTO) 0.1 % (0.0-6.0); HEMATOCRIT 31 % (39-51); HEMOGLOBIN 10.4 g/dL (13.5-17.5); LYMPHOCYTES # (AUTO) 0.3 K/uL (0.8-4.8); LYMPHOCYTES % (AUTO) 4.3 % (20.0-44.0); MEAN CORPUSCULAR HEMOGLOBIN 36 PG (26.0-33.0); MEAN CORPUSCULAR HGB CONC 33 g/dl (31.0-36.0); MONOCYTES # (AUTO) 0.2 K/uL (0.1-1.30); MONOCYTES % (AUTO) 2.5 % (2.0-12.0); NEUTROPHILS # (AUTO) 6.2 K/uL (1.8-8.9); PLATELET COUNT (AUTO) 156 K/uL (150-450); RED BLOOD CELL COUNT(AUTO) 2.91 MIL/uL (4.5-6.0); RED CELL DISTRIBUTION WIDTH 16.5 % (11.5-15.0)
[2024-05-18 15:20] LABS: MEAN CORPUSCULAR VOLUME 108 fL (80-96)
[2024-05-18 16:27] LABS: WHITE BLOOD COUNT (AUTO) 6.6 K/uL (4.3-11.0)
[2024-05-18 16:28] LABS: NEUTROPHILS % (MANUAL) 90 (42-76); PLATELET ESTIMATE ADEQUATE
[2024-05-18 16:29] LABS: LYMPHOCYTES % (MANUAL) 6 % (16-48); MONOCYTES % (MANUAL) 4 % (0-11.0)
== END 2024-05-18 15:11 | disposition home or self-care (01) ==
LOC: ER 14:00
DX: E87.5 Hyperkalemia (principal); I12.0 Hypertensive chronic kidney disease with stage 5 chronic kidney disease or end stage renal disease; N18.6 End stage renal disease; I51.7 Cardiomegaly; D64.9 Anemia, unspecified; E03.9 Hypothyroidism, unspecified; F19.10 Other psychoactive substance abuse, uncomplicated; Z79.52 Long term (current) use of systemic steroids; Z79.82 Long term (current) use of aspirin; Z93.3 Colostomy status; Z99.2 Dependence on renal dialysis; Z87.19 Personal history of other diseases of the digestive system; Z60.2 Problems related to living alone
CPT/HCPCS: 36415; 80048-TC; 85025-TC

== ENCOUNTER 2024-07-06 20:00 | Emergency (ER) | payer OTHER, MEDICAID ==
[~2024-07-06] VITALS: Ht 185.4 cm; Wt 80.7 kg
[2024-07-06 22:15] LABS: BASOPHILS % (AUTO) 0.5 % (0.0-2.0); EOSINOPHILS # (AUTO) 0.2 K/uL (0.0-0.7); EOSINOPHILS % (AUTO) 3.1 % (0.0-6.0); HEMATOCRIT 35 % (39-51); HEMOGLOBIN 11.2 g/dL (13.5-17.5); LYMPHOCYTES # (AUTO) 0.6 K/uL (0.8-4.8); LYMPHOCYTES % (AUTO) 11.4 % (20.0-44.0); MEAN CORPUSCULAR HEMOGLOBIN 34 PG (26.0-33.0); MEAN CORPUSCULAR HGB CONC 32 g/dl (31.0-36.0); MEAN CORPUSCULAR VOLUME 105 fL (80-96); MONOCYTES # (AUTO) 0.8 K/uL (0.1-1.30); MONOCYTES % (AUTO) 16.1 % (2.0-12.0); NEUTROPHILS # (AUTO) 3.5 K/uL (1.8-8.9); NEUTROPHILS % (AUTO) 68.9 % (43.0-81.0); PLATELET COUNT (AUTO) 141 K/uL (150-450); RED BLOOD CELL COUNT(AUTO) 3.35 MIL/uL (4.5-6.0); RED CELL DISTRIBUTION WIDTH 16.9 % (11.5-15.0)
[2024-07-06 22:22] LABS: CALCIUM, SERUM 9.2 mg/dL (8.5-10.1); CREATININE 7.5 mg/dL (0.6-1.3)
[2024-07-06 22:23] LABS: POTASSIUM 6.5 mmol/L (3.5-5.1)
[2024-07-06] MEDS ORDERED: SODIUM ZIRCONIUM CYCLOSILICATE 10 GM POWD.PACK ONE (22:48)
[2024-07-06] MEDS: SODIUM ZIRCONIUM CYCLOSILICATE 10 GM POWD.PACK PO ONE (22:51)
[2024-07-06 22:58] VITALS: BP 153/84; TEMP 98.2; O2SAT 96
[2024-07-06 23:05] LABS: BASOPHILS % (MANUAL) 0 % (0.0-2.0); EOSINOPHILS % (MANUAL) 4 % (0-4); LYMPHOCYTES % (MANUAL) 12 % (16-48); MONOCYTES % (MANUAL) 16 % (0-11.0); NEUTROPHILS % (MANUAL) 68 (42-76)
[2024-07-06 23:06] LABS: ANISOCYTOSIS 1+; PLATELET ESTIMATE DECREASED
== END 2024-07-06 22:58 | disposition home or self-care (01) ==
LOC: ER 20:38
DX: I12.0 Hypertensive chronic kidney disease with stage 5 chronic kidney disease or end stage renal disease (principal); N18.6 End stage renal disease; E87.5 Hyperkalemia; E03.9 Hypothyroidism, unspecified; R06.00 Dyspnea, unspecified; R07.9 Chest pain, unspecified; R09.89 Other specified symptoms and signs involving the circulatory and respiratory systems; Z79.52 Long term (current) use of systemic steroids; Z79.82 Long term (current) use of aspirin; Z93.3 Colostomy status; Z99.2 Dependence on renal dialysis; Z60.2 Problems related to living alone
CPT/HCPCS: 36415; 71045-TC; 80048-TC; 85025-TC

== ENCOUNTER 2024-09-13 07:31 | Inpatient (IN) | payer OTHER, MEDICAID ==
[~2024-09-13] VITALS: Ht 185.4 cm; Wt 83.1 kg
[2024-09-13] MEDS ORDERED: DILTIAZEM HCL 50 MG IV ONE (08:28)
[2024-09-13] MEDS ORDERED: Magnesium 1GM/D5W 100ML PREMIX 100 ML IV ONE (08:28)
[2024-09-13 08:33] LABS: BASOPHILS % (AUTO) 0.3 % (0.0-2.0); EOSINOPHILS % (AUTO) 0.1 % (0.0-6.0); HEMATOCRIT 34 % (39-51); HEMOGLOBIN 11.2 g/dL (13.5-17.5); LYMPHOCYTES # (AUTO) 0.1 K/uL (0.8-4.8); LYMPHOCYTES % (AUTO) 0.6 % (20.0-44.0); MEAN CORPUSCULAR HEMOGLOBIN 32 PG (26.0-33.0); MEAN CORPUSCULAR HGB CONC 33 g/dl (31.0-36.0); MEAN CORPUSCULAR VOLUME 97 fL (80-96); MONOCYTES # (AUTO) 0.4 K/uL (0.1-1.30); NEUTROPHILS # (AUTO) 17.9 K/uL (1.8-8.9); PLATELET COUNT (AUTO) 136 K/uL (150-450); RED BLOOD CELL COUNT(AUTO) 3.47 MIL/uL (4.5-6.0); RED CELL DISTRIBUTION WIDTH 16.2 % (11.5-15.0); WHITE BLOOD COUNT (AUTO) 18.4 K/uL (4.3-11.0)
[2024-09-13 08:40] LABS: CALCIUM, SERUM 9.8 mg/dL (8.5-10.1); POTASSIUM 5.2 mmol/L (3.5-5.1)
[2024-09-13] MEDS: DILTIAZEM HCL 25 MG IV IV ONE ×2 (08:42→12:53)
[2024-09-13] MEDS: Magnesium 1GM/D5W 100ML PREMIX 100 ML IV SCH (08:42)
[2024-09-13 08:45] LABS: MAGNESIUM 1.8 mg/dL (1.8-2.4); PHOSPHORUS 1.8 mg/dL (2.5-4.9)
[2024-09-13] MEDS: IV NS 0.9% 500 ML BAG IV ONE (08:45)
[2024-09-13 08:46] LABS: CREATININE 9.7 mg/dL (0.6-1.3)
[2024-09-13] MEDS: CEFEPIME 1 GM in IV D5W 50 ML IV ONE (09:41)
[2024-09-13] MEDS ORDERED: ACETAMINOPHEN ES 500 MG TABLET ONE (10:16)
[2024-09-13] MEDS: ACETAMINOPHEN ES 500 MG TABLET PO ONE (10:18)
[2024-09-13] MEDS ORDERED: METO-357 PO (11:05)
[2024-09-13 11:07] LABS: LACTIC ACID 3.5 mmol/L (0.4-2.0)
[2024-09-13] MEDS ORDERED: DILTIAZEM HCL 25 MG IV ONE (12:44)
[2024-09-13] MEDS ORDERED: MORPHINE SULFATE INJ 4 MG/ML DISP.SYRIN ONE (13:57)
[2024-09-13] MEDS: ONDANSETRON HCL/PF 4 MG/2 ML VIAL IVP PRN (13:58)
[2024-09-13] MEDS: MORPHINE SULFATE INJ 2 MG/ML DISP.SYRIN IV ONE (14:00)
[2024-09-13] MEDS ORDERED: MAG HYDROX/AL HYDROX/SIMETH 30 ML UDC PO PRN (14:00)
[2024-09-13 14:12] LABS: BILIRUBIN,DIRECT 0.5 mg/dL (0.0-0.2); BILIRUBIN,TOTAL 0.9 mg/dL (0.2-1.0); LACTIC ACID REFLEX 1.8 mmol/L (0.4-1.9)
[2024-09-13 14:15] VITALS: BP 110/75; TEMP 97.5; O2SAT 95
[2024-09-13] MEDS: METOPROLOL SUCCINATE 50 MG TAB.SR.24H PO ONE (15:40)
[2024-09-13] MEDS: K PHOS NEUTRAL 250 MG TABLET PO ONE (15:40)
[2024-09-13] MEDS: DIGOXIN INJ 0.5 MG/2 ML AMPUL IV ONE (15:41)
[2024-09-13] MEDS: APIXABAN 5 MG TABLET PO SCH (16:13)
[2024-09-13 17:00] VITALS: BP 108/69; TEMP 97.5; O2SAT 95
[2024-09-13] MEDS: ALBUMIN 25% 25 GM in PREMIX 1 EA IV PRN (17:20)
[2024-09-13] MEDS: ACETAMINOPHEN 325 MG TABLET PO PRN (18:59)
[2024-09-13] MEDS: ALPRAZOLAM 0.25 MG TABLET PO PRN (20:35)
[2024-09-13 21:00] VITALS: BP 107/74; TEMP 97.5; O2SAT 100
[2024-09-14 01:00] VITALS: BP 133/79; TEMP 99.1; O2SAT 99
[2024-09-14] MEDS: ZOLPIDEM TARTRATE 5 MG TABLET PO PRN (02:03)
[2024-09-14 05:00] VITALS: BP 93/58; TEMP 98.2; O2SAT 97
[2024-09-14] MEDS: LEVOTHYROXINE SODIUM 50 MCG TABLET PO SCH (07:58)
[2024-09-14] MEDS: Z GUARD REMEDY 4 OZ OINT TP PRN (09:54)
[2024-09-14] MEDS: CEFEPIME 1 GM in IV D5W 50 ML IV SCH (10:03)
[2024-09-14] MEDS: VANCOMYCIN 1 GM in IV D5W 250ml IV ONE (10:04)
[2024-09-14] MEDS: METOPROLOL SUCCINATE 50 MG TAB.SR.24H PO SCH (10:05)
[2024-09-14 20:00] VITALS: BP 146/89; TEMP 98.2; O2SAT 97
[2024-09-15] VITALS (57 sets, daily range): BP systolic 80–150; BP diastolic 38–118; TEMP 98–98.4; O2SAT 92–100
[2024-09-15] MEDS ORDERED: MORPHINE SULFATE 8 MG/ML VIAL IV PRN
[2024-09-15] MEDS ORDERED: MORPHINE SULFATE INJ 2 MG/ML DISP.SYRIN IV PRN (07:30)
[2024-09-15 08:34] LABS: BASOPHILS % (AUTO) 0.1 % (0.0-2.0); EOSINOPHILS # (AUTO) 0.1 K/uL (0.0-0.7); EOSINOPHILS % (AUTO) 0.4 % (0.0-6.0); HEMATOCRIT 31 % (39-51); HEMOGLOBIN 10.2 g/dL (13.5-17.5); LYMPHOCYTES # (AUTO) 0.4 K/uL (0.8-4.8); LYMPHOCYTES % (AUTO) 1.7 % (20.0-44.0); MEAN CORPUSCULAR HEMOGLOBIN 32 PG (26.0-33.0); MEAN CORPUSCULAR HGB CONC 33 g/dl (31.0-36.0); MEAN CORPUSCULAR VOLUME 98 fL (80-96); MONOCYTES # (AUTO) 2.1 K/uL (0.1-1.30); MONOCYTES % (AUTO) 9.8 % (2.0-12.0); NEUTROPHILS # (AUTO) 18.7 K/uL (1.8-8.9); PLATELET COUNT (AUTO) 86 K/uL (150-450); RED BLOOD CELL COUNT(AUTO) 3.19 MIL/uL (4.5-6.0); RED CELL DISTRIBUTION WIDTH 16.6 % (11.5-15.0); WHITE BLOOD COUNT (AUTO) 21.2 K/uL (4.3-11.0)
[2024-09-15] MEDS: METOPROLOL SUCCINATE 50 MG TAB.SR.24H PO SCH (08:35)
[2024-09-15 08:41] LABS: ALBUMIN 2.5 g/dL (3.4-5.0); BILIRUBIN,TOTAL 1.3 mg/dL (0.2-1.0); CALCIUM, SERUM 9.3 mg/dL (8.5-10.1); CREATININE 6.7 mg/dL (0.6-1.3); POTASSIUM 5.5 mmol/L (3.5-5.1); TOTAL PROTEIN, SERUM 6.5 g/dL (6.4-8.2)
[2024-09-15] MEDS: DILTIAZEM HCL IV 125 MG in IV NS 0.9% 100 ML IV PRN (10:11)
[2024-09-15] MEDS: SODIUM ZIRCONIUM CYCLOSILICATE 10 GM POWD.PACK PO ONE (10:48)
[2024-09-15 13:34] LABS: PLATELET ESTIMATE DECREASED
[2024-09-15 13:36] LABS: LYMPHOCYTES % (MANUAL) 2 % (16-48); MONOCYTES % (MANUAL) 7 % (0-11.0); NEUTROPHILS % (MANUAL) 91 (42-76)
[2024-09-15] MEDS: VANCOMYCIN POST DIALYSIS 500MG IV PRN (15:18)
[2024-09-16] VITALS (94 sets, daily range): BP systolic 92–146; BP diastolic 53–124; TEMP 97.6–98.8; O2SAT 91–100
[2024-09-16] MEDS: HYDROCODONE/APAP 5/325MG TABLET PO PRN (01:53)
[2024-09-16 04:38] LABS: BASOPHILS % (AUTO) 0.1 % (0.0-2.0); EOSINOPHILS # (AUTO) 0.1 K/uL (0.0-0.7); EOSINOPHILS % (AUTO) 0.4 % (0.0-6.0); HEMATOCRIT 28 % (39-51); HEMOGLOBIN 9.4 g/dL (13.5-17.5); LYMPHOCYTES # (AUTO) 0.5 K/uL (0.8-4.8); LYMPHOCYTES % (AUTO) 3.2 % (20.0-44.0); MEAN CORPUSCULAR HEMOGLOBIN 33 PG (26.0-33.0); MEAN CORPUSCULAR HGB CONC 34 g/dl (31.0-36.0); MEAN CORPUSCULAR VOLUME 98 fL (80-96); MONOCYTES # (AUTO) 1.7 K/uL (0.1-1.30); MONOCYTES % (AUTO) 10.1 % (2.0-12.0); NEUTROPHILS # (AUTO) 14.1 K/uL (1.8-8.9); NEUTROPHILS % (AUTO) 86.2 % (43.0-81.0); PLATELET COUNT (AUTO) 109 K/uL (150-450); RED BLOOD CELL COUNT(AUTO) 2.88 MIL/uL (4.5-6.0); RED CELL DISTRIBUTION WIDTH 16.3 % (11.5-15.0); WHITE BLOOD COUNT (AUTO) 16.4 K/uL (4.3-11.0)
[2024-09-16 04:59] LABS: ALBUMIN 2.4 g/dL (3.4-5.0); BILIRUBIN,TOTAL 1.3 mg/dL (0.2-1.0); CALCIUM, SERUM 9.3 mg/dL (8.5-10.1); CREATININE 5.6 mg/dL (0.6-1.3); MAGNESIUM 2.3 mg/dL (1.8-2.4); POTASSIUM 4.4 mmol/L (3.5-5.1); TOTAL PROTEIN, SERUM 6.6 g/dL (6.4-8.2)
[2024-09-16] MEDS: DILTIAZEM HCL IV 125 MG in IV NS 0.9% 100 ML IV PRN (10:01)
[2024-09-16] MEDS: OLANZAPINE 10 MG VIAL IM PRN (20:17)
[2024-09-17] VITALS (52 sets, daily range): BP systolic 97–136; BP diastolic 54–95; TEMP 97.8–99; O2SAT 90–100
[2024-09-17 07:13] LABS: CREATININE 6.9 mg/dL (0.6-1.3); POTASSIUM 4.8 mmol/L (3.5-5.1)
[2024-09-17] MEDS: APIXABAN 5 MG TABLET PO SCH (09:00)
[2024-09-17] MEDS: METOPROLOL SUCCINATE 50 MG TAB.SR.24H PO SCH (09:00)
[2024-09-17] MEDS: CEFAZOLIN 1 GM in IV D5W 50 ML IV SCH (09:27)
[2024-09-17 14:31] LABS: HIV-1 p24 ANTIGEN NON REACTIVE (NONREACTIVE); HIV-1/2 ANTIBODY NON REACTIVE (NONREACTIVE)
[2024-09-18] VITALS (56 sets, daily range): BP systolic 105–148; BP diastolic 44–83; TEMP 97.2–98.2; O2SAT 91–100
[2024-09-18 01:07] LABS: HEPATITIS B SURFACE AB (QUAL) Reactive (.)
[2024-09-18] MEDS: DILTIAZEM HCL 30 MG TABLET PO SCH (05:50)
[2024-09-18 06:56] LABS: BASOPHILS # (AUTO) 0.1 K/uL (0.0-0.2); BASOPHILS % (AUTO) 0.4 % (0.0-2.0); EOSINOPHILS # (AUTO) 0.1 K/uL (0.0-0.7); EOSINOPHILS % (AUTO) 0.4 % (0.0-6.0); HEMATOCRIT 32 % (39-51); HEMOGLOBIN 10.2 g/dL (13.5-17.5); LYMPHOCYTES % (AUTO) 4.4 % (20.0-44.0); MEAN CORPUSCULAR HEMOGLOBIN 32 PG (26.0-33.0); MEAN CORPUSCULAR HGB CONC 32 g/dl (31.0-36.0); MEAN CORPUSCULAR VOLUME 101 fL (80-96); MONOCYTES # (AUTO) 2.5 K/uL (0.1-1.30); NEUTROPHILS # (AUTO) 18.7 K/uL (1.8-8.9); NEUTROPHILS % (AUTO) 83.8 % (43.0-81.0); PLATELET COUNT (AUTO) 230 K/uL (150-450); RED BLOOD CELL COUNT(AUTO) 3.16 MIL/uL (4.5-6.0); RED CELL DISTRIBUTION WIDTH 17.5 % (11.5-15.0); WHITE BLOOD COUNT (AUTO) 22.3 K/uL (4.3-11.0)
[2024-09-18 07:13] LABS: CALCIUM, SERUM 9.1 mg/dL (8.5-10.1); CREATININE 5.9 mg/dL (0.6-1.3)
[2024-09-18 07:18] LABS: POTASSIUM 5.4 mmol/L (3.5-5.1)
[2024-09-18] MEDS ORDERED: DILTIAZEM HCL IV 125 MG in IV NS 0.9% 100 ML IV PRN (09:30)
[2024-09-18] MEDS ORDERED: FUROSEMIDE 20 MG/2 ML VIAL IV SCH (09:30)
[2024-09-18 10:03] LABS: ABG BASE EXCESS -1.6 mmol/L (-2.0-3.0); ABG OXYGEN SATURATION 93.4 % (94.0-98.0); ABG PCO2 26.2 mmHg (35.0-48.0); ABG PO2 69.5 mmHg (83.0-108.0); ABG TOTAL HEMOGLOBIN 10.7 G/dL (13.5-17.5); COHb 0.3 % (0.5-1.5); O2Hb 93.1 % (94.0-97.0); SITE, ABG LEFT RADIAL
[2024-09-18] MEDS: DILTIAZEM HCL IV 125 MG in IV NS 0.9% 100 ML IV PRN (10:45)
[2024-09-18] MEDS: ALBUMIN 25% 25 GM in PREMIX 1 EA IV ONE (11:15)
[2024-09-18] MEDS ORDERED: NS 0.9% IV SCH (12:00)
[2024-09-18] MEDS ORDERED: NAFCILLIN IV SCH (12:00)
[2024-09-18] MEDS: NS 0.9% IV SCH (12:18)
[2024-09-18] MEDS: NAFCILLIN IV SCH (12:18)
[2024-09-19] VITALS (77 sets, daily range): BP systolic 99–166; BP diastolic 50–90; TEMP 97.4–98.7; O2SAT 91–99
[2024-09-19 04:02] LABS: BASOPHILS % (AUTO) 0.1 % (0.0-2.0); EOSINOPHILS # (AUTO) 0.1 K/uL (0.0-0.7); EOSINOPHILS % (AUTO) 0.4 % (0.0-6.0); HEMATOCRIT 29 % (39-51); HEMOGLOBIN 9.3 g/dL (13.5-17.5); LYMPHOCYTES # (AUTO) 0.5 K/uL (0.8-4.8); LYMPHOCYTES % (AUTO) 3.6 % (20.0-44.0); MEAN CORPUSCULAR HEMOGLOBIN 33 PG (26.0-33.0); MEAN CORPUSCULAR HGB CONC 33 g/dl (31.0-36.0); MEAN CORPUSCULAR VOLUME 100 fL (80-96); MONOCYTES # (AUTO) 0.9 K/uL (0.1-1.30); MONOCYTES % (AUTO) 6.6 % (2.0-12.0); NEUTROPHILS # (AUTO) 12.5 K/uL (1.8-8.9); NEUTROPHILS % (AUTO) 89.3 % (43.0-81.0); PLATELET COUNT (AUTO) 211 K/uL (150-450); RED BLOOD CELL COUNT(AUTO) 2.85 MIL/uL (4.5-6.0); RED CELL DISTRIBUTION WIDTH 17.1 % (11.5-15.0)
[2024-09-19 04:29] LABS: CALCIUM, SERUM 9.5 mg/dL (8.5-10.1); CREATININE 5.1 mg/dL (0.6-1.3)
[2024-09-19] MEDS: AMIODARONE HCL 200 MG TABLET PO SCH (10:03)
[2024-09-20] VITALS (42 sets, daily range): BP systolic 98–181; BP diastolic 64–97; TEMP 98–99.1; O2SAT 90–100
[2024-09-20 05:02] LABS: CALCIUM, SERUM 8.5 mg/dL (8.5-10.1); CREATININE 4.9 mg/dL (0.6-1.3)
[2024-09-20] MEDS ORDERED: OLANZAPINE 10 MG VIAL IM PRN (09:00)
[2024-09-21] VITALS (19 sets, daily range): BP systolic 99–124; BP diastolic 61–80; TEMP 97.9–98.6; O2SAT 94–100
[2024-09-21 04:35] LABS: CALCIUM, SERUM 8.7 mg/dL (8.5-10.1); CREATININE 4.5 mg/dL (0.6-1.3); POTASSIUM 4.7 mmol/L (3.5-5.1)
[2024-09-21 04:42] LABS: BASOPHILS % (AUTO) 0.1 % (0.0-2.0); EOSINOPHILS # (AUTO) 0.1 K/uL (0.0-0.7); EOSINOPHILS % (AUTO) 0.8 % (0.0-6.0); HEMATOCRIT 31 % (39-51); LYMPHOCYTES # (AUTO) 0.7 K/uL (0.8-4.8); LYMPHOCYTES % (AUTO) 5.1 % (20.0-44.0); MEAN CORPUSCULAR HEMOGLOBIN 33 PG (26.0-33.0); MEAN CORPUSCULAR HGB CONC 32 g/dl (31.0-36.0); MEAN CORPUSCULAR VOLUME 101 fL (80-96); MONOCYTES # (AUTO) 0.6 K/uL (0.1-1.30); MONOCYTES % (AUTO) 4.1 % (2.0-12.0); NEUTROPHILS # (AUTO) 12.5 K/uL (1.8-8.9); NEUTROPHILS % (AUTO) 89.9 % (43.0-81.0); PLATELET COUNT (AUTO) 264 K/uL (150-450); RED BLOOD CELL COUNT(AUTO) 3.09 MIL/uL (4.5-6.0); RED CELL DISTRIBUTION WIDTH 18.6 % (11.5-15.0); WHITE BLOOD COUNT (AUTO) 13.9 K/uL (4.3-11.0)
[2024-09-22] VITALS: BP 113/69; TEMP 98.1; O2SAT 98
[2024-09-22 07:00] VITALS: BP 132/81; TEMP 98.1; O2SAT 96
[2024-09-22 07:35] LABS: CALCIUM, SERUM 9.5 mg/dL (8.5-10.1); CREATININE 4.2 mg/dL (0.6-1.3); POTASSIUM 3.9 mmol/L (3.5-5.1)
[2024-09-22 07:40] LABS: BASOPHILS % (AUTO) 0.2 % (0.0-2.0); EOSINOPHILS # (AUTO) 0.1 K/uL (0.0-0.7); EOSINOPHILS % (AUTO) 0.7 % (0.0-6.0); HEMATOCRIT 29 % (39-51); HEMOGLOBIN 9.4 g/dL (13.5-17.5); LYMPHOCYTES # (AUTO) 0.5 K/uL (0.8-4.8); LYMPHOCYTES % (AUTO) 4.1 % (20.0-44.0); MEAN CORPUSCULAR HEMOGLOBIN 33 PG (26.0-33.0); MEAN CORPUSCULAR HGB CONC 32 g/dl (31.0-36.0); MEAN CORPUSCULAR VOLUME 102 fL (80-96); MONOCYTES # (AUTO) 0.5 K/uL (0.1-1.30); MONOCYTES % (AUTO) 3.7 % (2.0-12.0); NEUTROPHILS # (AUTO) 11.8 K/uL (1.8-8.9); NEUTROPHILS % (AUTO) 91.3 % (43.0-81.0); PLATELET COUNT (AUTO) 219 K/uL (150-450); RED BLOOD CELL COUNT(AUTO) 2.85 MIL/uL (4.5-6.0); RED CELL DISTRIBUTION WIDTH 18.5 % (11.5-15.0)
[2024-09-22 12:00] VITALS: BP 121/65; TEMP 98.4; O2SAT 95
[2024-09-22 16:00] VITALS: BP 138/78; TEMP 98.2; O2SAT 97
[2024-09-22] MEDS ORDERED: EPINEPHRINE (1:10,000) SYRINGE 1 MG/10 ML DISP.SYRIN IVP ONE (19:05)
[2024-09-22] MEDS: NALOXONE HCL 0.4 MG/ML AMPUL ONE (19:23)
[2024-09-22 20:00] VITALS: BP 100/70; TEMP 97.9; O2SAT 99
[2024-09-23] VITALS: BP 99/64; TEMP 97.5; O2SAT 97
[2024-09-23 04:00] VITALS: BP 106/60; TEMP 98.1; O2SAT 94
[2024-09-24 04:17] VITALS: BP 95/60; TEMP 97.5; O2SAT 100
[2024-09-24 06:38] LABS: OCCULT BLOOD STOOL POSITIVE (NEGATIVE)
[2024-09-24 07:04] LABS: BASOPHILS % (AUTO) 0.3 % (0.0-2.0); EOSINOPHILS # (AUTO) 0.2 K/uL (0.0-0.7); EOSINOPHILS % (AUTO) 1.1 % (0.0-6.0); HEMATOCRIT 27 % (39-51); HEMOGLOBIN 8.7 g/dL (13.5-17.5); LYMPHOCYTES # (AUTO) 0.5 K/uL (0.8-4.8); LYMPHOCYTES % (AUTO) 3.6 % (20.0-44.0); MEAN CORPUSCULAR HEMOGLOBIN 33 PG (26.0-33.0); MEAN CORPUSCULAR HGB CONC 33 g/dl (31.0-36.0); MEAN CORPUSCULAR VOLUME 101 fL (80-96); MONOCYTES # (AUTO) 0.8 K/uL (0.1-1.30); MONOCYTES % (AUTO) 5.3 % (2.0-12.0); NEUTROPHILS # (AUTO) 13.2 K/uL (1.8-8.9); NEUTROPHILS % (AUTO) 89.7 % (43.0-81.0); PLATELET COUNT (AUTO) 177 K/uL (150-450); RED BLOOD CELL COUNT(AUTO) 2.63 MIL/uL (4.5-6.0); RED CELL DISTRIBUTION WIDTH 18.8 % (11.5-15.0); WHITE BLOOD COUNT (AUTO) 14.7 K/uL (4.3-11.0)
[2024-09-24 07:12] LABS: CREATININE 7.1 mg/dL (0.6-1.3); POTASSIUM 5.6 mmol/L (3.5-5.1)
[2024-09-24 20:00] VITALS: BP_SYST 124; BP_DIAS 57; BP_DIAS 62; TEMP 97.5; O2SAT 100
[2024-09-25] VITALS: BP_SYST 136; BP_DIAS 65; BP_DIAS 79; TEMP 97.1; O2SAT 100
[2024-09-25 04:00] VITALS: BP 136/65; TEMP 97.5; O2SAT 100
[2024-09-25 08:00] VITALS: BP 140/71; TEMP 97.3; O2SAT 100
[2024-09-25 12:00] VITALS: BP 142/63; TEMP 97.9; O2SAT 100
[2024-09-25 17:00] VITALS: BP 134/64; TEMP 97.3; O2SAT 100
[2024-09-25 20:00] VITALS: BP 110/67; TEMP 98.2; O2SAT 98
[2024-09-26] VITALS: BP 108/75; TEMP 98.4; O2SAT 98
[2024-09-26 04:00] VITALS: BP 111/77; TEMP 98.1; O2SAT 98
[2024-09-26 07:23] LABS: BASOPHILS % (AUTO) 0.3 % (0.0-2.0); EOSINOPHILS % (AUTO) 0.3 % (0.0-6.0); HEMATOCRIT 25 % (39-51); HEMOGLOBIN 8.3 g/dL (13.5-17.5); LYMPHOCYTES # (AUTO) 0.3 K/uL (0.8-4.8); LYMPHOCYTES % (AUTO) 2.6 % (20.0-44.0); MEAN CORPUSCULAR HEMOGLOBIN 33 PG (26.0-33.0); MEAN CORPUSCULAR HGB CONC 33 g/dl (31.0-36.0); MEAN CORPUSCULAR VOLUME 100 fL (80-96); MONOCYTES # (AUTO) 0.8 K/uL (0.1-1.30); MONOCYTES % (AUTO) 6.9 % (2.0-12.0); NEUTROPHILS # (AUTO) 10.3 K/uL (1.8-8.9); NEUTROPHILS % (AUTO) 89.9 % (43.0-81.0); PLATELET COUNT (AUTO) 174 K/uL (150-450); RED CELL DISTRIBUTION WIDTH 18.5 % (11.5-15.0); WHITE BLOOD COUNT (AUTO) 11.5 K/uL (4.3-11.0)
[2024-09-26] MEDS ORDERED: AMIO200T7 PO (08:50)
[2024-09-26] MEDS ORDERED: DAPT500V2 IV (08:50)
[2024-09-26] MEDS ORDERED: APIX5TAB PO (08:50)
[2024-09-26] MEDS ORDERED: DAPTOMYCIN 500 MG in IV NS 0.9% 50 ML IV ONE (09:00)
[2024-09-26 09:17] LABS: CREATININE 4.7 mg/dL (0.6-1.3); POTASSIUM 5.4 mmol/L (3.5-5.1)
[2024-09-26] MEDS: FUROSEMIDE 40 MG/4 ML VIAL IV ONE (12:47)
[2024-09-26] MEDS ORDERED: PIPERACILLIN /TAZOBACTAM 4.5 G in IV D5W 100 ML IV SCH (13:00)
[2024-09-26] MEDS: PIPERACILLIN /TAZOBACTAM 2.25 G in IV D5W 50 ML IV SCH (15:03)
[2024-09-26 20:30] VITALS: BP 108/81; TEMP 97.3; O2SAT 100
[2024-09-26 22:15] VITALS: BP 96/58; O2SAT 94
[2024-09-26 23:20] VITALS: BP 133/70; O2SAT 100
[2024-09-27 07:00] VITALS: BP 118/76; TEMP 97.5; O2SAT 93
[2024-09-27 07:02] LABS: BASOPHILS % (AUTO) 0.4 % (0.0-2.0); EOSINOPHILS % (AUTO) 0.4 % (0.0-6.0); HEMATOCRIT 26 % (39-51); HEMOGLOBIN 8.5 g/dL (13.5-17.5); LYMPHOCYTES # (AUTO) 0.5 K/uL (0.8-4.8); LYMPHOCYTES % (AUTO) 4.5 % (20.0-44.0); MEAN CORPUSCULAR HEMOGLOBIN 33 PG (26.0-33.0); MEAN CORPUSCULAR HGB CONC 33 g/dl (31.0-36.0); MEAN CORPUSCULAR VOLUME 101 fL (80-96); MONOCYTES # (AUTO) 0.8 K/uL (0.1-1.30); MONOCYTES % (AUTO) 6.9 % (2.0-12.0); NEUTROPHILS # (AUTO) 9.8 K/uL (1.8-8.9); NEUTROPHILS % (AUTO) 87.8 % (43.0-81.0); PLATELET COUNT (AUTO) 212 K/uL (150-450); RED BLOOD CELL COUNT(AUTO) 2.57 MIL/uL (4.5-6.0); RED CELL DISTRIBUTION WIDTH 18.7 % (11.5-15.0); WHITE BLOOD COUNT (AUTO) 11.1 K/uL (4.3-11.0)
[2024-09-27 07:06] LABS: CALCIUM, SERUM 9.3 mg/dL (8.5-10.1); CREATININE 4.4 mg/dL (0.6-1.3)
[2024-09-27 07:39] LABS: POTASSIUM 6.2 mmol/L (3.5-5.1)
[2024-09-27] MEDS: ZOSYN IVPB 2.25 G in IV D5W 50ml IV SCH (11:14)
[2024-09-27 11:30] VITALS: BP 105/77; TEMP 97.5; O2SAT 95
[2024-09-27 12:30] VITALS: BP 106/57; TEMP 98.2; O2SAT 95
[2024-09-27 16:00] VITALS: BP 118/74; TEMP 97.3; O2SAT 94
[2024-09-27 20:46] VITALS: BP 94/63; TEMP 98.1; O2SAT 94
[2024-09-28] VITALS: BP 108/64; TEMP 97.7; O2SAT 97
[2024-09-28 04:00] VITALS: BP 99/58; TEMP 97.9; O2SAT 97
[2024-09-28 08:00] VITALS: BP 128/90; TEMP 97.7; O2SAT 95
[2024-09-28 11:51] LABS: BASOPHILS # (AUTO) 0.1 K/uL (0.0-0.2); BASOPHILS % (AUTO) 0.7 % (0.0-2.0); EOSINOPHILS % (AUTO) 0.3 % (0.0-6.0); HEMATOCRIT 26 % (39-51); HEMOGLOBIN 8.4 g/dL (13.5-17.5); LYMPHOCYTES # (AUTO) 0.7 K/uL (0.8-4.8); LYMPHOCYTES % (AUTO) 5.4 % (20.0-44.0); MEAN CORPUSCULAR HEMOGLOBIN 32 PG (26.0-33.0); MEAN CORPUSCULAR HGB CONC 32 g/dl (31.0-36.0); MEAN CORPUSCULAR VOLUME 100 fL (80-96); MONOCYTES # (AUTO) 1.1 K/uL (0.1-1.30); MONOCYTES % (AUTO) 8.4 % (2.0-12.0); NEUTROPHILS # (AUTO) 10.8 K/uL (1.8-8.9); NEUTROPHILS % (AUTO) 85.2 % (43.0-81.0); PLATELET COUNT (AUTO) 322 K/uL (150-450); RED BLOOD CELL COUNT(AUTO) 2.63 MIL/uL (4.5-6.0); RED CELL DISTRIBUTION WIDTH 18.5 % (11.5-15.0); WHITE BLOOD COUNT (AUTO) 12.7 K/uL (4.3-11.0)
[2024-09-28 12:00] VITALS: BP 115/74; TEMP 97.9; TEMP 98.5; O2SAT 96
[2024-09-28 12:06] LABS: ALBUMIN 2.5 g/dL (3.4-5.0); BILIRUBIN,TOTAL 2.2 mg/dL (0.2-1.0); CALCIUM, SERUM 9.4 mg/dL (8.5-10.1); CREATININE 4.9 mg/dL (0.6-1.3); MAGNESIUM 2.2 mg/dL (1.8-2.4); PHOSPHORUS 5.3 mg/dL (2.5-4.9); POTASSIUM 5.3 mmol/L (3.5-5.1); TOTAL PROTEIN, SERUM 6.9 g/dL (6.4-8.2)
[2024-09-28 14:30] VITALS: BP 109/77; TEMP 97.9; O2SAT 96
[2024-09-28] MEDS: diphenhydrAMINE HCL ELIX 25 MG/10 ML UDC PO PRN (16:24)
[2024-09-28 20:00] VITALS: BP 114/72; TEMP 97.5; O2SAT 95
[2024-09-29] VITALS: BP 114/79; TEMP 97.5; O2SAT 96
[2024-09-29 04:00] VITALS: BP 126/68; TEMP 98.1; O2SAT 98
[2024-09-29 07:23] LABS: BASOPHILS # (AUTO) 0.1 K/uL (0.0-0.2); BASOPHILS % (AUTO) 0.8 % (0.0-2.0); EOSINOPHILS # (AUTO) 0.1 K/uL (0.0-0.7); EOSINOPHILS % (AUTO) 0.5 % (0.0-6.0); HEMATOCRIT 25 % (39-51); HEMOGLOBIN 8.4 g/dL (13.5-17.5); LYMPHOCYTES # (AUTO) 0.9 K/uL (0.8-4.8); LYMPHOCYTES % (AUTO) 6.9 % (20.0-44.0); MEAN CORPUSCULAR HEMOGLOBIN 33 PG (26.0-33.0); MEAN CORPUSCULAR HGB CONC 33 g/dl (31.0-36.0); MEAN CORPUSCULAR VOLUME 101 fL (80-96); MONOCYTES % (AUTO) 7.5 % (2.0-12.0); NEUTROPHILS # (AUTO) 10.8 K/uL (1.8-8.9); NEUTROPHILS % (AUTO) 84.3 % (43.0-81.0); PLATELET COUNT (AUTO) 303 K/uL (150-450); RED BLOOD CELL COUNT(AUTO) 2.51 MIL/uL (4.5-6.0); RED CELL DISTRIBUTION WIDTH 18.1 % (11.5-15.0); WHITE BLOOD COUNT (AUTO) 12.8 K/uL (4.3-11.0)
[2024-09-29 08:12] LABS: CALCIUM, SERUM 9.4 mg/dL (8.5-10.1); CREATININE 4.7 mg/dL (0.6-1.3); POTASSIUM 5.5 mmol/L (3.5-5.1)
[2024-09-29] MEDS ORDERED: SODIUM ZIRCONIUM CYCLOSILICATE 10 GM POWD.PACK PO SCH (10:30)
[2024-09-29] MEDS: diphenhydrAMINE HCL 50 MG/ML VIAL IV PRN (11:28)
[2024-09-29 13:30] VITALS: BP 103/73; TEMP 97.9; O2SAT 95
[2024-09-29 16:00] VITALS: BP 107/87; TEMP 97.3; O2SAT 95
[2024-09-29 20:00] VITALS: BP 103/61; TEMP 97.9; O2SAT 96
[2024-09-30] VITALS: BP 133/80; TEMP 97.8; O2SAT 94
[2024-09-30 07:42] LABS: BASOPHILS # (AUTO) 0.1 K/uL (0.0-0.2); BASOPHILS % (AUTO) 0.7 % (0.0-2.0); EOSINOPHILS % (AUTO) 0.2 % (0.0-6.0); HEMATOCRIT 26 % (39-51); HEMOGLOBIN 8.4 g/dL (13.5-17.5); LYMPHOCYTES # (AUTO) 0.9 K/uL (0.8-4.8); LYMPHOCYTES % (AUTO) 5.2 % (20.0-44.0); MEAN CORPUSCULAR HEMOGLOBIN 33 PG (26.0-33.0); MEAN CORPUSCULAR HGB CONC 32 g/dl (31.0-36.0); MEAN CORPUSCULAR VOLUME 102 fL (80-96); MONOCYTES # (AUTO) 1.4 K/uL (0.1-1.30); MONOCYTES % (AUTO) 8.2 % (2.0-12.0); NEUTROPHILS # (AUTO) 14.9 K/uL (1.8-8.9); NEUTROPHILS % (AUTO) 85.7 % (43.0-81.0); PLATELET COUNT (AUTO) 321 K/uL (150-450); RED BLOOD CELL COUNT(AUTO) 2.55 MIL/uL (4.5-6.0); RED CELL DISTRIBUTION WIDTH 18.9 % (11.5-15.0); WHITE BLOOD COUNT (AUTO) 17.4 K/uL (4.3-11.0)
[2024-09-30 07:58] LABS: ALBUMIN 2.5 g/dL (3.4-5.0); BILIRUBIN,TOTAL 2.8 mg/dL (0.2-1.0); CALCIUM, SERUM 9.4 mg/dL (8.5-10.1); CREATININE 5.3 mg/dL (0.6-1.3); MAGNESIUM 2.4 mg/dL (1.8-2.4); PHOSPHORUS 6.4 mg/dL (2.5-4.9); TOTAL PROTEIN, SERUM 7.2 g/dL (6.4-8.2)
[2024-09-30 09:07] VITALS: BP 86/56; TEMP 98; O2SAT 95
[2024-09-30] MEDS: SODIUM ZIRCONIUM CYCLOSILICATE 10 GM POWD.PACK PO SCH (09:13)
[2024-09-30] MEDS: AMIODARONE HCL 200 MG TABLET PO SCH (09:19)
[2024-09-30 16:27] VITALS: BP 110/60; TEMP 97.6; O2SAT 96
[2024-09-30 19:10] LABS: CALCIUM, SERUM 9.5 mg/dL (8.5-10.1); CREATININE 3.4 mg/dL (0.6-1.3); POTASSIUM 4.2 mmol/L (3.5-5.1)
[2024-09-30 21:00] VITALS: BP 127/64; TEMP 100.4; O2SAT 96
[2024-10-01] VITALS (86 sets, daily range): BP systolic 55–154; BP diastolic 29–116; TEMP 98.4–102.6; O2SAT 71–100
[2024-10-01] MEDS: DEXTROSE 50%-WATER 50 ML DISP.SYRIN ONE ×2 (03:04→08:30)
[2024-10-01] MEDS: NALOXONE HCL 0.4 MG/ML AMPUL ONE (03:11)
[2024-10-01] MEDS: NOREPINEPHRINE 4 MG/4 ML AMPUL IV ONE (04:36)
[2024-10-01] MEDS: NOREPINEPHRINE 32 MG in IV NS 0.9% 218 ML IV PRN (04:44)
[2024-10-01 06:09] LABS: ABG BASE EXCESS -9.3 mmol/L (-2.0-3.0); ABG OXYGEN SATURATION 99.9 % (94.0-98.0); ABG PCO2 24.2 mmHg (35.0-48.0); ABG PH 7.391 (7.350-7.450); ABG PO2 412.4 mmHg (83.0-108.0); COHb 0.2 % (0.5-1.5); MetHb 0.2 % (0.0-1.5); O2Hb 99.5 % (94.0-97.0); SITE, ABG LEFT BRACHIAL; VT, ABG 500 mL
[2024-10-01] MEDS: DEXTROSE 50%-WATER 50 ML DISP.SYRIN IVP ONE ×2 (08:30→09:04)
[2024-10-01] MEDS ORDERED: Sodium Chloride 77 MEQ in IV 10% DEXTROSE 1,000 ML IV PRN (09:00)
[2024-10-01] MEDS: PROPOFOL 100 ML IV PRN (09:04)
[2024-10-01] MEDS: IV 10% DEXTROSE 1,000 ML IV PRN (09:29)
[2024-10-01] MEDS ORDERED: CALCIUM CHLORIDE 1,000 MG/10 ML DISP.SYRIN IV ONE (09:32)
[2024-10-01 18:17] LABS: ALANINE AMINOTRANSFERASE 3180 U/L (12-78); ALBUMIN 2.9 g/dL (3.4-5.0); ALKALINE PHOSPHATASE 230 U/L (46-116); BILIRUBIN,TOTAL 5.4 mg/dL (0.2-1.0); CALCIUM, SERUM 8.6 mg/dL (8.5-10.1); CARBON DIOXIDE 17 mmol/L (21-32); CHLORIDE 97 mmol/L (98-107); CREATININE 5.9 mg/dL (0.6-1.3); GLUCOSE 58 mg/dL (74-106); MAGNESIUM 2.6 mg/dL (1.8-2.4); SODIUM SERUM 140 mmol/L (136-145); TOTAL PROTEIN, SERUM 7.2 g/dL (6.4-8.2); UREA NITROGEN, BLOOD 53 mg/dL (7-18)
[2024-10-01 20:05] LABS: POTASSIUM 7.3 mmol/L (3.5-5.1)
[2024-10-01 20:06] LABS: PHOSPHORUS 8.1 mg/dL (2.5-4.9)
[2024-10-01 20:19] LABS: ASPARTATE AMINOTRANSFERASE > 1000 U/L (15-37)
[2024-10-01] MEDS: SODIUM POLYSTYRENE SULFONATE 15 G/60 ML BOTTLE NG ONE (20:57)
[2024-10-01] MEDS: SODIUM BICARBONATE SYR 50 MEQ/50 ML DISP.SYRIN IV ONE (21:48)
[2024-10-01] MEDS: ALBUMIN 25% 100 ML IV ONE (21:51)
[2024-10-02] VITALS (103 sets, daily range): BP systolic 59–113; BP diastolic 38–76; TEMP 99.6–102.4; O2SAT 95–100
[2024-10-02 04:20] LABS: BASOPHILS # (AUTO) 0.2 K/uL (0.0-0.2); BASOPHILS % (AUTO) 1.1 % (0.0-2.0); EOSINOPHILS # (AUTO) 0.2 K/uL (0.0-0.7); EOSINOPHILS % (AUTO) 1.1 % (0.0-6.0); HEMATOCRIT 25 % (39-51); HEMOGLOBIN 8.3 g/dL (13.5-17.5); LYMPHOCYTES # (AUTO) 0.3 K/uL (0.8-4.8); LYMPHOCYTES % (AUTO) 1.9 % (20.0-44.0); MEAN CORPUSCULAR HEMOGLOBIN 35 PG (26.0-33.0); MEAN CORPUSCULAR HGB CONC 33 g/dl (31.0-36.0); MEAN CORPUSCULAR VOLUME 105 fL (80-96); MONOCYTES # (AUTO) 0.1 K/uL (0.1-1.30); MONOCYTES % (AUTO) 0.9 % (2.0-12.0); NEUTROPHILS # (AUTO) 13.8 K/uL (1.8-8.9); PLATELET COUNT (AUTO) 160 K/uL (150-450); RED BLOOD CELL COUNT(AUTO) 2.41 MIL/uL (4.5-6.0); RED CELL DISTRIBUTION WIDTH 18.8 % (11.5-15.0); WHITE BLOOD COUNT (AUTO) 14.5 K/uL (4.3-11.0)
[2024-10-02 04:41] LABS: ALBUMIN 2.8 g/dL (3.4-5.0); ALKALINE PHOSPHATASE 213 U/L (46-116); BILIRUBIN,TOTAL 5.4 mg/dL (0.2-1.0); CALCIUM, SERUM 8.2 mg/dL (8.5-10.1); CARBON DIOXIDE 26 mmol/L (21-32); CHLORIDE 99 mmol/L (98-107); CREATININE 4.8 mg/dL (0.6-1.3); GLUCOSE 96 mg/dL (74-106); POTASSIUM 3.3 mmol/L (3.5-5.1); SODIUM SERUM 144 mmol/L (136-145); TOTAL PROTEIN, SERUM 6.6 g/dL (6.4-8.2); UREA NITROGEN, BLOOD 39 mg/dL (7-18)
[2024-10-02 05:54] LABS: ASPARTATE AMINOTRANSFERASE > 1000 U/L (15-37)
[2024-10-02 06:05] LABS: ALANINE AMINOTRANSFERASE 4986 U/L (12-78)
[2024-10-02] MEDS ORDERED: DIGOXIN INJ 0.5 MG/2 ML AMPUL IV ONE (09:30)
[2024-10-02] MEDS: DIGOXIN INJ 0.5 MG/2 ML AMPUL IV ONE (09:52)
[2024-10-02] MEDS ORDERED: NEPRO 1,000 ML BOTTLE GT PRN ×2 (10:00→10:30)
[2024-10-02 11:08] LABS: ABG BASE EXCESS 0.6 mmol/L (-2.0-3.0); ABG OXYGEN SATURATION 95.8 % (94.0-98.0); ABG PCO2 23.8 mmHg (35.0-48.0); ABG PO2 77.5 mmHg (83.0-108.0); ABG TOTAL HEMOGLOBIN 8.7 G/dL (13.5-17.5); COHb 0.6 % (0.5-1.5); MetHb 0.1 % (0.0-1.5); O2Hb 95.1 % (94.0-97.0); PEEP,BG 0 cm H2O; SITE, ABG RIGHT RADIAL; VT, ABG 500 mL
[2024-10-02 12:16] LABS: PROTHROMBIN TIME 61.4 SECS (9.2-11.1)
[2024-10-02 12:45] LABS: CALCIUM, SERUM 7.6 mg/dL (8.5-10.1); CREATININE 5.3 mg/dL (0.6-1.3); POTASSIUM 3.9 mmol/L (3.5-5.1)
[2024-10-02 12:46] LABS: INR 6.55 (0.91-1.10)
[2024-10-02] MEDS: NEPRO 1,000 ML BOTTLE GT PRN (13:13)
[2024-10-02] MEDS: ACETAMINOPHEN 650 MG/20.3 ML UDC NG PRN (14:10)
[2024-10-02] MEDS: VANCOMYCIN 1 GM in IV D5W 250ml IV ONE (15:50)
[2024-10-03] VITALS (78 sets, daily range): BP systolic 63–141; BP diastolic 39–78; TEMP 98.7–100.6; O2SAT 88–100
[2024-10-03 04:44] LABS: BASOPHILS # (AUTO) 0.1 K/uL (0.0-0.2); BASOPHILS % (AUTO) 0.9 % (0.0-2.0); EOSINOPHILS # (AUTO) 0.4 K/uL (0.0-0.7); EOSINOPHILS % (AUTO) 2.6 % (0.0-6.0); HEMATOCRIT 25 % (39-51); LYMPHOCYTES # (AUTO) 0.7 K/uL (0.8-4.8); LYMPHOCYTES % (AUTO) 4.8 % (20.0-44.0); MEAN CORPUSCULAR HEMOGLOBIN 34 PG (26.0-33.0); MEAN CORPUSCULAR HGB CONC 33 g/dl (31.0-36.0); MEAN CORPUSCULAR VOLUME 105 fL (80-96); MONOCYTES # (AUTO) 0.5 K/uL (0.1-1.30); MONOCYTES % (AUTO) 3.3 % (2.0-12.0); NEUTROPHILS # (AUTO) 13.7 K/uL (1.8-8.9); NEUTROPHILS % (AUTO) 88.4 % (43.0-81.0); PLATELET COUNT (AUTO) 130 K/uL (150-450); RED BLOOD CELL COUNT(AUTO) 2.36 MIL/uL (4.5-6.0); RED CELL DISTRIBUTION WIDTH 19.8 % (11.5-15.0); WHITE BLOOD COUNT (AUTO) 15.5 K/uL (4.3-11.0)
[2024-10-03] MEDS: PHENYLEPHRINE 10 MG/ML VIAL ONE (04:49)
[2024-10-03] MEDS: PHENYLEPHRINE 50 MG in IV NS 0.9% 245 ML IV PRN (04:53)
[2024-10-03 04:58] LABS: SERUM AMMONIA 71 umol/L (11-32)
[2024-10-03 05:03] LABS: ALANINE AMINOTRANSFERASE 3012 U/L (12-78); ALBUMIN 2.3 g/dL (3.4-5.0); ALKALINE PHOSPHATASE 210 U/L (46-116); ASPARTATE AMINOTRANSFERASE > 1000 U/L (15-37); BILIRUBIN,TOTAL 9.9 mg/dL (0.2-1.0); CALCIUM, SERUM 7.5 mg/dL (8.5-10.1); CARBON DIOXIDE 28 mmol/L (21-32); CHLORIDE 98 mmol/L (98-107); CREATININE 6.7 mg/dL (0.6-1.3); GLUCOSE 112 mg/dL (74-106); POTASSIUM 3.6 mmol/L (3.5-5.1); SODIUM SERUM 140 mmol/L (136-145); TOTAL PROTEIN, SERUM 5.8 g/dL (6.4-8.2); UREA NITROGEN, BLOOD 52 mg/dL (7-18)
[2024-10-03] MEDS: PHENYLEPHRINE 100 MG in IV NS 0.9% 240 ML IV PRN (11:11)
[2024-10-03] MEDS: VANCOMYCIN POST DIALYSIS 500MG IV PRN (20:27)
[2024-10-04] VITALS (84 sets, daily range): BP systolic 93–118; BP diastolic 46–63; TEMP 99.4–100.8; O2SAT 94–100
[2024-10-04 04:45] LABS: BASOPHILS # (AUTO) 0.1 K/uL (0.0-0.2); BASOPHILS % (AUTO) 0.6 % (0.0-2.0); EOSINOPHILS # (AUTO) 0.4 K/uL (0.0-0.7); EOSINOPHILS % (AUTO) 2.6 % (0.0-6.0); HEMATOCRIT 22 % (39-51); HEMOGLOBIN 7.1 g/dL (13.5-17.5); LYMPHOCYTES # (AUTO) 0.6 K/uL (0.8-4.8); LYMPHOCYTES % (AUTO) 4.3 % (20.0-44.0); MEAN CORPUSCULAR HEMOGLOBIN 34 PG (26.0-33.0); MEAN CORPUSCULAR HGB CONC 33 g/dl (31.0-36.0); MEAN CORPUSCULAR VOLUME 103 fL (80-96); MONOCYTES # (AUTO) 0.8 K/uL (0.1-1.30); MONOCYTES % (AUTO) 5.5 % (2.0-12.0); NEUTROPHILS # (AUTO) 13.1 K/uL (1.8-8.9); PLATELET COUNT (AUTO) 115 K/uL (150-450); RED BLOOD CELL COUNT(AUTO) 2.08 MIL/uL (4.5-6.0); RED CELL DISTRIBUTION WIDTH 20.1 % (11.5-15.0); WHITE BLOOD COUNT (AUTO) 15.1 K/uL (4.3-11.0)
[2024-10-04 05:10] LABS: INR 2.29 (0.91-1.10)
[2024-10-04 05:20] LABS: ALBUMIN 2.1 g/dL (3.4-5.0); BILIRUBIN,TOTAL 18.5 mg/dL (0.2-1.0); CALCIUM, SERUM 8.2 mg/dL (8.5-10.1); CREATININE 4.6 mg/dL (0.6-1.3); MAGNESIUM 1.8 mg/dL (1.8-2.4); PHOSPHORUS 4.3 mg/dL (2.5-4.9); POTASSIUM 2.9 mmol/L (3.5-5.1); TOTAL PROTEIN, SERUM 5.4 g/dL (6.4-8.2)
[2024-10-04] MEDS: POTASSIUM CHLORIDE 20 MEQ POWDER PACKET NG ONE (07:30)
[2024-10-04] MEDS: POTASSIUM CL. PREMIX PERIPHER. 50 ML IV SCH (07:31)
[2024-10-04] MEDS: LACTULOSE 10 G/15 ML UDC (PYXIS) PR ONE (08:00)
[2024-10-04] MEDS ORDERED: LACTULOSE 10 G/15 ML UDC (PYXIS) PR ONE (11:00)
[2024-10-04] MEDS: LACTULOSE UDC 200 G in SODIUM CHLORIDE IRRIG SOLUTION 400 ML IR ONE (11:44)
[2024-10-04] MEDS ORDERED: EPOETIN ALFA (10,000 UNIT) 10,000 UNIT/ML VIAL SQ SCH ×2 (15:00)
[2024-10-04] MEDS: EPOETIN ALFA (10,000 UNIT) 10,000 UNIT/ML VIAL SQ SCH (15:59)
[2024-10-05] VITALS (96 sets, daily range): BP systolic 88–111; BP diastolic 47–78; TEMP 97.4–100.5; O2SAT 95–100
[2024-10-05] MEDS: IV NS 0.9% 250 ML IV PRN (04:06)
[2024-10-05 04:42] LABS: BASOPHILS # (AUTO) 0.1 K/uL (0.0-0.2); BASOPHILS % (AUTO) 0.5 % (0.0-2.0); EOSINOPHILS # (AUTO) 0.3 K/uL (0.0-0.7); EOSINOPHILS % (AUTO) 1.8 % (0.0-6.0); LYMPHOCYTES # (AUTO) 0.7 K/uL (0.8-4.8); LYMPHOCYTES % (AUTO) 4.6 % (20.0-44.0); MEAN CORPUSCULAR HEMOGLOBIN 35 PG (26.0-33.0); MEAN CORPUSCULAR HGB CONC 33 g/dl (31.0-36.0); MEAN CORPUSCULAR VOLUME 108 fL (80-96); MONOCYTES # (AUTO) 1.1 K/uL (0.1-1.30); MONOCYTES % (AUTO) 7.4 % (2.0-12.0); NEUTROPHILS # (AUTO) 12.4 K/uL (1.8-8.9); NEUTROPHILS % (AUTO) 85.7 % (43.0-81.0); PLATELET COUNT (AUTO) 101 K/uL (150-450); RED CELL DISTRIBUTION WIDTH 21.9 % (11.5-15.0); WHITE BLOOD COUNT (AUTO) 14.4 K/uL (4.3-11.0)
[2024-10-05 05:14] LABS: HEMATOCRIT 20 % (39-51); HEMOGLOBIN 6.4 g/dL (13.5-17.5); RED BLOOD CELL COUNT(AUTO) 1.83 MIL/uL (4.5-6.0)
[2024-10-05 05:31] LABS: ALBUMIN 1.7 g/dL (3.4-5.0); BILIRUBIN,TOTAL 20.3 mg/dL (0.2-1.0); CALCIUM, SERUM 8.5 mg/dL (8.5-10.1); CREATININE 5.7 mg/dL (0.6-1.3); POTASSIUM 3.1 mmol/L (3.5-5.1); TOTAL PROTEIN, SERUM 5.1 g/dL (6.4-8.2)
[2024-10-05 05:38] LABS: EOSINOPHILS % (MANUAL) 3 % (0-4); LYMPHOCYTES % (MANUAL) 5 % (16-48); MONOCYTES % (MANUAL) 8 % (0-11.0); NEUTROPHILS % (MANUAL) 84 (42-76); PLATELET ESTIMATE DECREASED
[2024-10-05 05:39] LABS: ANISOCYTOSIS 1+
[2024-10-05 07:21] LABS: INR 1.97 (0.91-1.10); PARTIAL THROMBOPLASTIN TIME 38.8 SEC (24.3-34.3)
[2024-10-05 08:42] LABS: D-DIMER 13.12 mg/L(FEU (0.17-0.50)
[2024-10-05] MEDS: HYDROCORTISONE SOD SUCCINATE 100 MG/2 ML VIAL IV SCH (08:52)
[2024-10-05] MEDS: POTASSIUM CHLORIDE 20 MEQ POWDER PACKET GT SCH (12:02)
[2024-10-06] VITALS (97 sets, daily range): BP systolic 89–107; BP diastolic 55–69; TEMP 97.4–98.8; O2SAT 99–100
[2024-10-06 04:37] LABS: CALCIUM, SERUM 9.2 mg/dL (8.5-10.1); CREATININE 4.9 mg/dL (0.6-1.3); POTASSIUM 3.6 mmol/L (3.5-5.1)
[2024-10-06 06:06] LABS: BASOPHILS % (AUTO) 0.1 % (0.0-2.0); EOSINOPHILS % (AUTO) 0.1 % (0.0-6.0); HEMATOCRIT 29 % (39-51); HEMOGLOBIN 9.8 g/dL (13.5-17.5); LYMPHOCYTES # (AUTO) 0.6 K/uL (0.8-4.8); LYMPHOCYTES % (AUTO) 3.4 % (20.0-44.0); MEAN CORPUSCULAR HEMOGLOBIN 34 PG (26.0-33.0); MEAN CORPUSCULAR HGB CONC 34 g/dl (31.0-36.0); MEAN CORPUSCULAR VOLUME 100 fL (80-96); MONOCYTES # (AUTO) 0.8 K/uL (0.1-1.30); MONOCYTES % (AUTO) 4.6 % (2.0-12.0); NEUTROPHILS # (AUTO) 16.6 K/uL (1.8-8.9); NEUTROPHILS % (AUTO) 91.8 % (43.0-81.0); PLATELET COUNT (AUTO) 126 K/uL (150-450); RED BLOOD CELL COUNT(AUTO) 2.92 MIL/uL (4.5-6.0); RED CELL DISTRIBUTION WIDTH 23.3 % (11.5-15.0); WHITE BLOOD COUNT (AUTO) 18.1 K/uL (4.3-11.0)
[2024-10-07] VITALS (97 sets, daily range): BP systolic 87–101; BP diastolic 55–67; TEMP 97.4–98.7; O2SAT 90–100
[2024-10-07 05:32] LABS: INR 1.72 (0.91-1.10); PROTHROMBIN TIME 17.6 SECS (9.2-11.1)
[2024-10-07 05:43] LABS: BILIRUBIN,TOTAL 24.9 mg/dL (0.2-1.0); CALCIUM, SERUM 10.3 mg/dL (8.5-10.1); CREATININE 6.5 mg/dL (0.6-1.3); POTASSIUM 3.8 mmol/L (3.5-5.1); TOTAL PROTEIN, SERUM 6.4 g/dL (6.4-8.2)
[2024-10-08] VITALS (92 sets, daily range): BP systolic 88–103; BP diastolic 49–62; TEMP 97.4–98.9; O2SAT 93–100
[2024-10-08 05:17] LABS: EOSINOPHILS # (AUTO) 0.2 K/uL (0.0-0.7); EOSINOPHILS % (AUTO) 1.2 % (0.0-6.0); HEMATOCRIT 28 % (39-51); HEMOGLOBIN 9.5 g/dL (13.5-17.5); LYMPHOCYTES # (AUTO) 0.5 K/uL (0.8-4.8); LYMPHOCYTES % (AUTO) 3.4 % (20.0-44.0); MEAN CORPUSCULAR HEMOGLOBIN 34 PG (26.0-33.0); MEAN CORPUSCULAR HGB CONC 34 g/dl (31.0-36.0); MEAN CORPUSCULAR VOLUME 101 fL (80-96); MONOCYTES # (AUTO) 0.9 K/uL (0.1-1.30); MONOCYTES % (AUTO) 5.8 % (2.0-12.0); NEUTROPHILS # (AUTO) 14.3 K/uL (1.8-8.9); NEUTROPHILS % (AUTO) 89.6 % (43.0-81.0); PLATELET COUNT (AUTO) 166 K/uL (150-450); RED BLOOD CELL COUNT(AUTO) 2.78 MIL/uL (4.5-6.0); RED CELL DISTRIBUTION WIDTH 29.2 % (11.5-15.0); WHITE BLOOD COUNT (AUTO) 15.9 K/uL (4.3-11.0)
[2024-10-08 05:28] LABS: INR 1.55 (0.91-1.10)
[2024-10-08 06:22] LABS: BILIRUBIN,TOTAL 20.3 mg/dL (0.2-1.0); CALCIUM, SERUM 9.5 mg/dL (8.5-10.1); CREATININE 5.5 mg/dL (0.6-1.3); MAGNESIUM 2.5 mg/dL (1.8-2.4); POTASSIUM 3.5 mmol/L (3.5-5.1)
[2024-10-09] VITALS (91 sets, daily range): BP systolic 89–109; BP diastolic 48–66; TEMP 97.2–99.9; O2SAT 97–100
[2024-10-09 04:52] LABS: CALCIUM, SERUM 9.4 mg/dL (8.5-10.1); CREATININE 6.8 mg/dL (0.6-1.3); POTASSIUM 4.1 mmol/L (3.5-5.1)
[2024-10-09 04:55] LABS: BASOPHILS % (AUTO) 0.2 % (0.0-2.0); EOSINOPHILS # (AUTO) 0.3 K/uL (0.0-0.7); EOSINOPHILS % (AUTO) 1.9 % (0.0-6.0); HEMATOCRIT 30 % (39-51); HEMOGLOBIN 9.8 g/dL (13.5-17.5); LYMPHOCYTES # (AUTO) 0.5 K/uL (0.8-4.8); LYMPHOCYTES % (AUTO) 3.7 % (20.0-44.0); MEAN CORPUSCULAR HEMOGLOBIN 34 PG (26.0-33.0); MEAN CORPUSCULAR HGB CONC 33 g/dl (31.0-36.0); MEAN CORPUSCULAR VOLUME 104 fL (80-96); MONOCYTES # (AUTO) 0.7 K/uL (0.1-1.30); MONOCYTES % (AUTO) 4.8 % (2.0-12.0); NEUTROPHILS # (AUTO) 12.6 K/uL (1.8-8.9); NEUTROPHILS % (AUTO) 89.4 % (43.0-81.0); PLATELET COUNT (AUTO) 163 K/uL (150-450); RED CELL DISTRIBUTION WIDTH 32.3 % (11.5-15.0); WHITE BLOOD COUNT (AUTO) 14.1 K/uL (4.3-11.0)
[2024-10-09 06:14] LABS: PLATELET ESTIMATE DECREASED
[2024-10-09 06:16] LABS: EOSINOPHILS % (MANUAL) 1 % (0-4); LYMPHOCYTES % (MANUAL) 5 % (16-48); MONOCYTES % (MANUAL) 3 % (0-11.0); NEUTROPHILS % (MANUAL) 91 (42-76)
[2024-10-09 06:26] LABS: ANISOCYTOSIS 1+
[2024-10-10] VITALS (96 sets, daily range): BP systolic 89–129; BP diastolic 51–114; TEMP 97.1–99.2; O2SAT 99–100
[2024-10-10 03:49] LABS: CALCIUM, SERUM 9.5 mg/dL (8.5-10.1); POTASSIUM 3.8 mmol/L (3.5-5.1)
[2024-10-11] VITALS (50 sets, daily range): BP systolic 70–103; BP diastolic 41–75; TEMP 97–99.3; O2SAT 86–100
[2024-10-11 04:46] LABS: BASOPHILS % (AUTO) 0.2 % (0.0-2.0); EOSINOPHILS # (AUTO) 0.2 K/uL (0.0-0.7); EOSINOPHILS % (AUTO) 1.8 % (0.0-6.0); HEMATOCRIT 31 % (39-51); HEMOGLOBIN 10.4 g/dL (13.5-17.5); LYMPHOCYTES # (AUTO) 0.5 K/uL (0.8-4.8); LYMPHOCYTES % (AUTO) 4.9 % (20.0-44.0); MEAN CORPUSCULAR HEMOGLOBIN 35 PG (26.0-33.0); MEAN CORPUSCULAR HGB CONC 33 g/dl (31.0-36.0); MEAN CORPUSCULAR VOLUME 105 fL (80-96); MONOCYTES # (AUTO) 0.4 K/uL (0.1-1.30); MONOCYTES % (AUTO) 3.8 % (2.0-12.0); NEUTROPHILS # (AUTO) 9.9 K/uL (1.8-8.9); NEUTROPHILS % (AUTO) 89.3 % (43.0-81.0); PLATELET COUNT (AUTO) 197 K/uL (150-450); RED BLOOD CELL COUNT(AUTO) 2.95 MIL/uL (4.5-6.0); RED CELL DISTRIBUTION WIDTH 31.7 % (11.5-15.0); WHITE BLOOD COUNT (AUTO) 11.1 K/uL (4.3-11.0)
[2024-10-11 04:59] LABS: ALBUMIN 1.7 g/dL (3.4-5.0); CALCIUM, SERUM 9.3 mg/dL (8.5-10.1); CREATININE 5.1 mg/dL (0.6-1.3); TOTAL PROTEIN, SERUM 6.4 g/dL (6.4-8.2)
[2024-10-11] MEDS: MORPHINE SULFATE PF DRIP 100 MG in IV D5W 96 ML IV PRN (12:09)
[2024-10-11] MEDS ORDERED: KEY,NONCONTROL,TO KEEP IN PYXI 1 EA MC ONE ×2 (21:08→21:54)
[2024-10-12] MEDS ORDERED: KEY,NONCONTROL,TO KEEP IN PYXI 1 EA MC ONE ×3 (00:56→05:59)
== END 2024-10-12 05:55 | DRG 870 ==
LOC: ER 07:41 → TELE-TD 13:39 → TELE1 16:17 → ICU 09-15 08:47 → TELE 09-17 21:22 → ICU 09-18 09:53 → TELE 09-21 14:59 → ICU 10-01 03:52 → MEDSG1 10-11 20:46
PROVIDERS: ADMIT Internal Medicine; ATTEND Internal Medicine
PROC: 5A1D70Z Performance of Urinary Filtration, Intermittent, Less than 6 Hours Per Day (ICD-10-PCS; 2024-09-13)
PROC: 02HV33Z Insertion of Infusion Device into Superior Vena Cava, Percutaneous Approach (ICD-10-PCS; principal; 2024-09-14)
PROC: B548ZZA Ultrasonography of Superior Vena Cava, Guidance (ICD-10-PCS; 2024-09-14)
PROC: 02HV33Z Insertion of Infusion Device into Superior Vena Cava, Percutaneous Approach (ICD-10-PCS; 2024-09-18)
PROC: B548ZZA Ultrasonography of Superior Vena Cava, Guidance (ICD-10-PCS; 2024-09-18)
PROC: 5A12012 Performance of Cardiac Output, Single, Manual (ICD-10-PCS; 2024-09-22)
PROC: 5A12012 Performance of Cardiac Output, Single, Manual (ICD-10-PCS; 2024-10-01)
PROC: 0BH18EZ Insertion of Endotracheal Airway into Trachea, Via Natural or Artificial Opening Endoscopic (ICD-10-PCS; 2024-10-01)
PROC: 5A1955Z Respiratory Ventilation, Greater than 96 Consecutive Hours (ICD-10-PCS; 2024-10-01)
PROC: 30233N1 Transfusion of Nonautologous Red Blood Cells into Peripheral Vein, Percutaneous Approach (ICD-10-PCS; 2024-10-05)
DX: A41.01 Sepsis due to Methicillin susceptible Staphylococcus aureus (principal); J96.01 Acute respiratory failure with hypoxia; N18.6 End stage renal disease; R65.21 Severe sepsis with septic shock; I50.31 Acute diastolic (congestive) heart failure; K72.00 Acute and subacute hepatic failure without coma; G92.8 Other toxic encephalopathy; J69.0 Pneumonitis due to inhalation of food and vomit; I33.0 Acute and subacute infective endocarditis; I13.2 Hypertensive heart and chronic kidney disease with heart failure and with stage 5 chronic kidney disease, or end stage renal disease; I47.20 Ventricular tachycardia, unspecified; E87.4 Mixed disorder of acid-base balance; I48.92 Unspecified atrial flutter; G93.1 Anoxic brain damage, not elsewhere classified; D68.9 Coagulation defect, unspecified; Z51.5 Encounter for palliative care; E87.5 Hyperkalemia; I48.0 Paroxysmal atrial fibrillation; D69.6 Thrombocytopenia, unspecified; E03.9 Hypothyroidism, unspecified; I25.10 Atherosclerotic heart disease of native coronary artery without angina pectoris; I46.9 Cardiac arrest, cause unspecified; E83.9 Disorder of mineral metabolism, unspecified; R13.10 Dysphagia, unspecified; Z87.01 Personal history of pneumonia (recurrent); G40.909 Epilepsy, unspecified, not intractable, without status epilepticus; F41.9 Anxiety disorder, unspecified; E83.39 Other disorders of phosphorus metabolism; F29 Unspecified psychosis not due to a substance or known physiological condition; D64.9 Anemia, unspecified; E11.22 Type 2 diabetes mellitus with diabetic chronic kidney disease; D72.829 Elevated white blood cell count, unspecified; T40.1X1A Poisoning by heroin, accidental (unintentional), initial encounter; F11.10 Opioid abuse, uncomplicated; Y92.230 Patient room in hospital as the place of occurrence of the external cause; Z99.2 Dependence on renal dialysis; Z79.01 Long term (current) use of anticoagulants; M79.662 Pain in left lower leg; M79.661 Pain in right lower leg; E16.2 Hypoglycemia, unspecified; Z20.822 Contact with and (suspected) exposure to COVID-19; I27.20 Pulmonary hypertension, unspecified; R74.01 Elevation of levels of liver transaminase levels
CPT/HCPCS: 31720; 36415; 36569; 70450-TC; 71045-TC; 71250-TC; 80048-TC; 80053-TC; 80202-TC; 82140-TC; 82247-TC; 82248-TC; 82272-TC; 82533; 82947-TC; 82962-TC; 83010; 83605-TC; 83735-TC; 83880; 84100-TC; 85025-TC; 85396; 85610-TC; 86706; 86803; 86850-TC; 87040-TC; 87081-TC; 87340; 87806; 90935-TC; 93307-TC; 93930-TC; 93970-TC; 94003-TC; 94762-TC; 94799-TC; 95819-TC; 97110-TC; 97116-TC; 97530-TC; A4216; A4217; A4223; A6403; A7526; G0378; J0171; J0690; J0692; J0885; J1160; J1200; J1720; J2270; J2274; J2290; J2310; J2405; J2543; J3370; J3475; J3480; J3490; J7030; J7040; J7050; J7060; P9016; P9047; Q0163